=== PATIENT | female | born 1995 | race Caucasian/White ===

== ENCOUNTER 2023-09-20 11:15 | Outpatient (OUT) | payer BC, SELFPAY ==
[2023-09-20 11:49] LABS: Basophils Absolute Auto 0.1 10^3/uL (0.0-0.1); Basophils Percent Auto 0.8 % (0.2-2.0); Eosinophils Absolute Auto 0.1 10^3/uL (0.0-0.7); Eosinophils Percent Auto 0.5 % (0.9-7.0); Hematocrit 44.2 % (36.0-48.0); Hemoglobin 14.9 g/dL (12.0-16.0); Immature Granulocytes Abs Auto 0.05 10^3/uL (0.00-0.03); Immature Granulocytes Pct Auto 0.4 % (0.0-0.5); Lymphocytes Absolute Auto 2.1 10^3/uL (1.2-3.8); Lymphocytes Percent Auto 18.9 % (20.5-60.0); Mean Corpuscular HGB Conc 33.7 g/dL (29.9-35.2); Mean Corpuscular Hemoglobin 30.4 pg (26.7-34.0); Mean Corpuscular Volume 90.2 fL (81.0-99.0); Mean Platelet Volume 9.7 fL (9.5-13.5); Monocytes Absolute Auto 0.9 10^3/uL (0.3-0.8); Neutrophils Percent Auto 71.4 % (43.0-75.0); Platelet Count 348 10^3/uL (150-450); Red Cell Distribution Width 13.4 % (11.0-15.0); White Blood Count 11.2 10^3/uL (4.0-11.0)
[2023-09-20 12:02] LABS: Estimated Average Glucose 97 mg/dL
[2023-09-20 13:20] LABS: Alanine Aminotransferase 24 U/L (14-59); Albumin Level 3.9 g/dL (3.4-5.0); Alkaline Phosphatase 70 U/L (46-116); Anion Gap 13.1; Aspartate Amino Transferase 14 U/L (15-37); BUN Creatinine Ratio 9.2; Bilirubin Total 0.7 mg/dL (0.2-1.0); Calcium 9.7 mg/dL (8.5-10.1); Carbon Dioxide 26.4 mmol/L (21.0-32.0); Chloride 101 mmol/L (98-107); Chol HDL Ratio 2.6; Cholesterol 188 mg/dL (<=200); Estimated GFR (African America >60 (>=60); Estimated GFR (Non-African Ame >60 (>=60); Free T3 2.66 pg/mL (2.18-3.98); Glucose 89 mg/dL (74-106); HDL Cholesterol 72 mg/dL (40-60); Potassium 3.5 mmol/L (3.5-5.1); Sodium 137 mmol/L (136-145); Thyroid Stimulating Hormone 1.477 uIU/mL (0.358-3.740); Total Protein 7.9 g/dL (6.4-8.2); Triglycerides 85 mg/dL (<=150)
[2023-09-21 10:09] LABS: Insulin 11.4 uIU/mL (2.6-24.9)
== END 2023-09-20 11:16 | disposition home or self-care (01) ==
PROVIDERS: PCP Family Medicine; Visit Provider Family Medicine
DX: Z00.00 Encounter for general adult medical examination without abnormal findings (principal); E78.5 Hyperlipidemia, unspecified; R73.09 Other abnormal glucose; E55.9 Vitamin D deficiency, unspecified
CPT/HCPCS: 36415; 80053; 80061; 83036; 83525; 83540; 84436; 84443; 84481; 85025

== ENCOUNTER 2024-02-05 21:07 | Outpatient (REF) | payer SELFPAY ==
--- OUTSIDE RECORDS SUMMARY | 2024-02-05 21:12 | XMS_ITS | CCD ---
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 Consul nasima Unavailable PROVIDER, UNKNOWN Admitting Unavailable PROVIDER, UNKNOWN Attending Unavailable BOBBY DAWSON Primary Care Unavailable PROVIDER, UNKNOWN Admitting Unavailable PROVIDER, UNKNOWN Attending Unavailable BOBBY DAWSON Primary Care Unavailable DR BOBBY DAWSON Admitting Unavailable SAMIR, DR ROSALES Primary Care Unavailable SAMIR, DR ROSALES Consulting Unavailable SAMIR, DR ROSALES Attending Unavailable KAREKTAK, DR MARSHALL Attending Unavailable SAMIR, DR ROSALES Primary Care Unavailable KARMELISSA, DR MARSHALL Admitting Unavailable ROSY, DR MARSHALL Consulting Unavailable BOBBY DAWSON Primary Care Unavailable KENYATTA REIS Admitting Unavailable KENYATTA REIS Attending Unavailable Problems Active Problems Problem Classification Problem Date Documented Date Episodic/Chronic Immunizations and screening for infectious disease (5 sources) Encounter for screening for infections with a predominantly sexual mode of transmission; Translations: [Encounter for screening for human papillomavirus (HPV)] Onset: 12-21-2021 Episodic Other screening for suspected conditions (not mental disorders or infectious disease) (1 source) Encounter for screening for malignant neoplasm of cervix; Translations: [ENC SCREENING MALIG NEOPLASM CERV] Onset: 12-24-2021 Episodic Unclassified (2 sources) CONTACT W/AND (SUSP) EXPOS COVID-19; Translations: [CONTACT W/AND (SUSP) EXPOS COVID-19] Onset: 03-01-2021 Viral infection (1 source) COVID-19; Translations: [COVID-19] Onset: 03-01-2021 Past or Other Problems Problem Classification Problem Date Documented Da te Episodic/Chronic Acute bronchitis (1 source) Acute bronchitis, unspecified; Translations: [ACUTE BRONCHITIS UNSPECIFIED] Onset: 03-01-2021 Episodic Unclassified (1 source) CONTACT W/AND (SUSP) EXPOS COVID-19; Translations: [CONTACT W/AND (SUSP) EXPOS COVID-19] Onset: 02-25-2021 Results Test Name Value Interpretation Reference Range Facility CBC with Diffon 01-25-2022 Abs. Basophil 0.11 k/uL Normal 0.00-0.20 [facility] Comment on above: Performed By: #### C DP, CMPX #### [facility] [address] [place] [address] [place] [address] Hr Payroll Coordinator: Earl Izquierdo MD Abs.Imm.Granulocyte 0.10 k/uL Normal 0.00-0.30 [facility] Comment on above: Performed By: #### C DP, CMPX #### [address] [place] [address] Hr Payroll Coordinator: Earl Izquierdo MD Abs.Neutrophil (Seg) 7.04 k/uL Normal 1.50-8.10 [facility] Comment on above: Performed By: #### C DP, CMPX #### [address] [place] [id number] Hr Payroll Coordinator: Earl Izquierdo MD Basophils/100 WBC (Bld) 1 % Normal 0-2 [facility] Comment on above: Performed By: #### C DP, CMPX #### [facility] [address] [place] [address] [place] [address] Hr Payroll Coordinator: Earl Izquierdo MD Eosinophils (Bld) [#/Vol] 0.48 10*3/uL High 0.00-0.44 [facility] Comment on above: Performed By: #### C DP, CMPX #### [address] [place] [id number] Hr Payroll Coordinator: Earl Izquierdo MD Eosinophils/100 WBC (Bld) 4 % Normal 1-4 [facility] Comment on above: Performed By: #### C DP, CMPX #### [facility] [address] [place], [place] [id number] Hr Payroll Coordinator: Earl Izquierdo MD Erythrocyte distribution width (RBC) [Ratio] 16.3 % High 11.8-14.4 [facility] Comment on above: Performed By: #### C DP, CMPX #### [facility] [address] [place], [place] 6442783 Hr Payroll Coordinator: Earl Izquierdo MD Hematocrit (Bld) [Volume fraction] 41.0 % Normal 36.3-47.1 [facility] Comment on above: Performed By: #### C DP, CMPX #### [address] [place], [place] 8687583 Hr Payroll Coordinator: Earl Izquierdo MD Hemoglobin (Bld) [Mass/Vol] 12.6 g/dL Normal 11.9-15.1 [facility] Comment on above: Performed By: #### C DP, CMPX #### [address] [place], [place] [id number] Hr Payroll Coordinator: Earl Izquierdo MD Immature granulocytes/100 WBC (Bld) 1 % High 0 [facility] Comment on above: Performed By: #### C DP, CMPX #### [facility] [address] [place] [address] Dr. [place], [place] 7848883 Hr Payroll Coordinator: Earl Izquierdo MD Lymphocytes (Bld) [#/Vol] 4.07 10*3/uL High 1.10-3.70 [facility] Comment on above: Performed By: #### C DP, CMPX #### [facility] [address] [place], [place] [id number] Hr Payroll Coordinator: Earl Izquierdo MD Lymphocytes/100 WBC (Bld) 31 % Normal 24-43 [facility] Comment on above: Performed By: #### C DP, CMPX #### [facility] [address] [place], [place] 3351383 Hr Payroll Coordinator: Earl Izquierdo MD MCH (RBC) [Entitic mass] 27.9 pg Normal 25.2-33.5 [facility] Comment on above: Performed By: #### C DP, CMPX #### [facility] [address] [place], [facility]83 Hr Payroll Coordinator: Earl Izquierdo MD MCHC (RBC) [Mass/Vol] 30.7 g/dL Normal 28.4-34.8 [facility] Comment on above: Performed By: #### C DP, CMPX #### [facility] [address] [place], [facility]83 Hr Payroll Coordinator: Earl Izquierdo MD MCV (RBC) [Entitic vol] 90.9 fL Normal 82.6-102.9 [facility] Comment on above: Performed By: #### C DP, CMPX #### [facility] [address] [place], [facility]83 Hr Payroll Coordinator: Earl Izquierdo MD Monocytes (Bld) [#/Vol] 1.19 10*3/uL Normal 0.10-1.20 [facility] Comment on above: Performed By: #### C DP, CMPX #### [facility] [address] [place], [facility]83 Hr Payroll Coordinator: Earl Izquierdo MD Monocytes/100 WBC (Bld) 9 % Normal 3-12 [facility] Comment on above: Performed By: #### C DP, CMPX #### [facility] [address] [place] [address] Hr Payroll Coordinator: Earl Izquierdo MD Neutrophil (Seg) 54 % Normal 36-65 [facility] Comment on above: Performed By: #### C DP, CMPX #### [facility] [address] [place], [place] 0426583 Hr Payroll Coordinator: Earl Izquierdo MD NRBC Automated 0.0 per 100 WBC Normal 0.0 [facility] Comment on above: Performed By: #### C DP, CMPX #### [facility] [address] [place], [place] 9352283 Hr Payroll Coordinator: Earl Izquierdo MD Platelet mean volume (Bld) [Entitic vol] 10.0 fL Normal 8.1-13.5 [facility] Comment on above: Performed By: #### C DP, CMPX #### [address] [place], [place] 0140783 Hr Payroll Coordinator: Earl Izquierdo MD Platelets (Bld) [#/Vol] 383 10*3/uL Normal 138-453 [facility] Comment on above: Performed By: #### C DP, CMPX #### [address] [place], [place] 2145883 Hr Payroll Coordinator: Earl Izquierdo MD RBC (Bld) [#/Vol] 4.51 10*6/uL Normal 3.95-5.11 [facility] Comment on above: Performed By: #### C DP, CMPX #### [address] [place], [place] [id number] Hr Payroll Coordinator: aErl Izquierdo MD WBC (Bld) [#/Vol] 13.0 10*3/uL High 3.5-11.3 [facility] Comment on above: Performed By: #### C DP, CMPX #### [address] [place] [address] Hr Payroll Coordinator: Earl Izquierdo MD Comp Metabolic Pr/rfx MGon 0 01-25-2022 (cont.) Normal [facility] Comment on above: Result Comment: Aver age GFR for 20-29 years old: 116 mL/min/1.73sq m Chronic Kidney Disease: <60 mL/min/1.73sq m Kidney failure: <15 mL/min/1.73sq m eGFR calculated using average adult body mass. Additional eGFR calculator available at: http://www.[facility]/multiple_crcl_2012.htm Performed By: #### C DP, CMPX #### [facility] [address] [place] [address] [place] [address] Hr Payroll Coordinator: Earl Izquierdo MD Albumin [Mass/Vol] 3.7 g/dL Normal 3.5-5.2 [facility] Comment on above: Performed By: #### C DP, CMPX #### [facility] [address] [place] [address] [place] [address] Hr Payroll Coordinator: Earl Izquierdo MD Albumin/Glob Ratio 1.6 Normal 1.0-2.5 [facility] Comment on above: Performed By: #### C DP, CMPX #### [facility] [address] [place] [address] Dr[address] [place], [place] 6805583 Hr Payroll Coordinator: Earl Izquierdo MD Alkaline Phos 55 U/L Normal 35-104 [facility] Comment on above: Performed By: #### C DP, CMPX #### [address] [place] [address] Hr Payroll Coordinator: Earl Izquierdo MD ALT [Catalytic activity/Vol] 11 U/L Normal 5-33 [facility] Comment on above: Performed By: #### C DP, CMPX #### [facility] [address] [place], [place] [id number] Hr Payroll Coordinator: Earl Izquierdo MD Anion gap [Moles/Vol] 8 mmol/L Low 9-17 [facility] Comment on above: Performed By: #### C DP, CMPX #### [facility] [address] [place] [address] [place] [address] Hr Payroll Coordinator: Earl Izquierdo MD AST [Catalytic activity/Vol] 11 U/L Normal <32 [facility] Comment on above: Performed By: #### C DP, CMPX #### [facility] [address] [place], [place] 4829683 Hr Payroll Coordinator: Earl Izquierdo MD Bilirubin [Mass/Vol] 0.2 mg/dL Low 0.3-1.2 [facility] Comment on above: Performed By: #### C DP, CMPX #### [facility] [address] [place], [place] 7411483 Hr Payroll Coordinator: Earl Izquierdo MD BUN/CRE Ratio 12 Normal 9-20 [facility] Comment on above: Performed By: #### C DP, CMPX #### [facility] [address] [place] [address] Hr Payroll Coordinator: Earl Izquierdo MD Calcium [Mass/Vol] 8.6 mg/dL Normal 8.6-10.4 [facility] Comment on above: Performed By: #### C DP, CMPX #### [address] [place], [place] 4149783 Hr Payroll Coordinator: Earl Izquierdo MD Chloride [Moles/Vol] 107 mmol/L Normal 98-107 [facility] Comment on above: Performed By: #### C DP, CMPX #### [facility] [address] [place], [place] [id number] Hr Payroll Coordinator: Earl Izquierdo MD CO2 [Moles/Vol] 26 mmol/L Normal 20-31 [facility] Comment on above: Performed By: #### C DP, CMPX #### [facility] [address] [place], [place] 7111083 Hr Payroll Coordinator: Earl Izquierdo MD Creatinine [Mass/Vol] 0.68 mg/dL Normal 0.50-0.90 [facility] Comment on above: Performed By: #### C DP, CMPX #### [facility] [address] [place], [place] 9412583 Hr Payroll Coordinator: Earl Izquierdo MD GFR, Amer >60 Normal >60 [facility] Comment on above: Performed By: #### C DP, CMPX #### [facility] [address] [place], [place] 0872083 Hr Payroll Coordinator: Earl Izquierdo MD GFR,non Amer >60 Normal >60 [facility] Comment on above: Performed By: #### C DP, CMPX #### [facility] [address] [place], [place] 7649883 Hr Payroll Coordinator: Earl Izquierdo MD Glucose [Mass/Vol] 95 mg/dL Normal 70-99 [facility] Comment on above: Performed By: #### C DP, CMPX #### [facility] [address] [place], [place] 8068183 Hr Payroll Coordinator: Earl Izquierdo MD Potassium [Moles/Vol] 4.0 mmol/L Normal 3.7-5.3 [facility] Comment on above: Performed By: #### C DP, CMPX #### [facility] [address] [place] [address] Dr[address] [place], [place] 3691283 Hr Payroll Coordinator: Earl Izquierdo MD Protein [Mass/Vol] 6.0 g/dL Low 6.4-8.3 [facility] Comment on above: Performed By: #### C DP, CMPX #### [facility] [address] [place], [place] [id number] Hr Payroll Coordinator: Earl Izquierdo MD Sodium [Moles/Vol] 141 mmol/L Normal 135-144 [facility] Comment on above: Performed By: #### C DP, CMPX #### [facility] [address] [place] [address] Hr Payroll Coordinator: Earl Izquierdo MD Staging: Normal [facility] Comment on above: Result Comment: Stag e 1: Some kidney damage normal GFR Stage 2: Mild kidney damage GFR 60-89 Stage 3: Moderate kidney damage GFR 30-59 Stage 4: Severe kidney damage GFR 15-29 Stage 5: Severe kidney damage GFR <15 ESRD - chronic treatment by dialysis or transplant Performed By: #### C DP, CMPX #### [facility] [address] [place] [address] [place] [address] Hr Payroll Coordinator: Earl Izquierdo MD Urea nitrogen [Mass/Vol] 8 mg/dL Normal 6-20 [facility] Comment on above: Performed By: #### C DP, CMPX #### [address] [place], [place] 8714983 Hr Payroll Coordinator: Earl Izquierdo MD Acetaminophenon 01-24-2022 Acetaminophen [Mass/Vol] ug/mL Low 10-30 [facility] Comment on above: Performed By: #### C DP, CMPX #### [facility] [address] [place] [address] Dr. [place], [facility]83 Hr Payroll Coordinator: Earl Izquierdo MD CBC with Diffon 01-24-2022 Abs. Basophil 0.12 k/uL Normal 0.00-0.20 [facility] Comment on above: Performed By: #### C DP, CP #### [address] [place], [place] 3052083 Hr Payroll Coordinator: Earl Izquierdo MD Abs.Imm.Granulocyte 0.05 k/uL Normal 0.00-0.30 [facility] Comment on above: Performed By: #### C DP, CP #### [facility] [address] [place] [address] Dr. [place], [place] [id number] Hr Payroll Coordinator: Earl Izquierdo MD Abs.Neutrophil (Seg) 7.91 k/uL Normal 1.50-8.10 [facility] Comment on above: Performed By: #### C DP, CP #### [address] [place], [place] 8111183 Hr Payroll Coordinator: Earl Izquierdo MD Basophils/100 WBC (Bld) 1 % Normal 0-2 [facility] Comment on above: Performed By: #### C DP, CP #### [facility] [address] [place], [place] 6194783 Hr Payroll Coordinator: Earl Izquierdo MD Eosinophils (Bld) [#/Vol] 0.46 10*3/uL High 0.00-0.44 [facility] Comment on above: Performed By: #### C DP, CP #### [address] [place], [place] 0769883 Hr Payroll Coordinator: Earl Izquierdo MD Eosinophils/100 WBC (Bld) 4 % Normal 1-4 [facility] Comment on above: Performed By: #### C DP, CP #### [address] [place], [facility]83 Hr Payroll Coordinator: Earl Izquierdo MD Erythrocyte distribution width (RBC) [Ratio] 15.9 % High 11.8-14.4 [facility] Comment on above: Performed By: #### C DP, CP #### [address] [place], [facility]83 Hr Payroll Coordinator: Earl Izquierdo MD Hematocrit (Bld) [Volume fraction] 45.7 % Normal 36.3-47.1 [facility] Comment on above: Performed By: #### C DP, CP #### [address] [place], [facility]83 Hr Payroll Coordinator: Earl Izquierdo MD Hemoglobin (Bld) [Mass/Vol] 14.5 g/dL Normal 11.9-15.1 [facility] Comment on above: Performed By: #### C DP, CP #### [address] [place] [address] Hr Payroll Coordinator: Earl Izquierdo MD Immature granulocytes/100 WBC (Bld) 0 % Normal 0 [facility] Comment on above: Performed By: #### C DP, CP #### [facility] [address] [place], [facility]83 Hr Payroll Coordinator: Earl Izquierdo MD Lymphocytes (Bld) [#/Vol] 3.57 10*3/uL Normal 1.10-3.70 [facility] Comment on above: Performed By: #### C DP, CP #### [address] [place], [facility]83 Hr Payroll Coordinator: Earl Izquierdo MD Lymphocytes/100 WBC (Bld) 27 % Normal 24-43 [facility] Comment on above: Performed By: #### C DP, CP #### [address] [place], [facility]83 Hr Payroll Coordinator: Earl Izquierdo MD MCH (RBC) [Entitic mass] 28.0 pg Normal 25.2-33.5 [facility] Comment on above: Performed By: #### C DP, CP #### [address] [place], [facility]83 Hr Payroll Coordinator: Earl Izquierdo MD MCHC (RBC) [Mass/Vol] 31.7 g/dL Normal 28.4-34.8 [facility] Comment on above: Performed By: #### C DP, CP #### [address] [place], [place] [address] Hr Payroll Coordinator: Earl Izquierdo MD MCV (RBC) [Entitic vol] 88.2 fL Normal 82.6-102.9 [facility] Comment on above: Performed By: #### C DP, CP #### [address] [place], [facility]83 Hr Payroll Coordinator: Earl Izquierdo MD Monocytes (Bld) [#/Vol] 0.94 10*3/uL Normal 0.10-1.20 [facility] Comment on above: Performed By: #### C DP, CP #### [facility] [address] [place], [place] 7663283 Hr Payroll Coordinator: Earl Izquierdo MD Monocytes/100 WBC (Bld) 7 % Normal 3-12 [facility] Comment on above: Performed By: #### C DP, CP #### [facility] [address] [place], [place] 0091683 Hr Payroll Coordinator: Earl Izquierdo MD Neutrophil (Seg) 61 % Normal 36-65 [facility] Comment on above: Performed By: #### C DP, CP #### [facility] [address] [place], [place] 5946283 Hr Payroll Coordinator: Earl Izquierdo MD NRBC Automated 0.0 per 100 WBC Normal 0.0 [facility] Comment on above: Performed By: #### C DP, CP #### [address] [place], [place] 7966483 Hr Payroll Coordinator: Earl Izquierdo MD Platelet mean volume (Bld) [Entitic vol] 9.6 fL Normal 8.1-13.5 [facility] Comment on above: Performed By: #### C DP, CP #### [address] [place], [place] 9288383 Hr Payroll Coordinator: Earl Izquierdo MD Platelets (Bld) [#/Vol] 445 10*3/uL Normal 138-453 [facility] Comment on above: Performed By: #### C DP, CP #### [facility] [address] [place] [address] Dr. [place], [place] 7368483 Hr Payroll Coordinator: Earl Izquierdo MD RBC (Bld) [#/Vol] 5.18 10*6/uL High 3.95-5.11 [facility] Comment on above: Performed By: #### C DP, CP #### [address] [place] [address] Hr Payroll Coordinator: Earl Izquierdo MD WBC (Bld) [#/Vol] 13.1 10*3/uL High 3.5-11.3 [facility] Comment on above: Performed By: #### C DP, CP #### [facility] [address] [place] [address] Hr Payroll Coordinator: Earl Izquierdo MD Comp Metabolic Profon 2021 (cont.) Normal [facility] Comment on above: Result Comment: Aver age GFR for 20-29 years old: 116 mL/min/1.73sq m Chronic Kidney Disease: <60 mL/min/1.73sq m Kidney failure: <15 mL/min/1.73sq m eGFR calculated using average adult body mass. Additional eGFR calculator available at: http://www.[facility]/multiple_crcl_2011.htm Performed By: #### C ALLAN, CP #### [facility] [address] [place], [place] 9704983 Hr Payroll Coordinator: Earl Izquierdo MD Albumin [Mass/Vol] 4.9 g/dL Normal 3.5-5.2 [facility] Comment on above: Performed By: #### C DP, CP #### [address] [place], [place] 2448683 Hr Payroll Coordinator: Earl Izquierdo MD Albumin/Glob Ratio 1.8 Normal 1.0-2.5 [facility] Comment on above: Performed By: #### C DP, CP #### [facility] [address] [place], [place] 9852283 Hr Payroll Coordinator: Earl Izquierdo MD Alkaline Phos 67 U/L Normal 35-104 [facility] Comment on above: Performed By: #### C DP, CP #### [facility] [address] [place] [address] Hr Payroll Coordinator: Earl Izquierdo MD ALT [Catalytic activity/Vol] 14 U/L Normal 5-33 [facility] Comment on above: Performed By: #### C DP, CP #### [facility] [address] [place], [place] 6923583 Hr Payroll Coordinator: Earl Izquierdo MD Anion gap [Moles/Vol] 11 mmol/L Normal 9-17 [facility] Comment on above: Performed By: #### C DP, CP #### [facility] [address] [place], [place] 7964683 Hr Payroll Coordinator: Earl Izquierdo MD AST [Catalytic activity/Vol] 18 U/L Normal <32 [facility] Comment on above: Performed By: #### C DP, CP #### [facility] [address] [place], [place] 1445083 Hr Payroll Coordinator: Earl Izquierdo MD Bilirubin [Mass/Vol] 0.2 mg/dL Low 0.3-1.2 [facility] Comment on above: Performed By: #### C DP, CP #### [facility] [address] [place], [place] 2115783 Hr Payroll Coordinator: aErl Izquierdo MD BUN/CRE Ratio 7 Low 9-20 [facility] Comment on above: Performed By: #### C DP, CP #### [address] [place], [place] 6108883 Hr Payroll Coordinator: Earl Izquierdo MD Calcium [Mass/Vol] 9.5 mg/dL Normal 8.6-10.4 [facility] Comment on above: Performed By: #### C DP, CP #### [facility] [address] [place], [place] 3884883 Hr Payroll Coordinator: Earl Izquierdo MD Chloride [Moles/Vol] 106 mmol/L Normal 98-107 [facility] Comment on above: Performed By: #### C DP, CP #### [facility] [address] [place], [place] 8315383 Hr Payroll Coordinator: Earl Izquierdo MD CO2 [Moles/Vol] 25 mmol/L Normal 20-31 [facility] Comment on above: Performed By: #### C DP, CP #### [facility] [address] [place], [place] 5423883 Hr Payroll Coordinator: Earl Izquierdo MD Creatinine [Mass/Vol] 0.74 mg/dL Normal 0.50-0.90 [facility] Comment on above: Performed By: #### C DP, CP #### [facility] [address] [place], [place] 3772483 Hr Payroll Coordinator: Earl Izquierdo MD GFR, Amer >60 Normal >60 [facility] Comment on above: Performed By: #### C DP, CP #### [facility] [address] [place], [place] 9859783 Hr Payroll Coordinator: Earl Izquierdo MD GFR,non Amer >60 Normal >60 [facility] Comment on above: Performed By: #### C DP, CP #### [facility] [address] [place], [place] 0600283 Hr Payroll Coordinator: Earl Izquierdo MD Glucose [Mass/Vol] 95 mg/dL Normal 70-99 [facility] Comment on above: Performed By: #### C DP, CP #### [facility] [address] [place], [place] 2862483 Hr Payroll Coordinator: Earl Izquierdo MD Potassium [Moles/Vol] 3.6 mmol/L Low 3.7-5.3 [facility] Comment on above: Performed By: #### C DP, CP #### [facility] [address] [place], [place] 3754683 Hr Payroll Coordinator: Earl Izquierdo MD Protein [Mass/Vol] 7.7 g/dL Normal 6.4-8.3 [facility] Comment on above: Performed By: #### C DP, CP #### [facility] [address] [place], [place] 5318783 Hr Payroll Coordinator: Earl Izquierdo MD Sodium [Moles/Vol] 142 mmol/L Normal 135-144 [facility] Comment on above: Performed By: #### C DP, CP #### [facility] [address] [place] [address] [address] [place], [place] 1155183 Hr Payroll Coordinator: Earl Izquierdo MD Staging: Normal [facility] Comment on above: Result Comment: Stag e 1: Some kidney damage normal GFR Stage 2: Mild kidney damage GFR 60-89 Stage 3: Moderate kidney damage GFR 30-59 Stage 4: Severe kidney damage GFR 15-29 Stage 5: Severe kidney damage GFR <15 ESRD - chronic treatment by dialysis or transplant Performed By: #### C DP, CP #### [facility] [address] [place] [address] [place] [address] Hr Payroll Coordinator: Earl Izquierdo MD Urea nitrogen [Mass/Vol] 5 mg/dL Low 6-20 [facility] Comment on above: Performed By: #### C DP, CP #### [facility] [address] [place] [address] [address], [place] 3782083 Hr Payroll Coordinator: Earl Izquierdo MD Drug Scr, Abuse, Uron 2021 Amphetamine(s),Ur Negative Normal NEG [facility] Comment on above: Performed By: #### U HCG, UA, ARCENIO #### [address] [place], [place] [id number] Hr Payroll Coordinator: Earl Izquierdo MD Barbiturate(s),Ur Negative Normal NEG [facility] Comment on above: Performed By: #### U HCG, UA, ARCENIO #### [facility] [address] [place] [address] [address] [place], [place] [id number] Hr Payroll Coordinator: Earl Izquierdo MD Benzodiazepine(s) Negative Normal NEG [facility] Comment on above: Performed By: #### U HCG, UA, ARCENIO #### [facility] [address] [place] [address] [address] [place] [id number] Hr Payroll Coordinator: Earl Izquierdo MD Buprenorphrine, Ur Negative Normal [facility] Comment on above: Performed By: #### U HCG, UA, ARCENIO #### [facility] [address] [place] [address] Hr Payroll Coordinator: Earl Izquierdo MD Cannabinoid(s),Ur Positive Abnormal NEG [facility] Comment on above: Performed By: #### U HCG, UA, ARCENIO #### [facility] [address] [place] [address] Hr Payroll Coordinator: Earl Izquierdo MD Cocaine Metabolite Negative Normal [facility] Comment on above: Performed By: #### U HCG, UA, ARCENIO #### [facility] [address] [place] [address] Hr Payroll Coordinator: Earl Izquierdo MD Methadone Ql (U) Negative Normal [facility] Comment on above: Performed By: #### U HCG, UA, ARCENIO #### [facility] [address] [place] [address] Dr[address] [place], [place] [id number] Hr Payroll Coordinator: Earl Izquierdo MD Methamphetamine, Ur Negative Normal [facility] Comment on above: Performed By: #### U HCG, UA, ARCENIO #### [facility] [address] [place] [address] Hr Payroll Coordinator: Earl Izquierdo MD Opiate(s), Ur Negative Normal [facility] Comment on above: Performed By: #### U HCG, UA, ARCENIO #### [facility] [address] [place] [address] Hr Payroll Coordinator: Earl Izquierdo MD Oxycodone, Urine Negative Normal [facility] Comment on above: Performed By: #### U HCG, UA, ARCENIO #### [facility] [address] [place] [address] Hr Payroll Coordinator: Earl Izquierdo MD Phencyclidine, Ur Negative Normal NEG [facility] Comment on above: Performed By: #### U HCG, UA, ARCENIO #### [facility] [address] [place] [address] Hr Payroll Coordinator: Earl Izquierdo MD Propoxyphene,Urine Negative Normal NEG [facility] Comment on above: Performed By: #### U HCG, UA, ARCENIO #### [facility] [address] [place] [address] Hr Payroll Coordinator: Earl Izquierdo MD Tricyclic antidepressants Screen Ql (U) Negative Normal NEG [facility] Comment on above: Result Comment: Drug screen results are to be used for medical purposes only. All positive results are unconfirmed. Testing for employment or legal uses should be sent to a reference laboratory for confirmation. Performed By: #### U HCG, UA, ARCENIO #### [facility] [address] [place] [address] [place] [address] Hr Payroll Coordinator: Earl Izquierdo MD Ethanol Alcoholon 01-24-2022 Ethanol [Mass/Vol] 158 mg/dL High <10 [facility] Comment on above: Performed By: #### A LCB #### [facility] [address] [place] [address] [place] [address] Hr Payroll Coordinator: Earl Izquierdo MD Ethanol percent 0.158 % High <0.010 [facility] Comment on above: Performed By: #### A LCB #### [facility] [address] [place] [address] [place] [address] Hr Payroll Coordinator: Earl Izquierdo MD HCG, ,Urineon 01-24 Beta HCG ( test) Ql (U) Negative Normal NEG [facility] Comment on above: Result Comment: Spec imens with hCG levels near the threshold of the test (25 mIU/mL) may give a negative or indeterminate result. In such cases, another test should be performed with a new specimen in 48-72 hours. If early is suspected clinically in this setting, correlation with quantitative serum b-hCG level is suggested. [facility] has confirmed the use of plasma for this test. This has not been cleared or approved by the U.S. Food and Drug Administration. The FDA has determined that such clearance is not necessary. Performed By: #### U HCG, UA, ARCENIO #### [facility] [address] [place] [address] Hr Payroll Coordinator: Earl Izquierdo MD [id number] 01-24-2022 SARS-CoV-2 (COVID-19) RNA ALEA+probe Ql (Unsp spec) Not detected Normal NOTDET [facility] Comment on above: Result Comment: Rapid NAAT: The specimen is NEGATIVE for SARS-CoV-2, the novel coronavirus associated with COVID-19. The ID NOW COVID-19 assay is designed to detect the virus that causes COVID-19 in patients with signs and symptoms of infection who are suspected of COVID-19. An individual without symptoms of COVID-19 and who is not shedding SARS-CoV-2 virus would expect to have a negative (not detected) result in this assay. Negative results should be treated as presumptive and, if inconsistent with clinical signs and symptoms or necessary for patient management, should be tested with an alternative molecular assay. Negative results do not preclude SARS-CoV-2 infection and should not be used as the sole basis for patient management decisions. Fact sheet for Healthcare Providers: https://www.fda.gov/media/935520/download Fact sheet for Patients: https://www.fda.gov/media/198594/download Methodology: Isothermal Nucleic Acid Amplification Performed By: #### C OVRB #### [facility] [address] [place] [address] Hr Payroll Coordinator: Earl Izquierdo MD Salicylateon 01-24-2022 Salicylate <1 Low 3-10 [facility] Comment on above: Performed By: #### S ALI #### [facility] [address] [place] [address] Hr Payroll Coordinator: Earl Izquierdo MD Urinalysis, Routineon 2021 Bilirubin, SemiQt,Ur Negative Normal NEG [facility] Comment on above: Performed By: #### U HCG, UA, ARCENIO #### [facility] [address] [place], [place] [id number] Hr Payroll Coordinator: Earl Izquierdo MD Blood, Urine Negative Normal NEG [facility] Comment on above: Performed By: #### U HCG, UA, ARCENIO #### [facility] [address] [place], [place] [id number] Hr Payroll Coordinator: Earl Izquierdo MD Clarity (U) Clear Normal CLEAR [facility] Comment on above: Performed By: #### U HCG, UA, ARCENIO #### [address] [place], [place] [address]83 Hr Payroll Coordinator: Earl Izquierdo MD Color (U) Yellow Normal YEL [facility] Comment on above: Performed By: #### U HCG, UA, ARCENIO #### [address] [place], [place] [id number] Hr Payroll Coordinator: Earl Izquierdo MD Glucose Ql (U) Negative Normal NEG [facility] Comment on above: Performed By: #### U HCG, UA, ARCENIO #### [address] [place], [place] 348[address]83 Hr Payroll Coordinator: Earl Izquierdo MD Ketones Ql (U) Negative Normal NEG [facility] Comment on above: Performed By: #### U HCG, UA, ARCENIO #### [facility] [address] [place] [address] Dr. [place], [place] [id number] Hr Payroll Coordinator: Earl Izquierdo MD Leukocyte esterase Test strip Ql (U) Negative Normal NEG [facility] Comment on above: Performed By: #### U HCG, UA, ARCENIO #### [facility] [address] [place] [address] Dr. [place], [place] [id number] Hr Payroll Coordinator: Earl Izquierdo MD Nitrite,Ur Negative Normal NEG [facility] Comment on above: Performed By: #### U HCG, UA, ARCENIO #### [facility] [address] [place], [place] [address] Hr Payroll Coordinator: Earl Izquierdo MD PH,Ur 6.5 Normal 5.0-9.0 [facility] Comment on above: Performed By: #### U HCG, UA, ARCENIO #### [facility] [address] [place], [place] [address] Hr Payroll Coordinator: Earl Izquierdo MD Protein Ql (U) Negative Normal NEG [facility] Comment on above: Performed By: #### U HCG, UA, ARCENIO #### [address] [place], [facility] Hr Payroll Coordinator: Earl Izquierdo MD Spec. [place],Ur 1.015 Normal 1.010-1.020 [facility] Comment on above: Performed By: #### U HCG, UA, ARCENIO #### [address] [place], [facility] Hr Payroll Coordinator: Earl Izquierdo MD Urobilinogen,Ur Normal Normal NORM [facility] Comment on above: Performed By: #### U HCG, UA, ARCENIO #### [address] [place], [facility] Hr Payroll Coordinator: Earl Izquierdo MD CHLAMYDIA/GONOCOCCUS ALEA (SW AB/URINE/PAPon 12-24-2021 Chlamydia trachomatis, ALEA Negative Normal Negative [facility] Comment on above: Performed By: #### C T/NGNA #### [facility] [address] [place] [address] Dr. Britany Martin Neisseria gonorrhoeae, ALEA Negative Normal Negative [facility] Comment on above: Performed By: #### C T/NGNA #### [facility] [address] [place] [address] Dr. Britany Martin PAP ACOG PANEL 2: 21 to 29on 12-24-2021 . . Normal [facility] Comment on above: Performed By: #### [id number] #### [facility] [address] [place] [address] Dr. Britany Martin Age Gdln ACOG Testing 23- [facility] Comment on above: Performed By: #### [id number] #### [facility] [address] [place] [address] Dr. Britany Martin DIAGNOSIS: Comment [facility] Comment on above: Result Comment: NEGA TIVE FOR INTRAEPITHELIAL LESION OR MALIGNANCY. Performed By: #### [id number] #### [facility] [address] [place] [address] Dr. Britany Martin Methodology: Comment [facility] Comment on above: Result Comment: This liquid based ThinPrep(R) pap test was screened with the use of an image guided system. Performed By: #### [id number] #### [facility] [address] [place] [address] Dr. Britany Martin Note: Comment [facility] Comment on above: Result Comment: The Pap smear is a screening test designed to aid in the detection of premalignant and malignant conditions of the uterine cervix. It is not a diagnostic procedure and should not be used as the sole means of detecting cervical cancer. Both false-positive and false-negative reports do occur. . Performed By: #### 4 [id number] #### [facility] [address] [place] [address] Dr. Britany Martin Performed by: Comment Normal [facility] Comment on above: Result Comment: Afsaneh Wilhelm, Reports Analysis Manager (ASCP) Performed By: #### [id number] #### [facility] [address] [place] [address] Dr. Britany Martin Reflex Criteria: Comment [facility] Comment on above: Result Comment: The HPV DNA reflex criteria were not met with this specimen result therefore, no HPV testing was performed. . Performed By: #### 4 [id number] #### [facility] [address] [place] [address] Dr. Britany Martin Specimen adequacy: Comment Normal [facility] Comment on above: Result Comment: Sati sfactory for evaluation. Endocervical and/or squamous metaplastic cells (endocervical component) are present. Performed By: #### 4 [id number] #### [facility] [address] [place] [address] Dr. Britany Martin VAGINITIS/VAGINOSIS DNA PROB Clement 12-23-2021 Corina species Negative Normal Negative [facility] Comment on above: Performed By: #### V AGINT #### [facility] [address] [place] [address] Dr. Britany Martin Gardnerella vaginalis Negative Normal Negative [facility] Comment on above: Performed By: #### V AGINT #### [facility] [address] [place] [address] Dr. Britany Martin Trichomonas vaginalis Negative Normal Negative [facility] Comment on above: Performed By: #### V AGINT #### [facility] [address] [place] [address] Dr. Britany Martin Covid-19 PCR (CVDTBH)on SARS-CoV-2 (COVID-19) RNA ALEA+probe Ql (Unsp spec) Detected Critically abnormal NOT DETECTED [facility] Comment on above: Result Comment: This test is not yet approved or cleared by the [place] FDA. When there are no FDA-approved or cleared tests available, and other criteria are met, FDA can make tests available under an emergency access mechanism called an Emergency Use Authorization (EUA). The EUA for this test is supported by the [place] of Health and Human Service's (HHS's) declaration that circumstances exist to justify the emergency use of in vitro diagnostics for the detection and/or diagnosis of the virus that causes COVID-19. This EUA will remain in effect (meaning this test can be used) for the duration of the COVID-19 declaration justifying emergency of IVDs, unless it is terminated or revoked by FDA (after which the test may no longer be used). Performed By: #### C VDTBH #### [facility] [address] [place] [address] Dr. Britany Martin Complete Blood Count Auto Di ffon 10-04-2021 Basophils (Bld) [#/Vol] 0.1 10*3/uL Normal 0.0-0.2 [facility] Comment on above: Result Comment: PERF ORMED BY: [place] [address] PATHOLOGIST WEFT STRAIGHTENER MOHINI GMOEZ M.D. Performed By: #### C BC, CMP, ETOH #### [address] Basophils/100 WBC (Bld) 0.9 % Normal . [facility] Comment on above: Performed By: #### C BC, CMP, ETOH #### [place] [address] [place] Eosinophils (Bld) [#/Vol] 0.2 10*3/uL Normal 0.0-0.45 [facility] Comment on above: Performed By: #### C BC, CMP, ETOH #### [address] Eosinophils/100 WBC (Bld) 2.0 % Normal . [facility] Comment on above: Performed By: #### C BC, CMP, ETOH #### [address] Erythrocyte distribution width (RBC) [Ratio] 21.1 % High 11.9-15.3 [facility] Comment on above: Performed By: #### C BC, CMP, ETOH #### [place] [address] [place] Hematocrit (Bld) [Volume fraction] 32.6 % Low 34.0-46.4 [facility] Comment on above: Performed By: #### C BC, CMP, ETOH #### [place] [address] [place] Hemoglobin (Bld) [Mass/Vol] 10.3 g/dL Low 11.8-15.4 [facility] Comment on above: Performed By: #### C BC, CMP, ETOH #### [place] [address] [place] Lymphocytes (Bld) [#/Vol] 2.9 10*3/uL Normal 1.00-4.8 [facility] Comment on above: Performed By: #### C BC, CMP, ETOH #### [facility] [address] Lymphocytes/100 WBC (Bld) 25.2 % Normal . [facility] Comment on above: Performed By: #### C BC, CMP, ETOH #### [facility] [address] MCH (RBC) [Entitic mass] 22.8 pg Low 24.7-34.3 [facility] Comment on above: Performed By: #### C BC, CMP, ETOH #### [address] MCV (RBC) [Entitic vol] 71.9 fL Low 80-100 [facility] Comment on above: Performed By: #### C BC, CMP, ETOH #### [address] Mean Corpuscular HGB Conc 31.8 g/dL Low 32.0-35.0 [facility] Comment on above: Performed By: #### C BC, CMP, ETOH #### [address] Monocytes (Bld) [#/Vol] 0.9 10*3/uL High 0.0-0.8 [facility] Comment on above: Performed By: #### C BC, CMP, ETOH #### [place] [address] [place] Monocytes/100 WBC (Bld) 7.8 % Normal . [facility] Comment on above: Performed By: #### C BC, CMP, ETOH #### [address] Neutrophils (Bld) [#/Vol] 7.3 10*3/uL Normal 1.8-7.7 [facility] Comment on above: Performed By: #### C BC, CMP, ETOH #### [address] [place] [address] [place] Neutrophils/100 WBC (Bld) 64.1 % Normal . [facility] Comment on above: Performed By: #### C BC, CMP, ETOH #### [facility] [address] Nucleated RBC/100 WBC (Bld) [Ratio] 0.0 % Normal 0-0.5 [facility] Comment on above: Performed By: #### C BC, CMP, ETOH #### [facility] [address] Platelet mean volume (Bld) [Entitic vol] 7.4 fL Normal 6.3-10.7 [facility] Comment on above: Performed By: #### C BC, CMP, ETOH #### [address] Platelets (Bld) [#/Vol] 494 10*3/uL High 150-450 [facility] Comment on above: Performed By: #### C BC, CMP, ETOH #### [address] RBC (Bld) [#/Vol] 4.53 10*6/uL Normal 3.60-5.00 [facility] Comment on above: Performed By: #### C BC, CMP, ETOH #### [place] [address] [place] WBC (Bld) [#/Vol] 11.4 10*3/uL High 4.5-11.0 [facility] Comment on above: Performed By: #### C BC, CMP, ETOH #### [address] Comprehensive Metabolic Pane venus 02-22-2021 Albumin [Mass/Vol] 4.0 g/dL Normal 3.2-5.5 [facility] Comment on above: Performed By: #### C BC, CMP, ETOH #### [address] Albumin/Globulin [Mass ratio] 1.4 {ratio} Normal [facility] Comment on above: Performed By: #### C BC, CMP, ETOH #### [facility] [address] [place] [address] [place] ALP [Catalytic activity/Vol] 61 U/L Normal 32-92 [facility] Comment on above: Performed By: #### C BC, CMP, ETOH #### [facility] [address] [place] [id number] [place] ALT [Catalytic activity/Vol] 20 U/L Normal 10-60 [facility] Comment on above: Performed By: #### C BC, CMP, ETOH #### [facility] [address] [place] [address] [place] AST [Catalytic activity/Vol] 21 U/L Normal 10-42 [facility] Comment on above: Performed By: #### C BC, CMP, ETOH #### [facility] [address] Bilirubin [Mass/Vol] 0.4 mg/dL Normal 0.3-1.2 [facility] Comment on above: Performed By: #### C BC, CMP, ETOH #### [facility] [address] [place] [address] [place] Calcium [Mass/Vol] 9.4 mg/dL Normal 8.2-10.2 [facility] Comment on above: Performed By: #### C BC, CMP, ETOH #### [facility] [address] [place] [id number] [place] Chloride [Moles/Vol] 102 mmol/L Normal 95-114 [facility] Comment on above: Performed By: #### C BC, CMP, ETOH #### [facility] [address] [place] [address] [place] CO2 [Moles/Vol] 24.8 mmol/L Normal 22.0-30.0 [facility] Comment on above: Performed By: #### C BC, CMP, ETOH #### [facility] [address] [place] [address] [place] Creatinine [Mass/Vol] 0.65 mg/dL Normal 0.44-1.03 [facility] Comment on above: Performed By: #### C BC, CMP, ETOH #### [address] Creatinine Clr Calc Pharmacy 177.86 [facility] Comment on above: Result Comment: PERF ORMED BY: [place] [address] PATHOLOGIST WEFT STRAIGHTENER MOHINI GOMEZ M.D. Performed By: #### C BC, CMP, ETOH #### [address] Estimated GFR ( Verna > 60 [facility] Comment on above: Result Comment: GFR estimated reference range: According to KDOQI guidelines, <60 ml/min/1.73m2 is sufficient to diagnose a patient with chronic kidney disease. Performed By: #### C BC, CMP, ETOH #### [address] Estimated GFR (Non- Am > 60 [facility] Comment on above: Performed By: #### C BC, CMP, ETOH #### [address] Globulin (S) [Mass/Vol] 2.8 g/dL Normal [facility] Comment on above: Performed By: #### C BC, CMP, ETOH #### [address] Glucose [Mass/Vol] 89 mg/dL Normal 70-100 [facility] Comment on above: Result Comment: [place] Glucose Reference Range is dependent on time and content of last meal. Glucose of more than 200 mg/dL in a nonstressed, ambulatory subject supports the diagnosis of Diabetes Mellitus. ADA recommended reference range Performed By: #### C BC, CMP, ETOH #### [address] Potassium [Moles/Vol] 4.1 mmol/L Normal 3.5-5.1 [facility] Comment on above: Performed By: #### C BC, CMP, ETOH #### [address] Protein [Mass/Vol] 6.8 g/dL Normal 6.1-7.9 [facility] Comment on above: Performed By: #### C BC, CMP, ETOH #### [facility] [address] [place] [address] [place] Sodium [Moles/Vol] 137 mmol/L Normal 136-146 [facility] Comment on above: Performed By: #### C BC, CMP, ETOH #### [facility] [address] [place] [address] [place] Urea nitrogen [Mass/Vol] 8 mg/dL Low 9- [facility] Comment on above: Performed By: #### C BC, CMP, ETOH #### [facility] [address] [place] [address] [place] Dipstick and Microscopicon 1 Appearance (U) Clear Normal Clear [facility] Comment on above: Order Comment: Name Collection Type:: Clean-Voided Midstream Performed By: #### U HCG, URDS, ADDONUAPLUS #### [place] [address] [place] Bacteria,Urine None Seen Normal None Seen [facility] Comment on above: Order Comment: Name Collection Type:: Clean-Voided Midstream Performed By: #### U HCG, URDS, ADDONUAPLUS #### [place] [address] [place] Bilirubin,Urine Negative Normal Negative [facility] Comment on above: Order Comment: Name Collection Type:: Clean-Voided Midstream Performed By: #### U HCG, URDS, ADDONUAPLUS #### [place] [address] [place] Color (U) Yellow Normal Yellow [facility] Comment on above: Order Comment: Name Collection Type:: Clean-Voided Midstream Performed By: #### U HCG, URDS, ADDONUAPLUS #### [facility] [address] [place] [address] [place] Glucose Ql (U) Normal Normal Normal [facility] Comment on above: Order Comment: Name Collection Type:: Clean-Voided Midstream Performed By: #### U HCG, URDS, ADDONUAPLUS #### [facility] [address] [place] [address] Hyaline Casts,Urine 0-8 Normal 0-8 [facility] Comment on above: Order Comment: Name Collection Type:: Clean-Voided Midstream Performed By: #### U HCG, URDS, ADDONUAPLUS #### [facility] [address] [place] [address] Ketones Ql (U) Negative Normal Negative [facility] Comment on above: Order Comment: Name Collection Type:: Clean-Voided Midstream Performed By: #### U HCG, URDS, ADDONUAPLUS #### [address] Leukocyte esterase Test strip Ql (U) Negative Normal Negative [facility] Comment on above: Order Comment: Name Collection Type:: Clean-Voided Midstream Performed By: #### U HCG, URDS, ADDONUAPLUS #### [address] Nitrite,Urine Negative Normal Negative [facility] Comment on above: Order Comment: Name Collection Type:: Clean-Voided Midstream Performed By: #### U HCG, URDS, ADDONUAPLUS #### [facility] [address] [place] [address] Occult Blood,Urine 1+ High Negative [facility] Comment on above: Order Comment: Name Collection Type:: Clean-Voided Midstream Performed By: #### U HCG, URDS, ADDONUAPLUS #### [address] pH (U) 7.0 [pH] Normal 5.0-9.0 [facility] Comment on above: Order Comment: Name Collection Type:: Clean-Voided Midstream Performed By: #### U HCG, URDS, ADDONUAPLUS #### [address] Protein,Urine Negative Normal Negative [facility] Comment on above: Order Comment: Name Collection Type:: Clean-Voided Midstream Performed By: #### U HCG, URDS, ADDONUAPLUS #### [facility] [address] [place] [address] RBC LM.HPF (Urine sed) [#/Area] 0 /[HPF] Normal 0-4 [facility] Comment on above: Order Comment: Name Collection Type:: Clean-Voided Midstream Performed By: #### U HCG, URDS, ADDONUAPLUS #### [address] [address] Specificy [place],Urine 1.009 Normal 1.001-1.030 [facility] Comment on above: Order Comment: Name Collection Type:: Clean-Voided Midstream Performed By: #### U HCG, URDS, ADDONUAPLUS #### [address] Squamous Epithelial Cell,Urine 1-2 Normal 0-2 [facility] Comment on above: Order Comment: Name Collection Type:: Clean-Voided Midstream Performed By: #### U HCG, URDS, ADDONUAPLUS #### [address] Urobilinogen,Urine Normal Normal Normal [facility] Comment on above: Order Comment: Name Collection Type:: Clean-Voided Midstream Performed By: #### U HCG, URDS, ADDONUAPLUS #### [address] WBC,Urine 5-9 High 0-4 [facility] Comment on above: Order Comment: Name Collection Type:: Clean-Voided Midstream Performed By: #### U HCG, URDS, ADDONUAPLUS #### [facility] [address] [place] [address] Drug Screen,Urineon 02-23-20 21 Amphetamine Screen,Urine Negative Normal Negative [facility] Comment on above: Performed By: #### U HCG, URDS, ADDONUAPLUS #### [facility] [address] [place] [address] Barbiturate Screen,Urine Negative Normal Negative [facility] Comment on above: Performed By: #### U HCG, URDS, ADDONUAPLUS #### [facility] [address] [place] [address] [place] Benzodiazepines Screen,Urine Negative Normal Negative [facility] Comment on above: Performed By: #### U HCG, URDS, ADDONUAPLUS #### [facility] [address] [place] [address] Cannabinoid Screen,Urine Positive High Negative [facility] Comment on above: Result Comment: Thes e are unconfirmed results and should not be used for legal purposes. Drug Cut-Off Concentration: AMPH 1000 ng/mL FALLON 200 ng/mL LEONARD 200 ng/mL COCM 300 ng/mL OP 300 ng/mL PCP 25 ng/mL THC 20 ng/mL PERFORMED BY: [place] [address] PATHOLOGIST WEFT STRAIGHTENER MOHINI GOMEZ M.D. Performed By: #### U HCG, URDS, ADDONUAPLUS #### [facility] [address] [place] [address] [place] Cocaine Screen,Urine Negative Normal Negative [facility] Comment on above: Performed By: #### U HCG, URDS, ADDONUAPLUS #### [facility] [address] [place] [address] [place] Opiate Screen,Urine Negative Normal Negative [facility] Comment on above: Performed By: #### U HCG, URDS, ADDONUAPLUS #### [facility] [address] [place] [address] [place] Phencyclidine Screen,Urine Negative Normal Negative [facility] Comment on above: Performed By: #### U HCG, URDS, ADDONUAPLUS #### [facility] [address] [place] [address] Ethyl Alcohol Profileon Ethanol [Mass/Vol] mg/dL Normal [facility] Comment on above: Performed By: #### C BC, CMP, ETOH #### [facility] [address] [place] [address] Percent Ethanol Not performed [facility] Comment on above: Result Comment: PERF ORMED BY: [address] [place] [address] PATHOLOGIST WEFT STRAIGHTENER MOHINI GOMEZ M.D. Performed By: #### C BC, CMP, ETOH #### [facility] [address] [place] [address] HCG,Urineon 02-22-2021 Beta HCG ( test) Ql (U) Negative Normal [facility] Comment on above: Order Comment: Name Collection Type:: Clean-Voided Midstream Result Comment: PERF ORMED BY: [place] [address] PATHOLOGIST WEFT STRAIGHTENER MOHINI GOMEZ M.D. Performed By: #### U HCG, URDS, ADDONUAPLUS #### [address] Discharge Planning Noteon Staff Anesthesiologist Authentication Interface Message Text Social Work Discharge Plan Patient's Contact Information: Address: [address] [place] [address] DISCHARGE PLAN: Home - Other's Disposition Location: as above Transportation to and/or from Appointments: Drives Self Support Person Support Person Aware of Discharge: Yes Support Person's Name: matthieu Number: [phone] Relationship to Patient: mom Prior to discharge, our [facility] pharmacy will deliver your medications to your bedside.: Yes Long Acting Injectables Long Acting Injectables (RUBY): No Discharge Home Health Care: No Psych Medicaid Follow-Up: No Community Follow-up : Yes Community Agency: [facility] Follow-up Date: 12/14/20 Community Provider Follow-up Time: 0430 [facility] Follow-up: No Substance Abuse Follow-up Plan: Refused IM Letters Probate/Mental Health Board Notified: No No follow-ups on file. Pt aware of appointment. Pt called and scheduled in person intake. [place] SONAL Davidson,EXPERIENCE DESIGN DIRECTOR [phone] Normal [facility] Progress Noteson 11-10-2020 Staff Anesthesiologist Authentication Interface Message Text Attestation signed by Ngozi Gallardo MD at 11/10/2020 8:33 PM .Teaching Physician Note: I saw and evaluated the patient. I personally obtained the nunn and critical portions of the history and physical exam. I reviewed the resident's documentation and discussed the patient with the resident. I agree with the resident's medical decision making as documented in the resident's note. Ngozi Gallardo MD 6B INPATIENT - PROGRESS NOTE Amina Johnson 25 year old female Room: B617/02 Admit Date: 11/06/2020 Today's Date: 11/10/2020 Length of stay: 4 day(s) Reason for Admission/ED Presentation: Chief Complaint Patient presents with * Suicidal Ideations Pt tried to kill herself and slit wrists with juke box mechanic. Pt is pink slipped. SUBJECTIVE Pt seen this morning in her room. Pt smiling bright and full affect. Pt states that they slept well and had no difficulty falling asleep or staying asleep. Pt's appetite is unchanged. Pt has been compliant with all medications and reports no adverse effects. Pt denies any depressive symptoms, suicidal thoughts with intent or plan, homicidal thoughts with intent or plan, auditory hallucinations, or visual hallucinations. Pt is hopeful about the future, has plans after discharge, and good social support from friends and family. Collateral Call: Spoke with pt's mother and father yesterday. Both believe pt is at her baseline, state there was a misinterpretation of previous statements she made. Pt's parents believe that she regrets what she did and will not do it again. Pt's mother states pt will be living with her and she will be supporting the pt and watching her closely. Safety plan in place. OBJECTIVE PRN's in last 24 hrs: none Per nursing Following a rather labile/tearful morning, Patient was observed to be full, bright, pleasant, and cooperative this evening, seen laughing and joking with peers as they circled the Unit together. Patient did permit another dressing change, after the Wound Care Consult had assessed her. Patient was reminded to permit the Bacitracin applications as ordered, to keep the wound moist and able to heal more quickly. Patient was also reminded to keep her arms elevated as much as possible, and to apply provided ice bags to the affected areas. Patient's Parents called and had apparently straightened out a misunderstanding which had precipitated Patient's earlier tearful spell. Patient now indicates that she will be discharged tomorrow. VITAL SIGNS Patient Vitals for the past 24 hrs: BP Temp Temp src Pulse Resp 11/10/20 0600 94/46 98.3 ???F (36.8 ???C) Temporal 60 18 Vital sign ranges over the past 24 hours (retrieved 11/10/2020 at 10:25 AM): Tmax (24 hours): 98.3 ???F (36.8 ???C) Pulse Av Min: 60 Max: 60 Systolic (24hrs), Av , Min:94 , Max:94 Diastolic (24hrs), Av, Min:46, Max:46 MAP (mmHg) Av mmHg Min: 57 mmHg Max: 57 mmHg Resp Av Min: 18 Max: 18 No data recorded EKG (Date: 11/06/20) QTc: 455ms LABS Basic Metabolic Panel None WBC/Diff None Hepatic/Biliary/Panc reas None MEDICATIONS SCHEDULED * honey Daily * fluoxetine 40 mg Daily * bacitracin 3x Daily * OLANZapine 5 mg At Bedtime PRN * docusate sodium 100 mg 2x Daily PRN * OLANZapine 10 mg Q6H PRN Or * OLANZapine 10 mg Q6H PRN * trazodone 50 mg At Bedtime PRN * hydrOXYzine 25 mg 3x Daily PRN * acetaminophen 325 mg Q4H PRN * acetaminophen 650 mg Q4H PRN * acetaminophen 1,000 mg Q6H PRN * magnesium hydroxide 30 mL Daily PRN The risks and benefits of the currently prescribed psychotropic medications were reviewed with the patient. MENTAL STATUS EXAM Appearance: 25 year old female painted nails bilateral lacerations on forearms covered by dressing Behavior: calm and cooperative good eye contact smiling pleasent Muscle Tone: no rigidity or tremor noted Level of consciousness: alert Orientation: oriented to time, place and person. Mood: euthymic Affect: congruent, full Speech: clear and normal rate and flow Language: Appropriate Thought Form/Process: logical, organized Thought Content: denies suicidal thoughts or intention, denies homicidal thoughts or intention Perceptual Disturbances: denies auditory hallucinations, denies visual hallucinations Memory: good recent and remote recall Attention/Concentrat ion: sustained Judgement: fair Insight: fair Suicidal Ideations, Intent or Plan: denies Homicidal Ideations, Intent or Plan: denies ASSESSMENT Amina Johnson, 24 year old White female with past history significant for MDD presenting to ED after a suicide attempt cutting her wrists On assessment pt denies any depressive symptoms, suicidal ideation intent or plan. Pt's affect is brigh (more content not included)... Normal [facility] UM Noteon 11-10-2020 Staff Anesthesiologist Authentication Interface Message Text 11/09/2020 Chief Complaint Patient presents with * Suicidal Ideations ? Pt tried to kill herself and slit wrists with juke box mechanic. Pt is pink slipped. ??? SUBJECTIVE Pt seen this morning in her room. Pt states that they slept well and had no difficulty falling asleep or staying asleep. Pt's appetite is unchanged. Pt has been compliant with all medications and reports no adverse effects. Pt becomes tearful when told about her father's safety concerns. Pt denies that she ever told her family she is still contemplating suicide, pt believes that it was all a miscommunication. Pt reports improvement of depressive symptoms, denies any suicidal ideation intent or plan since she has been admitted. Pt states she looks forward to returning to work, will be living with her mother, and plans to visit [place] to ride horses with her friend. Pt states she will take some time off work to rest and recover. ? OBJECTIVE ??? PRN's in last 24 hrs: none ??? Per nursing Patients father Abimael called with concerns relating to the patient. Patients father reported that when she hugged her brother zion trimble she said I'm going to miss you. The father also stated that the patient told her mother the next time it wont be such a mess in regards to her suicide attempt in her vehicle. Father is concerned patient is being superficial in regards to her recent suicide attempt and is concerned she might make an attempt again.? Patient begins this morning by crying loudly after being confronted by Team with a claim from her family (Mother, Father, Uncle) that she had called her Mother last night to say something to the effect that she would again attempt suicide and that this time, It would not be as bloody. ???Patient insists that this is NOT what was said and that like the telephone game played by children, the message became scrambled when communicated from her Mother to her Uncle, to her Father, who then called to tell Staff of same. ???Patient says that she had a great day yesterday, with the birthday visit from her Brother and his girlfriend. ???Patient verbalizes future-oriented goals of camping with her Father, vacationing with family in [place], to ride horses, and eventually returning to work. ???Patient states that she may require FMLA paperwork to take off from work, until her sutures are removed. ???Patient endorses eating and sleeping well, and denies suicidal ideation, homicidal ideation, auditory hallucinations, and visual hallucinations. ??? VITAL SIGNS ??? Patient Vitals for the past 24 hrs: ??? BP Temp Temp src Pulse Resp SpO2 11/09/20 0643 112/43 97.4 ???F (36.3 ???C) Temporal 93 19 97 % ? Vital sign ranges over the past 24 hours (retrieved 11/09/2020 at 1:10 PM): Tmax (24 hours): 97.4 ???F (36.3 ???C) ??? Pulse Av Min: 93 Max: 93 Systolic (24hrs), Av , Min:112 , Max:112 ??? Diastolic (24hrs), Av, Min:43, Max:43 ??? MAP (mmHg) Av mmHg Min: 57 mmHg Max: 57 mmHg Resp Av Min: 19 Max: 19 SpO2 Av % Min: 97 % Max: 97 % ??? EKG (Date: 11/06/20) QTc: 455ms MEDICATIONS ??? SCHEDULED * [START ON 11/10/2020] fluoxetine 40 mg Daily * bacitracin 3x Daily * OLANZapine 5 mg At Bedtime ? PRN * docusate sodium 100 mg 2x Daily PRN * OLANZapine 10 mg Q6H PRN ??? Or * OLANZapine 10 mg Q6H PRN * trazodone 50 mg At Bedtime PRN * hydrOXYzine 25 mg 3x Daily PRN * acetaminophen 325 mg Q4H PRN * acetaminophen 650 mg Q4H PRN * acetaminophen 1,000 mg Q6H PRN * magnesium hydroxide 30 mL Daily PRN ? The risks and benefits of the currently prescribed psychotropic medications were reviewed with the patient. ??? MENTAL STATUS EXAM Appearance: 25 year old female painted nails bilateral lacerations on forearms covered by dressing Behavior: calm and cooperative good eye contact, tearful crying Muscle Tone: no rigidity or tremor noted Level of consciousness: alert Orientation: oriented to time, place and person. Mood: depressed, anxious Affect: congruent Speech: clear and normal rate and flow Language: Appropriate Thought Form/Process: logical, organized Thought Content: denies suicidal thoughts or intention, denies homicidal thoughts or intention Perceptual Disturbances: denies auditory hallucinations, denies visual hallucinations Memory: good recent and remote recall Attention/Concentrat ion: sustained Judgement: fair Insight: fair Suicidal Ideations, Intent or Plan: denies Homicidal Ideations, Intent or Plan: denies ? ASSESSMENT ??? Amina Johnson, 24 year old???White???female ???with past history significant for MDD???presenting to ED after a suicide attempt cutting her wrists ??? On assessment pt reports improvement of depressive symptoms and denies any suicidal ideation intent or plan. Pt is still very tearful and (more content not included)... Normal [facility] Care Plan Noteon 11-09-2020 Staff Anesthesiologist Authentication Interface Message Text Problem: Risk For Suicide: Goal: Ability to disclose and discuss suicidal ideas will improve and be maintained 11/09/2020 1750 by Anthony Mendes RN Outcome: Progressing Note: Patient denies suicidal ideation, passive wish, and desire to self harm. No self-injurious behaviors verbalized or gestured on 6B. Q15 minute safety checks remain ongoing. 11/09/20201056 by Anthony Mendes RN Outcome: Progressing Note: Patient denies suicidal ideation, passive wish, and desire to self harm, stating, I swear to God, I don't want to hurt myself! Problem: Routine Care: Goal: Patient care will be managed and maintained throughout hospital stay per unit specific routine care procedure 11/09/20201749 by Anthony Mendes RN Outcome: Progressing Note: Patient is able to make their needs known to Staff. Patient's needs are addressed as they are presented to Staff, per Unit Standard Operating Procedures. 11/09/20201056 by Anthony Mendes RN Outcome: Progressing Note: Patient is able to make their needs known to Staff. Patient's needs are addressed as they are presented to Staff, per Unit Standard Operating Procedures. Problem: Patient Identified Problem: Goal: Patient identifies problem 11/09/20201749 by Anthony Mendes RN Outcome: Progressing Note: Following a rather labile/tearful morning, Patient was observed to be full, bright, pleasant, and cooperative this evening, seen laughing and joking with peers as they circled the Unit together. Patient did permit another dressing change, after the Wound Care Consult had assessed her. Patient was reminded to permit the Bacitracin applications as ordered, to keep the wound moist and able to heal more quickly. Patient was also reminded to keep her arms elevated as much as possible, and to apply provided ice bags to the affected areas. Patient's Parents called and had apparently straightened out a misunderstanding which had precipitated Patient's earlier tearful spell. Patient now indicates that she will be discharged tomorrow. 11/09/20201056 by Anthony Mendes RN Outcome: Progressing Note: Patient begins this morning by crying loudly after being confronted by Team with a claim from her family (Mother, Father, Uncle) that she had called her Mother last night to say something to the effect that she would again attempt suicide and that this time, It would not be as bloody. Patient insists that this is NOT what was said and that like the telephone game played by children, the message became scrambled when communicated from her Mother to her Uncle, to her Father, who then called to tell Staff of same. Patient says that she had a great day yesterday, with the birthday visit from her Brother and his girlfriend. Patient verbalizes future-oriented goals of camping with her Father, vacationing with family in [place], to ride horses, and eventually returning to work. Patient states that she may require FMLA paperwork to take off from work, until her sutures are removed. Patient endorses eating and sleeping well, and denies suicidal ideation, homicidal ideation, auditory hallucinations, and visual hallucinations. Problem: Coping: Goal: Ability to identify and develop effective coping behavior will improve and/or be maintained 11/09/20201749 by Anthony Mendes RN Outcome: Progressing Note: Education regarding the development of an effective coping plan remains ongoing. 11/09/20201056 by Anthony Mendes RN Outcome: Progressing Note: Education regarding the development of an effective coping plan remains ongoing. Problem: Safety: Goal: Free from injury during hospitalization 11/09/20201749 by Anthony Mnedes RN Outcome: Progressing Note: Patient remains safe and free from falls and injury on 6B, under Assault Precautions. No self-injurious behaviors verbalized or gestured on 6B. Q15 minute safety checks remain ongoing. 11/09/20201056 by Anthony Mendes RN Outcome: Progressing Note: Thus far this shift, Patient remains safe and free from falls and injury on 6B, under Assault Precautions. No self-injurious behaviors verbalized or gestured on 6B, under Assault Precautions. No self-injurious behaviors verbalized or gestured on 6B. Q15 minute safety checks remain ongoing. Problem: Adult Discharge Planning: Goal: Discharge needs of the adult patient will be met 11/09/20201749 by Anthony Mendes RN Outcome: Progressing Note: Discharge planning remains ongoing. 11/09/20201056 by Anthony Mendes RN Outcome: Progressing Note: Patient remains discharge focused and becomes tearful, when she hears that she would not be discharged today. Discharge planning remains ongoing. Problem: Impaired Skin Integrity: Goal: Acheive wound healing without signs and symptoms of infection 11/09/20201749 by Witalis, Anthony, RN Outcome: Progressing Note: Self-inflicted lacerations to Patient's bilateral forearms were as (more content not included)... Normal [facility] Staff Anesthesiologist Authentication Interface Message Text Problem: Risk For Suicide: Goal: Ability to disclose and discuss suicidal ideas will improve and be maintained Outcome: Progressing Note: Patient denies suicidal ideation, passive wish, and desire to self harm, stating, I swear to God, I don't want to hurt myself! Problem: Routine Care: Goal: Patient care will be managed and maintained throughout hospital stay per unit specific routine care procedure Outcome: Progressing Note: Patient is able to make their needs known to Staff. Patient's needs are addressed as they are presented to Staff, per Unit Standard Operating Procedures. Problem: Patient Identified Problem: Goal: Patient identifies problem Outcome: Progressing Note: Patient begins this morning by crying loudly after being confronted by Team with a claim from her family (Mother, Father, Uncle) that she had called her Mother last night to say something to the effect that she would again attempt suicide and that this time, It would not be as bloody. Patient insists that this is NOT what was said and that like the telephone game played by children, the message became scrambled when communicated from her Mother to her Uncle, to her Father, who then called to tell Staff of same. Patient says that she had a great day yesterday, with the birthday visit from her Brother and his girlfriend. Patient verbalizes future-oriented goals of camping with her Father, vacationing with family in [place], to ride horses, and eventually returning to work. Patient states that she may require FMLA paperwork to take off from work, until her sutures are removed. Patient endorses eating and sleeping well, and denies suicidal ideation, homicidal ideation, auditory hallucinations, and visual hallucinations. Problem: Coping: Goal: Ability to identify and develop effective coping behavior will improve and/or be maintained Outcome: Progressing Note: Education regarding the development of an effective coping plan remains ongoing. Problem: Safety: Goal: Free from injury during hospitalization Outcome: Progressing Note: Thus far this shift, Patient remains safe and free from falls and injury on 6B, under Assault Precautions. No self-injurious behaviors verbalized or gestured on 6B, under Assault Precautions. No self-injurious behaviors verbalized or gestured on 6B. Q15 minute safety checks remain ongoing. Problem: Adult Discharge Planning: Goal: Discharge needs of the adult patient will be met Outcome: Progressing Note: Patient remains discharge focused and becomes tearful, when she hears that she would not be discharged today. Discharge planning remains ongoing. Problem: Impaired Skin Integrity: Goal: Acheive wound healing without signs and symptoms of infection Outcome: Progressing Note: Patient declines her dressing change this morning, but adds that she will permit same, later. Normal [facility] Staff Anesthesiologist Authentication Interface Message Text Problem: Routine Care: Goal: Patient care will be managed and maintained throughout hospital stay per unit specific routine care procedure Outcome: Progressing Note: Patient in bed sleeping and in no apparent distress with respirations even and unlabored. Slept restful throughout night. Q 15 min safety checks maintained. Normal [facility] Consultson 11-09-2020 Staff Anesthesiologist Authentication Interface Message Text Wound Ostomy Continence (WOC) Nursing Consult Reason for Exam: consult order placed with a reason of WOC Reason for Consult: surgical wound- Patient has two forearm lacs related to a suicide attempt. RN Assigned to Patient During Consult: Anthony Mendes RN. This RN was at the bedside during the assessment. Assessment/Findings: Patient agreeable to wound care assessment and care. Due to edema, patient's bilateral forearm sutures are no longer approximated. LUE forearm is 50% approximated and RUE is 75% approximated. LUE forearm is with pink, moist, tissue exposed and a small amount of slough present in the base of the distal end of the wound. RUE is with pink, moist tissue. Patient provided instructions on elevating her arms as able to reduce swelling allowing for less tension on the suture sites. Wound care education and instructions provided to patient and Primary RN. Patient verbalized an understanding. Wound Anterior;Right Forearm Laceration (Active) Orientation: Anterior;Right Wound Location: Forearm Wound Types: Laceration Wound Description: ~18cm, self-inflicted laceration (juke box mechanic), closed with 20 sutures Present on Admission?: Present on Transfer to Unit / Floor Ongoing - Patient Being Discharged: Previously Removed / Not Present: Wound Bed Edema;[place];Moist 11/09/20 1500 Surrounding Tissue/Wound Edge Edema 11/09/20 1500 Drainage Scant;Serous 11/09/20 1500 Dressing Other (comment);Telfa (Bacitracin) 11/09/20 1500 Closure Sutures 11/09/20 1500 Wound Anterior;Left Forearm Laceration (Active) Orientation: Anterior;Left Wound Location: Forearm Wound Types: Laceration Wound Description: ~18cm self-inflicted laceration (juke box mechanic), closed with 14 sutures Present on Admission?: Present on Transfer to Unit / Floor Ongoing - Patient Being Discharged: Previously Removed / Not Present: Wound Bed Moist;[place];Slough 11/09/20 1500 Surrounding Tissue/Wound Edge Ecchymosis;Edema 11/09/20 1500 Drainage Scant;Serosanguineou s 11/09/20 1500 Dressing Telfa;Other (comment) (Bacitracin) 11/09/20 1500 Care Provided to Patient Included: Wounds cleansed with soap and water, bacitracin and Telfa applied. [facility] Nurse Recommendation: BUE Forearms-Wash the sites with soap and water, pat dry. Clean wound/area with soap and water and dry. Apply Medihoney to wound base and secure with a dry sterile dressing. Change daily. (Medihoney will maintain moist environment, aid in cleansing wound of debris due to osmotic effects of the sugars in product, and reduce wound pH.) Violeta Watts MSN, RN, CWOCN Swati Lynn BSN, RN [facility] Nurse Normal [facility] Progress Noteson 11-09-2020 Staff Anesthesiologist Authentication Interface Message Text [facility] Daily Notes Subjective: Pt participated in morning group session, topic: Self-care, and afternoon open activities including coloring and talking as a group Objective/Assessment : Pt had full and active participation throughout group session Pt interacted appropriately with peers and staff Pt had no negative behaviors to note at this time Plan: Pt encouraged to continue participating in group activities for the remainder of his/her stay on 6B. Phu Kebede Tracie Normal [facility] [employer] Staff Anesthesiologist Authentication Interface Message Text [facility] [phone]. They are able to accept pt's insurance and will have availability for new patient intake. The Center would like pt to contact tomorrow with her information to arrange initial intake. SW will follow up with pt in the morning. LOIDA Davidson,EXPERIENCE DESIGN DIRECTOR [phone] Normal [facility] [employer] Interface Message Text Wound Care Consult assessed lacerations to Patient's bilateral forearms. Tension along suture line, due to edema at the sight is causing wound edges to become less proximal between sutures. Awaiting new orders. Meanwhile, Patient encouraged to elevate arms whenever possible and Patient will be provided ice packs. Normal [facility] Interface Message Text Attestation signed by Ngozi Gallardo MD at 11/09/2020 1:45 PM .Teaching Physician Note: I saw and evaluated the patient. I personally obtained the nunn and critical portions of the history and physical exam. I reviewed the resident's documentation and discussed the patient with the resident. I agree with the resident's medical decision making as documented in the resident's note. Ngozi Gallardo MD 6B INPATIENT - PROGRESS NOTE Amina Johnson 25 year old female Room: B617/02 Admit Date: 11/06/2020 Today's Date: 11/09/2020 Length of stay: 3 day(s) Reason for Admission/ED Presentation: Chief Complaint Patient presents with * Suicidal Ideations Pt tried to kill herself and slit wrists with juke box mechanic. Pt is pink slipped. SUBJECTIVE Pt seen this morning in her room. Pt states that they slept well and had no difficulty falling asleep or staying asleep. Pt's appetite is unchanged. Pt has been compliant with all medications and reports no adverse effects. Pt becomes tearful when told about her father's safety concerns. Pt denies that she ever told her family she is still contemplating suicide, pt believes that it was all a miscommunication. Pt reports improvement of depressive symptoms, denies any suicidal ideation intent or plan since she has been admitted. Pt states she looks forward to returning to work, will be living with her mother, and plans to visit [place] to ride horses with her friend. Pt states she will take some time off work to rest and recover. OBJECTIVE PRN's in last 24 hrs: none Per nursing Patients father Abimael called with concerns relating to the patient. Patients father reported that when she hugged her brother zion trimble she said I'm going to miss you. The father also stated that the patient told her mother the next time it wont be such a mess in regards to her suicide attempt in her vehicle. Father is concerned patient is being superficial in regards to her recent suicide attempt and is concerned she might make an attempt again. Patient begins this morning by crying loudly after being confronted by Team with a claim from her family (Mother, Father, Uncle) that she had called her Mother last night to say something to the effect that she would again attempt suicide and that this time, It would not be as bloody. Patient insists that this is NOT what was said and that like the telephone game played by children, the message became scrambled when communicated from her Mother to her Uncle, to her Father, who then called to tell Staff of same. Patient says that she had a great day yesterday, with the birthday visit from her Brother and his girlfriend. Patient verbalizes future-oriented goals of camping with her Father, vacationing with family in [place], to ride horses, and eventually returning to work. Patient states that she may require FMLA paperwork to take off from work, until her sutures are removed. Patient endorses eating and sleeping well, and denies suicidal ideation, homicidal ideation, auditory hallucinations, and visual hallucinations. VITAL SIGNS Patient Vitals for the past 24 hrs: BP Temp Temp src Pulse Resp SpO2 11/09/20 0643 112/43 97.4 ???F (36.3 ???C) Temporal 93 19 97 % Vital sign ranges over the past 24 hours (retrieved 11/09/2020 at 1:10 PM): Tmax (24 hours): 97.4 ???F (36.3 ???C) Pulse Av Min: 93 Max: 93 Systolic (24hrs), Av , Min:112 , Max:112 Diastolic (24hrs), Av, Min:43, Max:43 MAP (mmHg) Av mmHg Min: 57 mmHg Max: 57 mmHg Resp Av Min: 19 Max: 19 SpO2 Av % Min: 97 % Max: 97 % EKG (Date: 11/06/20) QTc: 455ms LABS Basic Metabolic Panel None WBC/Diff None Hepatic/Biliary/Panc reas None MEDICATIONS SCHEDULED * [START ON 11/10/2020] fluoxetine 40 mg Daily * bacitracin 3x Daily * OLANZapine 5 mg At Bedtime PRN * docusate sodium 100 mg 2x Daily PRN * OLANZapine 10 mg Q6H PRN Or * OLANZapine 10 mg Q6H PRN * trazodone 50 mg At Bedtime PRN * hydrOXYzine 25 mg 3x Daily PRN * acetaminophen 325 mg Q4H PRN * acetaminophen 650 mg Q4H PRN * acetaminophen 1,000 mg Q6H PRN * magnesium hydroxide 30 mL Daily PRN The risks and benefits of the currently prescribed psychotropic medications were reviewed with the patient. MENTAL STATUS EXAM Appearance: 25 year old female painted nails bilateral lacerations on forearms covered by dressing Behavior: calm and cooperative good eye contact, tearful crying Muscle Tone: no rigidity or tremor noted Level of consciousness: alert Orientation: oriented to time, place and person. Mood: depressed, anxious Affect: congruent Speech: clear and normal rate and flow Language: Appropriate Thought Form/Process: logical, organized T (more content not included)... Normal [facility] Staff Anesthesiologist Authentication Interface Message Text Patient declined her ordered Bacitracin/dressing change, preferring to allow her wounds to breathe a little. However, creamy yellow sough can be seen about the wound bed of the distal portion of the laceration to her (L) forearm. Patient did permit the application of a loosely dressed, dry, sterile dressing to keep the are clean. Normal [facility] [employer] Authentication Interface Message Text .Teaching Physician Note: I saw and evaluated the patient. I personally obtained the nunn and critical portions of the history and physical exam. I reviewed the resident's documentation and discussed the patient with the resident. I agree with the resident's medical decision making as documented in the resident's note. Ngozi Gallardo MD 25 yo female with a 6 month hx of prozac. 20 mg. Seriouis suicide attempt vertical bilateral wrist slashing Was depressed over the fact tthat boyfriend left her and made very derogatory statements.. On exam very tearful, irritable Does not necessarily understand the repercussions of her act. A/p MDD BRITTANY Increase prozac to 40 mg.Ngozi Gallardo MD Normal [facility] UM Noteon 11-09-2020 Staff Anesthesiologist Authentication Interface Message Text To ED 11/06/2020 @ 0246 Admit to inpatient 11/06/2020 @ 1304 To ED: Chief Complaint Patient presents with * Suicidal Ideations ? Pt tried to kill herself and slit wrists with juke box mechanic. Pt is pink slipped. The history is provided by the Patient. Amina Johnson is a 24 year old female presenting to the ED for CAT2 trauma s/p suicide attempt. Earlier this evening, patient cut both of her forearms with a juke box mechanic in an attempt to kill herself. She was taken to another hospital where they were concerned about repairing the wounds and the amount of lidocaine it would take. They transferred her here to see Trauma surgery. Patient endorses pain in her bilateral forearms. It is constant described as severe. Denies pain or injury elsewhere. Reports she takes Prozac. She reports she has a previous suicide attempt when she was 21 for which she was hospitalized. Unknown last Tdap. Review of Systems Constitutional: Negative for fever. HENT: Negative for nosebleeds. Eyes: Negative for pain. Respiratory: Negative for shortness of breath. Cardiovascular: Negative for chest pain and leg swelling. Gastrointestinal: Negative for abdominal pain and vomiting. Genitourinary: Negative for flank pain. Musculoskeletal: Negative for arthralgias and myalgias. Skin: Positive for wound. Neurological: Negative for syncope. Psychiatric/Behavior al: Positive for self-injury and suicidal ideas. Negative for confusion. BP 115/70 Pulse (!) 106 Temp 98.3 ???F (36.8 ???C) (Oral) Resp 17 SpO2 98% TRAUMA EXAM: Primary Survey Airway Intact and Talking Breathing Spontaneous, Bilateral breath sounds and Not labored Circulation Palpable bilateral radial, Palpable bilateral DP and Palpable bilateral PT Disability / Spine precautions GCS Score: Eye Openin Verbal Response: 5 Motor Response: 6 ? Secondary Survey Constitutional Nursing triage notes reviewed, Vital signs reviewed, Alert, Awake and No acute distress Head Atraumatic, Midface stable, No Cephalohematoma and No Lacerations noted Eye Pupils equal round and reactive to light ENT Oropharynx clear, no lacerations, No nasal septal hematoma, No hemotympanum or otorrhea and Midface stable Cervical spine / Neck No cervical spine bony tenderness, crepitus, or stepoff and Normal range of motion Lungs Clear to auscultation and Breath sounds equal and symmetric Cardiac Regular rate and rhythm and No murmurs Abdomen Soft, Nondistended, Nontender and No rebound Neuro Alert normally oriented Moves all 4 extremities symmetrically and equally to command Sensation intact Extremities LUE: large wound on volar aspect of forearm, about 7x5cm, gaping, actively bleeding from small arterial manager architecture RUE: large wound on volar aspect of forearm, about 10x5cm, gaping, active venous bleeding Skin wounds as detailed above Psych Depressed and Suicidal Interpretation of Results: CBC is not concerning for clinically significant anemia, or thrombocytopenia. +leukocytosis c/w trauma EtOH elevated Type and screen A+ BMP is not concerning for clinically significant electrolyte abnormality or MALIK. Lacate: slightly elevatedat 2.8 c/w trauma ??? XR forearm left: 1. ???No left forearm acute fracture. 2. ???Soft tissue irregularity along the volar forearm, consistent with provided history of laceration. No evidence of radiopaque foreign body within the soft tissues.. ??? XR forearm right: 1. ???No right forearm acute fracture. 2. ???Soft tissue swelling/injury in the volar forearm. No retained radiopaque foreign body ??? Medical Decision Makin24 year old female presenting to the ED for CAT2 trauma s/p suicide attempt. On arrival, patient hemodynamically stable, afebrile and in no acute distress. She had gaping lacerations on her bilateral forearms with active bleeding. She had no other external evidence of trauma. Since she was actively bleeding, sutures were placed in the Trauma [place] to tamponade the bleeding. X-rays without evidence of foreign body, fracture/dislocation over area of lacerations. Lacerations were repaired per trauma team. Labs revealed slightly elevated lactate and leukocytosis consistent with trauma. Labs are otherwise unremarkable as detailed above. Patient is medically clear. Psychiatry was consulted and came to evaluate the patient. They felt that she would likely need inpatient admission but requested COVID and urine before disposition. Psych consult: IX. FAMILY AND SOCIAL HISTORY: Born in: [place]. Raised by biological parents. Highest EDUCATION: High school graduate. History of ABUSE or exposure to TRAUMATIC event / service: No.. Current RESIDENCY: lives alone. Current social SUPPORT: no one. LEGAL history: denied. FAMILY psychiatric AND suicide history: No. ? X. MENTAL STATUS EXAMINATION: Appearance AND attitude: psychomotor retardation. Mood: depressed. Affect: congruent (more content not included)... Normal [facility] Care Plan Noteon 2020 Staff Anesthesiologist Authentication Interface Message Text Problem: Routine Care: Goal: Patient care will be managed and maintained throughout hospital stay per unit specific routine care procedure Note: Pt care managed and maintained per unit 6b protocol. Problem: Patient Identified Problem: Goal: Patient identifies problem Note: Pt calm and cooperative throughout interactions. Described mood as feeling better. Denies SI/HI/AVH. Hoping for d/c tomorrow. Reports good sleep and appetite. Requested and received stool softener. Pt has been visible out in the lounge area watching TV and socializing with peers. Compliant with scheduled medications. No behavioral issues noted. Problem: Safety: Goal: Free from injury during hospitalization Note: Pt remains safe and free from harm. Purposeful hourly rounding remains ongoing. Problem: Adult Discharge Planning: Goal: Discharge needs of the adult patient will be met Note: Discharge planning and medication education remains ongoing. Continue to encourage compliance with medications and treatment plan. Normal [facility] Staff Anesthesiologist Authentication Interface Message Text Problem: Risk For Suicide: Goal: Ability to disclose and discuss suicidal ideas will improve and be maintained Outcome: Progressing Note: Patient denies suicidal ideation, passive wish, and desire to self-harm. Q6 minute safety checks remain ongoing. Problem: Routine Care: Goal: Patient care will be managed and maintained throughout hospital stay per unit specific routine care procedure Outcome: Progressing Note: Patient is able to make their needs known to Staff. Patient's needs are addressed as they are presented to Staff, per Unit Standard Operating Procedures. Problem: Patient Identified Problem: Goal: Patient identifies problem Outcome: Progressing Note: Patient appears more full and bright this morning, laughing and joking with this typewriter ribbon winder despite being on 6B for her birthday. Patient endorses eating and sleeping well, and denies suicidal ideation, homicidal ideation, auditory hallucinations, and visual hallucinations. Patient showered, then per orders, self-inflicted wounds to Patient's bilateral forearms were dressed with non-stick gauze, after application of Bacitracin. Wound edges of the laceration to Patient's (R) forearm now appear not to be between sutures. The wound edges of the laceration to Patient's (L) forearm remain between sutures. The wound bed of this laceration, remains pink and moist, but now shows some evidence of slough in the open areas between sutures. Surrounding tissue of each laceration appears somewhat edematous, with some evidence of ecchymosis about the wound to the (L) forearm. No erythema, heat, or point tenderness noted, but scant serosanguinous drainage visible upon dressings. Dr. Moreno assessed the wounds, while uncovered. Awaiting further orders. Will continue to monitor. Problem: Coping: Goal: Ability to identify and develop effective coping behavior will improve and/or be maintained Outcome: Progressing Note: Education regarding the development of an effective coping plan remains ongoing. Problem: Safety: Goal: Free from injury during hospitalization Outcome: Progressing Note: Patient remains safe and free from falls and injury on 6B, under Escape, Assault, and Moderate Suicide Precautions. No self-injurious behaviors verbalized or gestured on 6B. Q6 minute safety checks remain ongoing. Problem: Adult Discharge Planning: Goal: Discharge needs of the adult patient will be met Outcome: Progressing Note: Discharge planning remains ongoing. Problem: Impaired Skin Integrity: Goal: Acheive wound healing without signs and symptoms of infection Outcome: Progressing Note: Patient showered, then per orders, self-inflicted wounds to Patient's bilateral forearms were dressed with non-stick gauze, after application of Bacitracin. Wound edges of the laceration to Patient's (R) forearm now appear not to be between sutures. The wound edges of the laceration to Patient's (L) forearm remain between sutures. The wound bed of this laceration, remains pink and moist, but now shows some evidence of slough in the open areas between sutures. Surrounding tissue of each laceration appears somewhat edematous, with some evidence of ecchymosis about the wound to the (L) forearm. No erythema, heat, or point tenderness noted. Dr. Moreno assessed the wounds, while uncovered. Awaiting further orders. Will continue to monitor. Normal [facility] Staff Anesthesiologist Authentication Interface Message Text The patient was resting in bed during the night. Respirations were even and nonlabored. And the patient appeared to have slept the shift without disturbance. Patient remains on suicide precautions and 6 minute checks. Normal [facility] Progress Noteson 2020 Staff Anesthesiologist Authentication Interface Message Text Patients father Abimael called with concerns relating to the patient. Patients father reported that when she hugged her brother zion trimble she said I'm going to miss you. The father also stated that the patient told her mother the next time it wont be such a mess in regards to her suicide attempt in her vehicle. Father is concerned patient is being superficial in regards to her recent suicide attempt and is concerned she might make an attempt again. Normal [facility] Interface Message Text Attestation signed by Jonathan Licona MD at 2020 9:42 PM Teaching Physician Note: I saw and evaluated the patient. I personally obtained the nunn and critical portions of the history and physical exam. I reviewed the resident's documentation and discussed the patient with the resident. I agree with the resident's medical decision making as documented in the resident's note. Jonathan Licona MD 6B INPATIENT - PROGRESS NOTE Amina Johnson 25 year old female Room: B617/02 Admit Date: 11/06/2020 Today's Date: 2020 Length of stay: 2 day(s) Reason for Admission/ED Presentation: Chief Complaint Patient presents with * Suicidal Ideations Pt tried to kill herself and slit wrists with juke box mechanic. Pt is pink slipped. SUBJECTIVE Pt seen this morning in her room. Pt is happy that it is her birthday today but wishes she was at home celebrating with her family. Pt states her brother will be visiting today and she is looking forward to that. Pt states her family is a strong social support and that she will be living with them after discharge. Pt is hopeful about the future. Pt states she has a plan to get back to work. Pt states her depression has improved and she feels less anxious. Pt denies any suicidal thoughts with intent or plan, homicidal thoughts with intent or plan, auditory hallucinations, or visual hallucinations. OBJECTIVE PRN's in last 24 hrs: none Per nursing Patient appears more full and bright this morning, laughing and joking with this typewriter ribbon winder despite being on 6B for her birthday. Patient endorses eating and sleeping well, and denies suicidal ideation, homicidal ideation, auditory hallucinations, and visual hallucinations. Patient showered, then per orders, self-inflicted wounds to Patient's bilateral forearms were dressed with non-stick gauze, after application of Bacitracin. Wound edges of the laceration to Patient's (R) forearm now appear not to be between sutures. The wound edges of the laceration to Patient's (L) forearm remain between sutures. The wound bed of this laceration, remains pink and moist, but now shows some evidence of slough in the open areas between sutures. Surrounding tissue of each laceration appears somewhat edematous, with some evidence of ecchymosis about the wound to the (L) forearm. No erythema, heat, or point tenderness noted, but scant serosanguinous drainage visible upon dressings. Dr. Moreno assessed the wounds, while uncovered. Awaiting further orders. Will continue to monitor. VITAL SIGNS Patient Vitals for the past 24 hrs: BP Temp Temp src Pulse Resp SpO2 O2 Device 11/08/20 0612 98/40 97 ???F (36.1 ???C) Temporal 74 19 96 % Room air Vital sign ranges over the past 24 hours (retrieved 2020 at 9:03 AM): Tmax (24 hours): 97 ???F (36.1 ???C) Pulse Av Min: 74 Max: 74 Systolic (24hrs), Av , Min:98 , Max:98 Diastolic (24hrs), Av, Min:40, Max:40 MAP (mmHg) Av mmHg Min: 53 mmHg Max: 53 mmHg Resp Av Min: 19 Max: 19 SpO2 Av % Min: 96 % Max: 96 % EKG (Date: 11/06/20) QTc: 455ms LABS Basic Metabolic Panel Na K Cl CO2 Gap Glu BUN Cr Ca Mg PO4 11/06/20 0257 143 3.9 110 21 16 111 7 0.67 8.6 CBC/PT/INR WBC RBC Hgb Hct MCV RDW Plt PT aPTT INR 11/06/20 0257 27 11/06/20 0257 1.10 11/06/20 0257 16.6 4.16 11.9 36.3 87 14.3 440 WBC/Diff None Hepatic/Biliary/Panc reas T Prot Albumin D Bili T Bili Alk Phos ALT AST Amylase Lipase 11/06/20 0257 6.6 3.9 0.10 0.3 62 17 23 MEDICATIONS SCHEDULED * bacitracin 3x Daily * OLANZapine 5 mg At Bedtime * fluoxetine 20 mg Daily PRN * OLANZapine 10 mg Q6H PRN Or * OLANZapine 10 mg Q6H PRN * trazodone 50 mg At Bedtime PRN * hydrOXYzine 25 mg 3x Daily PRN * acetaminophen 325 mg Q4H PRN * acetaminophen 650 mg Q4H PRN * acetaminophen 1,000 mg Q6H PRN * magnesium hydroxide 30 mL Daily PRN The risks and benefits of the currently prescribed psychotropic medications were reviewed with the patient. MENTAL STATUS EXAM Appearance: 25 year old female in hospital gown bilateral lacerations covered with dressings on forearms Behavior: calm and cooperative good eye contact Muscle Tone: no rigidity or tremor noted Level of consciousness: alert Orientation: oriented to time, place and person. Mood: feels better Affect: congruent, full, bright Speech: clear and normal rate and flow Language: Appropriate Thought Form/Process: logical, organized Thought Content: denies suicidal thoughts or intention, denies homicidal thoughts or intention Perceptual Disturbances: denies auditory hallucinations, denies visual hallucinations Memory: good recent and remote recall Attention/Concentrat ion: sustained Judgement: fair Insight: fair (more content not included)... Normal [facility] Care Plan Noteon 11-07-2020 Staff Anesthesiologist Authentication Interface Message Text Problem: Risk For Suicide: Goal: Ability to disclose and discuss suicidal ideas will improve and be maintained Note: Patient does not endorse thoughts of wanting to harm themselves at this time. Patient is maintained on moderate risk suicide precautions and Q6 minute checks for safety. Problem: Patient Identified Problem: Goal: Patient identifies problem Note: Patient is observed out on the division however was seclusive to self. When encouraged to go to group, patient stated They're boring. Patient denies suicidal and homicidal Ideation. Patient does not endorse auditory or visual hallucinations. Behavior is calm, cooperative and in control. Problem: Safety: Goal: Free from injury during hospitalization Note: Patient is free from injury during this admision at this time. Patient is maintained on escape, assault and moderate risk suicide precautions with Q6 minute checks for safety. Normal [facility] Staff Anesthesiologist Authentication Interface Message Text Problem: Risk For Suicide: Goal: Ability to disclose and discuss suicidal ideas will improve and be maintained Outcome: Progressing Note: Patient denies suicidal ideation, Passive wish, and desire to self harm. No self-injurious behaviors verbalized or gestured on 6B. Q6 minute safety checks remain ongoing. Problem: Routine Care: Goal: Patient care will be managed and maintained throughout hospital stay per unit specific routine care procedure Outcome: Progressing Note: Patient is able to make their needs known to Staff. Patient's needs are addressed as they are presented to Staff, per Unit Standard Operating Procedures. Problem: Patient Identified Problem: Goal: Patient identifies problem Outcome: Progressing Note: Patient appears flat initially, but brightens upon approach. Patient endorses eating and sleeping well, and denies suicidal ideation, homicidal ideation, auditory hallucinations, and visual hallucinations. At Noon, Patient permitted a dressing change, application of Bacitracin, and assessment of the self inflicted wounds to her bilateral forearms. Right, mid forearm laceration, running midline, wrist to AC, is closed by 20 sutures. The wound edges appear well approximated and the wound appears to be healing well, with no clinical signs/symptoms of infection. The wound to Patient's Left, mid forearm, running midline, wrist to AC, is closed by 14 sutures. The edges of this wound are not well approximated and appear to be dehisced, but Patient states that the wound has appeared similar, since the initial suturing. Wound bed appears pink and moist, with scant amount of serosanguinous drainage. Ecchymosis is apparent in surrounding tissues. Dr. Moreno informed. Patient was medicated with Tylenol for pain (see MAR). Otherwise, no clinical signs/symptoms of infection are obvious. Patient does not express regret at the attempt and admits that the intent was to end her life. However, Patient does state that she will never do this again, and will likewise, never become involved in such a relationship again. Problem: Coping: Goal: Ability to identify and develop effective coping behavior will improve and/or be maintained Outcome: Not Progressing Note: Patient was unable to verbalize any effective coping skills at present. Education regarding the development of an effective coping plan remains ongoing. Problem: Safety: Goal: Free from injury during hospitalization Outcome: Progressing Note: Thus far this shift, Patient remains safe and free from falls and injury on 6B, under Escape, Assault, and Moderate Suicide Precautions. No self-injurious behaviors verbalized or gestured on 6B. Q6 minute safety checks remain ongoing. Problem: Adult Discharge Planning: Goal: Discharge needs of the adult patient will be met Outcome: Progressing Note: Patient hopes for a speedy discharge. Problem: Impaired Skin Integrity: Goal: Acheive wound healing without signs and symptoms of infection Outcome: Progressing Note: Lacerations to Patient's bilateral forearms appear to be healing, with the left one appearing to be dehisced. Dr. Moreno informed. Normal [facility] Staff Anesthesiologist Authentication Interface Message Text Problem: Routine Care: Goal: Patient care will be managed and maintained throughout hospital stay per unit specific routine care procedure Outcome: Progressing Note: Patient in room resting in bed and in no apparent distress with respirations even and unlabored. Slept fairly restful throughout night. No voiced suicidal ideation this shift. Q 6 minute safety checks maintained for suicide precautions. Normal [facility] Progress Noteson 11-07-2020 Staff Anesthesiologist Authentication Interface Message Text Attestation signed by Jonahtan Licona MD at 11/07/2020 4:54 PM Teaching Physician Note: I saw and evaluated the patient. I personally obtained the nunn and critical portions of the history and physical exam. I reviewed the resident's documentation and discussed the patient with the resident. I agree with the resident's medical decision making as documented in the resident's note. Jonathan Licona MD 6B INPATIENT - PROGRESS NOTE Amina Johnson 24 year old female Room: B617/02 Admit Date: 11/06/2020 Today's Date: 11/07/2020 Length of stay: 1 day(s) Reason for Admission/ED Presentation: Chief Complaint Patient presents with * Suicidal Ideations Pt tried to kill herself and slit wrists with juke box mechanic. Pt is pink slipped. SUBJECTIVE Pt was seen this morning. Pt states that they slept well and had no difficulty falling asleep or staying asleep. Pt's appetite is unchanged. Pt has been compliant with all medications and reports no adverse effects. Pt states Zyprexa has helped her fall asleep. Pt reports her depressive mood has improved pt denies any current suicidal ideation, intent or plan. Pt states she regrets her suicide attempt but that a part of her also wishes that she succeeded. OBJECTIVE PRN's in last 24 hrs: none Per nursing : Patient appears flat initially, but brightens upon approach. Patient endorses eating and sleeping well, and denies suicidal ideation, homicidal ideation, auditory hallucinations, and visual hallucinations. At Noon, Patient permitted a dressing change, application of Bacitracin, and assessment of the self inflicted wounds to her bilateral forearms. Right, mid forearm laceration, running midline, wrist to AC, is closed by 20 sutures. The wound edges appear well approximated and the wound appears to be healing well, with no clinical signs/symptoms of infection. The wound to Patient's Left, mid forearm, running midline, wrist to AC, is closed by 14 sutures. The edges of this wound are not well approximated and appear to be dehisced, but Patient states that the wound has appeared similar, since the initial suturing. Wound bed appears pink and moist, with scant amount of serosanguinous drainage. Ecchymosis is apparent in surrounding tissues. Dr. Moreno informed. Patient was medicated with Tylenol for pain (see MAR). Otherwise, no clinical signs/symptoms of infection are obvious. Patient does not express regret at the attempt and admits that the intent was to end her life. However, Patient does state that she will never do this again, and will likewise, never become involved in such a relationship again. VITAL SIGNS Patient Vitals for the past 24 hrs: BP Temp Temp src Pulse Resp SpO2 O2 Device 11/07/20 0659 82/40 97.6 ???F (36.4 ???C) Temporal 63 18 100 % -- 11/06/20 1438 103/54 97.6 ???F (36.4 ???C) Temporal 87 18 99 % Room air Vital sign ranges over the past 24 hours (retrieved 11/07/2020 at 12:36 PM): Tmax (24 hours): 97.6 ???F (36.4 ???C) Pulse Av Min: 63 Max: 87 Systolic (24hrs), Av , Min:82 , Max:103 Diastolic (24hrs), Av, Min:40, Max:54 MAP (mmHg) Av mmHg Min: 51 mmHg Max: 51 mmHg Resp Av Min: 18 Max: 18 SpO2 Av.5 % Min: 99 % Max: 100 % EKG (Date: 11/06/20) QTc: 455ms LABS Basic Metabolic Panel Na K Cl CO2 Gap Glu BUN Cr Ca Mg PO4 11/06/20256 143 3.9 110 21 16 111 7 0.67 8.6 CBC/PT/INR WBC RBC Hgb Hct MCV RDW Plt PT aPTT INR 11/06/20 0257 27 11/06/20 0257 1.10 11/06/20256 16.6 4.16 11.9 36.3 87 14.3 440 WBC/Diff None Hepatic/Biliary/Panc reas T Prot Albumin D Bili T Bili Alk Phos ALT AST Amylase Lipase 11/06/20256 6.6 3.9 0.10 0.3 62 17 23 MEDICATIONS SCHEDULED * bacitracin 3x Daily * OLANZapine 5 mg At Bedtime * fluoxetine 20 mg Daily PRN * ketorolac 15 mg Q8H PRN * OLANZapine 10 mg Q6H PRN Or * OLANZapine 10 mg Q6H PRN * trazodone 50 mg At Bedtime PRN * hydrOXYzine 25 mg 3x Daily PRN * acetaminophen 325 mg Q4H PRN * acetaminophen 650 mg Q4H PRN * acetaminophen 1,000 mg Q6H PRN * magnesium hydroxide 30 mL Daily PRN The risks and benefits of the currently prescribed psychotropic medications were reviewed with the patient. MENTAL STATUS EXAM Appearance: 24 year old female with laceration on bilateral forearms nails painted Behavior: calm and cooperative good eye contact Muscle Tone: no rigidity or tremor noted Level of consciousness: alert Orientation: oriented to time, place and person. Mood: depressed Affect: congruent, constricted Speech: clear and normal rate and flow Language: Appropriate Thought Form/Process: logical, organized Thought Content: denies current suicidal thoughts or intention, denies homicidal thoughts or intention Perceptual Disturbances: denies au (more content not included)... Normal [facility] BASIC METABOLIC PANELon 10-20 Anion gap [Moles/Vol] 16 mmol/L High - [facility] Comment on above: Performed By: #### C RP, HEPATIC, TSH HS, HCV, syphilis with confirmation, VITD25, VITB12, CH8, HDL, ANTI-HBS, CORE, ETOH #### [facility] [address] [place] [address], [id number] Calcium [Mass/Vol] 8.6 mg/dL Normal 8.4-10.4 [facility] Comment on above: Performed By: #### C RP, HEPATIC, TSH HS, HCV, syphilis with confirmation, VITD25, VITB12, CH8, HDL, ANTI-HBS, CORE, ETOH #### [facility] [address] [place] [address], Chloride [Moles/Vol] 110 mmol/L Normal 97-111 [facility] Comment on above: Performed By: #### C RP, HEPATIC, TSH HS, HCV, syphilis with confirmation, VITD25, VITB12, CH8, HDL, ANTI-HBS, CORE, ETOH #### [facility] [address] [place] [address], CO2 [Moles/Vol] 21 mmol/L Normal 21-30 [facility] Comment on above: Performed By: #### C RP, HEPATIC, TSH HS, HCV, syphilis with confirmation, VITD25, VITB12, CH8, HDL, ANTI-HBS, CORE, ETOH #### [facility] [address] [place] [address], Creatinine [Mass/Vol] 0.67 mg/dL Normal 0.50-1.10 [facility] Comment on above: Performed By: #### C RP, HEPATIC, TSH HS, HCV, syphilis with confirmation, VITD25, VITB12, CH8, HDL, ANTI-HBS, CORE, ETOH #### [facility] [address] [place] [address], ESTIMATED GFR (CKD-EPI) 125 mL/min/1.73sqm Normal >=60 [facility] Comment on above: Performed By: #### C RP, HEPATIC, TSH HS, HCV, syphilis with confirmation, VITD25, VITB12, CH8, HDL, ANTI-HBS, CORE, ETOH #### [facility] [address] [place] [address], Glucose [Mass/Vol] 111 mg/dL High 68-110 [facility] Comment on above: Performed By: #### C RP, HEPATIC, TSH HS, HCV, syphilis with confirmation, VITD25, VITB12, CH8, HDL, ANTI-HBS, CORE, ETOH #### [facility] [address] [place], [place], Potassium [Moles/Vol] 3.9 mmol/L Normal 3.3-5.3 [facility] Comment on above: Performed By: #### C RP, HEPATIC, TSH HS, HCV, syphilis with confirmation, VITD25, VITB12, CH8, HDL, ANTI-HBS, CORE, ETOH #### [facility] [address] [place] [address], Sodium [Moles/Vol] 143 mmol/L Normal 135-148 [facility] Comment on above: Performed By: #### C RP, HEPATIC, TSH HS, HCV, syphilis with confirmation, VITD25, VITB12, CH8, HDL, ANTI-HBS, CORE, ETOH #### [facility] [address] [place], [place], Urea nitrogen [Mass/Vol] 7 mg/dL Low 8-22 [facility] Comment on above: Performed By: #### C RP, HEPATIC, TSH HS, HCV, syphilis with confirmation, VITD25, VITB12, CH8, HDL, ANTI-HBS, CORE, ETOH #### [facility] [address] [place] [address], C-REACTIVE PROTEINon 021 CRP [Mass/Vol] mg/L Normal <0.8 [facility] Comment on above: Performed By: #### C RP, HEPATIC, TSH HS, HCV, syphilis with confirmation, VITD25, VITB12, CH8, HDL, ANTI-HBS, CORE, ETOH ####[facility] [id number] [place], [place], CBC WITH DIFFERENTIALon 10-20 Basophils (Bld) [#/Vol] 0.11 10*3/uL Normal 0.00-0.20 [facility] Comment on above: Performed By: #### L ACT #### [facility] [address] [place], [place], Basophils/100 WBC (Bld) 0.7 % Normal <=1.9 [facility] Comment on above: Performed By: #### L ACT #### [facility] [address] [place], [place], Eosinophils (Bld) [#/Vol] 0.03 10*3/uL Normal 0.00-0.70 [facility] Comment on above: Performed By: #### L ACT #### [facility] [address] [place], [place], Eosinophils/100 WBC (Bld) 0.2 % Normal 0.1-4.0 [facility] Comment on above: Performed By: #### L ACT #### [facility] [address] [place], [place], Erythrocyte distribution width (RBC) [Ratio] 14.3 % Normal 11.5-14.5 [facility] Comment on above: Performed By: #### L ACT #### [facility] [address] [place], [place], Hematocrit (Bld) [Volume fraction] 36.3 % Normal 36.0-46.0 [facility] Comment on above: Performed By: #### L ACT #### [facility] [address] [place], [place], Hemoglobin (Bld) [Mass/Vol] 11.9 g/dL Low 12.0-15.0 [facility] Comment on above: Performed By: #### L ACT #### [facility] [address] [place], [place], Lymphocytes (Bld) [#/Vol] 3.52 10*3/uL Normal 1.00-4.80 [facility] Comment on above: Performed By: #### L ACT #### [facility] [address] [place], [place], Lymphocytes/100 WBC (Bld) 21.2 % Low 24.0-44.0 [facility] Comment on above: Performed By: #### L ACT #### [facility] [address] [place], [place], MCH (RBC) [Entitic mass] 28.5 pg Normal 26.0-34.0 [facility] Comment on above: Performed By: #### L ACT #### [facility] [address] [place] [address], MCHC (RBC) [Mass/Vol] 32.7 g/dL Normal 32.0-35.9 [facility] Comment on above: Performed By: #### L ACT #### [facility] [address] [place] [address], MCV (RBC) [Entitic vol] 87 fL Normal 80-100 [facility] Comment on above: Performed By: #### L ACT #### [facility] [address] [place] [address], MONOCYTE DISTRIBUTION WIDTH 17 Normal <=20 [facility] Comment on above: Performed By: #### L ACT #### [facility] [address] [place] [address], Monocytes (Bld) [#/Vol] 0.88 10*3/uL Normal 0.20-1.00 [facility] Comment on above: Performed By: #### L ACT #### [facility] [address] [place] [address], Monocytes/100 WBC (Bld) 5.3 % Normal 2.0-11.0 [facility] Comment on above: Performed By: #### L ACT #### [facility] [address] [place] [address], Neutrophils (Bld) [#/Vol] 12.06 10*3/uL High 1.50-8.00 [facility] Comment on above: Performed By: #### L ACT #### [facility] [address] [place] [address], Neutrophils/100 WBC (Bld) 72.7 % Normal 31.0-76.0 [facility] Comment on above: Performed By: #### L ACT #### [facility] [address] [place] [address], Platelet mean volume (Bld) [Entitic vol] 7.8 fL Normal 7.5-11.2 [facility] Comment on above: Performed By: #### L ACT #### [facility] [address] [place], [place], Platelets (Bld) [#/Vol] 440 10*3/uL High 150-400 [facility] Comment on above: Performed By: #### L ACT #### [facility] [address] [place], [place], RBC (Bld) [#/Vol] 4.16 10*6/uL Normal 4.00-5.20 [facility] Comment on above: Performed By: #### L ACT #### [facility] [address] [place], [place], WBC (Bld) [#/Vol] 16.6 10*3/uL High 4.5-11.5 [facility] Comment on above: Performed By: #### L ACT #### [facility] [address] [place], [place], Care Plan Noteon 11-06-2020 Staff Anesthesiologist Authentication Interface Message Text Problem: Routine Care: Goal: Patient care will be managed and maintained throughout hospital stay per unit specific routine care procedure Outcome: Not Progressing Note: Pt care managed via unit protocol and 6 min safety checks Problem: Patient Identified Problem: Goal: Patient identifies problem Outcome: Not Progressing Note: Pt presents as depressed Says she doesn't want to be here Lacks insight into needing hospitalization Good eye contact and polite with staff No behavior issues as of this note Denies SI HI and AVH Problem: Impaired Skin Integrity: Goal: Acheive wound healing without signs and symptoms of infection Outcome: Not Progressing Note: Pt with scant bleeding, showered, no signs of infection but swelling at sites of bilateral forearms present as expected, will monitor per protocol Problem: Risk For Suicide: Goal: Ability to disclose and discuss suicidal ideas will improve and be maintained Outcome: Progressing Note: Denies SI [address] Normal [facility] Consultson 11-06-2020 Staff Anesthesiologist Authentication Interface Message Text PSYCHIATRY MENTAL HEALTH ASSESSMENT - ADULT PSYCHIATRY Appointment start time: 5:41 AM Duration of visit: 30 minutes. I. IDENTIFICATION: Amina Johnson is a 24 year old White female. She is single. Occupation: employed. Patient seen alone. II. HISTORY OF PRESENT ILLNESS: Patient with a history of HISTORY OF: depressive disorder. Brought / Referred by self for depressive symptoms, suicidal thoughts and suicidal attempt. Stressors / Circumstances: relationship problems. Per ED's note Chief Complaint Patient presents with * Suicidal Ideations ? Pt tried to kill herself and slit wrists with juke box mechanic. Pt is pink slipped. ??? Wood Buffer: not needed - patient preferred language is Kyrgyz. ??? The history is provided by the Patient. Amina Johnson is a 24 year old female presenting to the ED for CAT2 trauma s/p suicide attempt. Earlier this evening, patient cut both of her forearms with a juke box mechanic in an attempt to kill herself. She was taken to another hospital where they were concerned about repairing the wounds and the amount of lidocaine with take. They transferred here to see Trauma surgery. Patient endorses pain in her bilateral forearms it is constant described as severe. Denies pain or injury elsewhere. Reports he takes Prozac. She reports she has a previous suicide attempt when she was 21 for which she was hospitalized. Unknown last Tdap. Psychiatric/Behavior al: Positive for self-injury and suicidal ideas. Negative for confusion. ??? Per ED Psychiatry's note Per ED resident, patient is medically cleared. Patient was seen with bilateral cuts on both forearms with a cast. Patient stated this was a suicide attempt because she broke up with her boyfriend. She stated that she used a juke box mechanic and sliced her forearm because she was feeling depressed and suicidal. Patient stated she is having worsening mood, energy, and concentration for the past one week. She stated that when the relationship ended she decided to take the juke box mechanic to end her life. She also reported she drank a good amount of whiskey last night. Patient currently has suicidal ideations with depressed mood. She currently denies auditory hallucinations, visual hallucinations, and paranoid ideations. III. REVIEW OF PAST AND PRESENT SYMPTOMS: As per HPI IV. PSYCHIATRIC HISTORY: Past psychiatric diagnoses: PAST PSY Dx: depressive disorder. Seen by a psychiatrist before? When AND Why: No. Past suicidal attempts: no. Past psych admissions: No. CURRENT psych meds: Patient stated she is only on Przac V. MEDICAL HISTORY: No past medical history on file. Allergies: Patient has no allergy information on record. . REVIEW OF SYMPTOMS: Skin: negative Eyes: negative review of symptoms Ears/Nose/Throat: negative Respiratory: negative symptoms (no cough, hemoptysis, SOB, STAPLES, PND, wheezing) Cardiovascular: negative symptoms (No CP/Pressure/Tightnes s, palpitations, orthopnea, PND, SOB, STAPLES, edema, FLORES or vision change) Gastrointestinal: negative symptoms (no abdominal pain, anorexia, n/v, indigestion, constipation, or diarrhea) Genitourinary: no urinary symptoms Neurologic: negative symptoms (no syncope, seizures, weakness, gait problems, numbness, burning pain, tremors, or memory loss) Psychiatric: negative (no sleep disturbance, anxiety, memory loss, disorientation, inattention, feelings of depression), sleep disturbance and depression Hematologic/Lymphati c/Immunologic: negative (no anemia, bleeding, bruising) Endocrine: negative review of symptoms VII. PHYSICAL EXAM: BP 115/70 Pulse (!) 106 Temp 98.3 ???F (36.8 ???C) (Oral) Resp 17 SpO2 98% Physical Exam: No Labs: Results for orders placed or performed during the hospital encounter of 11/06/20 ETHANOL, SERUM Result Value Ref Range Ethanol 138 (H) None Detected mg/dL PARTIAL THROMBOPLASTIN TIME Result Value Ref Range aPTT 27 25 - 37 sec BASIC METABOLIC PANEL Result Value Ref Range Glucose 111 (H) 68 - 110 mg/dL Sodium 143 135 - 148 mmol/L Potassium 3.9 3.3 - 5.3 mmol/L Carbon Dioxide 21 21 - 30 mmol/L Chloride 110 97 - 111 mmol/L Blood Urea Nitrogen 7 (L) 8 - 22 mg/dL Creatinine 0.67 0.50 - 1.10 mg/dL Calcium 8.6 8.4 - 10.4 mg/dL Anion Gap 16 (H) 5 - 13 Estimated GFR (CKD-EPI) 125 >=60 mL/min/1.73sqm PROTHROMBIN TIME AND INR Result Value Ref Range Protime 12.4 9.7 - 12.9 sec INR 1.10 0.90 - 1.10 TYPE AND SCREEN Result Value Ref Range ABO Rh Type A Positive Ab Screen Interp Negative ABO Rh/Dunia/TXRX History No Previous Results LACTIC ACID Result Value Ref Range Lactate 2.8 (H) 0.5 - 2.0 mmol/L HIV1 HIV2 AGAB SCRN Result Value Ref Range HIV Ag-Ab Screen Non-Reactive Non-Reactive CBC WITH DIFFERENTIAL Result Value Ref Range WBC 16.6 (H) 4.5 - 11.5 K/uL RBC 4.16 4.00 - 5.20 M/uL Hemoglobin 11.9 (L) 12.0 - 15.0 g/dL Hematocrit 36.3 36.0 - 46.0 % MCV 87 80 - 100 fL MCH 28.5 (more content not included)... Normal [facility] ED Noteson 11-06-2020 Staff Anesthesiologist Authentication Interface Message Text Sonal Chatman, pt's mother: [phone] Normal [facility] Staff Anesthesiologist Authentication Interface Message Text Dr wadsworth at bedside stitching up right arm lac Normal [facility] ED Provider Noteson 11-07-19 Staff Anesthesiologist Authentication Interface Message Text IVON: 24F pmh depression p/w SA by deep forearm lacs. Scant venous bleeding and feeder arterial on exam. Cleaned and sewed. Medically clear. Covid negative. UTox pending. Admit to 6B. Normal [facility] Staff Anesthesiologist Authentication Interface Message Text EMERGENCY DEPARTMENT - VISIT NOTE HISTORY OF PRESENT ILLNESS ------ Chief Complaint Patient presents with * Suicidal Ideations Pt tried to kill herself and slit wrists with juke box mechanic. Pt is pink slipped. Wood Buffer: not needed - patient preferred language is Kyrgyz. The history is provided by the Patient. Amina Johnson is a 24 year old female presenting to the ED for CAT2 trauma s/p suicide attempt. Earlier this evening, patient cut both of her forearms with a juke box mechanic in an attempt to kill herself. She was taken to another hospital where they were concerned about repairing the wounds and the amount of lidocaine it would take. They transferred her here to see Trauma surgery. Patient endorses pain in her bilateral forearms. It is constant described as severe. Denies pain or injury elsewhere. Reports she takes Prozac. She reports she has a previous suicide attempt when she was 21 for which she was hospitalized. Unknown last Tdap. REVIEW OF SYSTEMS Review of Systems Constitutional: Negative for fever. HENT: Negative for nosebleeds. Eyes: Negative for pain. Respiratory: Negative for shortness of breath. Cardiovascular: Negative for chest pain and leg swelling. Gastrointestinal: Negative for abdominal pain and vomiting. Genitourinary: Negative for flank pain. Musculoskeletal: Negative for arthralgias and myalgias. Skin: Positive for wound. Neurological: Negative for syncope. Psychiatric/Behavior al: Positive for self-injury and suicidal ideas. Negative for confusion. PAST HISTORY -- Pertinent Past History: Depression Pertinent Family History: No family history on file. Pertinent Social History: +tobacco and EtOH use Denies drug use PHYSICAL EXAM --- BP 115/70 Pulse (!) 106 Temp 98.3 ???F (36.8 ???C) (Oral) Resp 17 SpO2 98% TRAUMA EXAM: Primary Survey Airway Intact and Talking Breathing Spontaneous, Bilateral breath sounds and Not labored Circulation Palpable bilateral radial, Palpable bilateral DP and Palpable bilateral PT Disability / Spine precautions GCS Score: Eye Openin Verbal Response: 5 Motor Response: 6 Secondary Survey Constitutional Nursing triage notes reviewed, Vital signs reviewed, Alert, Awake and No acute distress Head Atraumatic, Midface stable, No Cephalohematoma and No Lacerations noted Eye Pupils equal round and reactive to light ENT Oropharynx clear, no lacerations, No nasal septal hematoma, No hemotympanum or otorrhea and Midface stable Cervical spine / Neck No cervical spine bony tenderness, crepitus, or stepoff and Normal range of motion Lungs Clear to auscultation and Breath sounds equal and symmetric Cardiac Regular rate and rhythm and No murmurs Abdomen Soft, Nondistended, Nontender and No rebound Neuro Alert normally oriented Moves all 4 extremities symmetrically and equally to command Sensation intact Extremities LUE: large wound on volar aspect of forearm, about 7x5cm, gaping, actively bleeding from small arterial manager architecture RUE: large wound on volar aspect of forearm, about 10x5cm, gaping, active venous bleeding Skin wounds as detailed above Psych Depressed and Suicidal MEDICAL DECISION MAKING and ED COURSE - Nursing triage and assessment notes reviewed and incorporated Chart Reviewed: Summary of pertinent elements includes no previous visits here Labs reviewed Radiology: personally reviewed and preliminary read reviewed . Evaluated by EM attending Antonella Sapp Interpretation of Results: CBC is not concerning for clinically significant anemia, or thrombocytopenia. +leukocytosis c/w trauma EtOH elevated Type and screen A+ BMP is not concerning for clinically significant electrolyte abnormality or MALIK. PTT: WNL INR: WNL Lacate: slightly elevatedat 2.8 c/w trauma XR forearm left: 1. No left forearm acute fracture. 2. Soft tissue irregularity along the volar forearm, consistent with provided history of laceration. No evidence of radiopaque foreign body within the soft tissues.. XR forearm right: 1. No right forearm acute fracture. 2. Soft tissue swelling/injury in the volar forearm. No retained radiopaque foreign body. Course: ED Course as of Nov 06 06MonNov 06, 2020 0531 Psych paged [JS] ED Course User Index [JS] Riccardo Rodríguez MD Medical Decision Makin24 year old female presenting to the ED for CAT2 trauma s/p suicide attempt. On arrival, patient hemodynamically stable, afebrile and in no acute distress. She had gaping lacerations on her bilateral forearms with active bleeding. She had no other external evidence of trauma. Since she was (more content not included)... Normal [facility] ETHANOL, SERUMon 11-06-2020 Ethanol [Mass/Vol] 138 mg/dL High None Detected [facility] Comment on above: Performed By: #### C RP, HEPATIC, TSH HS, HCV, syphilis with confirmation, VITD25, VITB12, CH8, HDL, ANTI-HBS, CORE, ETOH #### [facility] [address] [place], [place], FULL LIPID PROFILEon 021 Cholesterol [Mass/Vol] 192 mg/dL High <181 [facility] Comment on above: Performed By: #### C RP, HEPATIC, TSH HS, HCV, syphilis with confirmation, VITD25, VITB12, CH8, HDL, ANTI-HBS, CORE, ETOH ####[facility] [id number] [place], [place], Cholesterol in LDL [Mass/Vol] 107 mg/dL Normal <111 [facility] Comment on above: Performed By: #### C RP, HEPATIC, TSH HS, HCV, syphilis with confirmation, VITD25, VITB12, CH8, HDL, ANTI-HBS, CORE, ETOH ####[facility] [id number] [place], [place], Cholesterol.total/Ch olesterol in HDL [Mass ratio] 2.67 {ratio} Normal [facility] Comment on above: Performed By: #### C RP, HEPATIC, TSH HS, HCV, syphilis with confirmation, VITD25, VITB12, CH8, HDL, ANTI-HBS, CORE, ETOH ####[facility] [id number] [place], [place], HDL CHOL 72 mg/dL Normal >54 [facility] Comment on above: Performed By: #### C RP, HEPATIC, TSH HS, HCV, syphilis with confirmation, VITD25, VITB12, CH8, HDL, ANTI-HBS, CORE, ETOH ####[facility] [id number] [place], [place], LDL/HDL 1.49 Normal <3.57 [facility] Comment on above: Performed By: #### C RP, HEPATIC, TSH HS, HCV, syphilis with confirmation, VITD25, VITB12, CH8, HDL, ANTI-HBS, CORE, ETOH ####[facility] [id number] [place], [place], NON-HDL CHOLESTEROL 120 mg/dL Normal <130 [facility] Comment on above: Performed By: #### C RP, HEPATIC, TSH HS, HCV, syphilis with confirmation, VITD25, VITB12, CH8, HDL, ANTI-HBS, CORE, ETOH ####[facility] [id number] [place], [place], Triglyceride [Mass/Vol] 100 mg/dL Normal <151 [facility] Comment on above: Performed By: #### C RP, HEPATIC, TSH HS, HCV, syphilis with confirmation, VITD25, VITB12, CH8, HDL, ANTI-HBS, CORE, ETOH ####[facility] [id number] [place], [place], H AND Franc 11-06-2020 Staff Anesthesiologist Authentication Interface Message Text (Incorporates notes from Fly Myers MD on 11/06/20) PATIENT ADMISSION MENTAL HEALTH ASSESSMENT - ADULT PSYCHIATRY IDENTIFICATION: Amina Johnson is a 24 year old year old White female she is single. she lives with her mother and works at [employer]. Patient seen alone. Wood Buffer needed? No HISTORY OF PRESENT ILLNESS: Patient with a history of HISTORY OF: depressive disorder. Brought by law enforcement. Admitted to inpatient psychiatry (6B) for suicide attempt after cutting her wrists Stressors / Circumstances: relationship problems. Per ED's note Chief Complaint Patient presents with * Suicidal Ideations ? Pt tried to kill herself and slit wrists with juke box mechanic. Pt is pink slipped. ??? Wood Buffer:???not needed - patient preferred language is Kyrgyz. ??? The history is provided by the???Patient.??? Amina Johnson???is a 24 year old???female???prese nting to the ED for CAT2 trauma s/p suicide attempt.?Samuel bernard this evening, patient cut both of her forearms with a juke box mechanic???in???an attempt to kill herself. ???She was taken to another hospital where they were concerned about repairing the wounds and the amount of lidocaine with take. ???They transferred here to see Trauma surgery. ???Patient endorses pain in her bilateral forearms it is constant described as severe. Denies pain or injury elsewhere. ???Reports he takes Prozac. ???She reports she has a previous suicide attempt when she was 21 for which she was hospitalized. Unknown last Tdap. ? Psychiatric/Behavior al: Positive for???self-injury??? and suicidal ideas. Negative for???confusion.? Per ED Psychiatry's note Per ED resident, patient is medically cleared. Patient was seen with bilateral cuts on both forearms with a cast. Patient stated this was a suicide attempt because she broke up with her boyfriend. She stated that she used a juke box mechanic and sliced her forearm because she was feeling depressed and suicidal. Patient stated she is having worsening mood, energy, and concentration for the past one week. She stated that when the relationship ended she decided to take the juke box mechanic to end her life. She also reported she drank a good amount of whiskey last night. Patient currently has suicidal ideations with depressed mood. She currently denies auditory hallucinations, visual hallucinations, and paranoid ideations. Per chart review: None On 6B: Ms. oJhnson states she was diagnosed with depression in May 2020 was diagnosed by gynaecologist has never seen a psychiatrist. Pt states she has been taking Prozac since May, has been taking it every day since then. Pt reports having depressive symptoms since age 17, comes and goes, sometimes it gets worse, pt endorses feelings of depressed mood, loss of interest in activities, loss of energy AND motivation, crying spells, poor sleep, feeling of helplessness, thoughts of . Pt states she feels very emotional, sad, crying a lot. Pt states recently broke up with boyfriend for 2 years, on Monday, had to move stuff to storage unit, wanted to make things work with BF he stated he did not love her anymore, so she went to the store and bought a juke box mechanic, bought liquor, drank it then went home and cut herself. Never cut herself in the past. Day before 21th birthday tried to stab herself with a knife, breakup lost her job and dad kicked her out at that time. Pt denies any current suicidal thoughtswith intent or plan, homicidal thoughts with intent or plan, auditory hallucinations, or visual hallucinations. PSYCHIATRIC REVIEW OF PAST AND PRESENT SYMPTOMS: As per HPI PSYCHIATRIC HISTORY: Past psychiatric diagnoses: PAST PSY Dx: depressive disorder. Seen by a psychiatrist before? When AND Why: No. Past suicidal attempts: no. Past psych admissions: No. CURRENT psych meds: Patient stated she is only on Przac ??? MEDICAL HISTORY: No past medical history on file. There is no problem list on file for this patient. Not on File REVIEW OF SYSTEMS: Skin: negative Eyes: negative review of symptoms Ears/Nose/Throat: negative Respiratory: negative symptoms (no cough, hemoptysis, SOB, STAPLES, PND, wheezing) Cardiovascular: negative symptoms (No CP/Pressure/Tightnes s, palpitations, orthopnea, PND, SOB, STAPLES, edema, FLORES or vision change) Gastrointestinal: negative symptoms (no abdominal pain, anorexia, n/v, indigestion, constipation, or diarrhea) Genitourinary: no urinary symptoms Psychiatric: see HPI and Psychiatric Review of Past and Present Symptoms Hematologic/Lymphati c/Immunologic: negative (no anemia, bleeding, bruising) Endocrine: negative review of symptoms SUBSTANCE USE HISTORY: Smoking: Never smoked. Alcohol use: Patient stated that she drinks occasional use of alcohol Illicit drug use: Denies past or current illicit drug use. [facility] AND [facility] HISTORY[facility]ised by biological parents. Highest (more content not included)... Normal [facility] Staff Anesthesiologist Authentication Interface Message Text TRAUMA SURGERY H AND P Amina Johnson [id number] BASIC INJURY INFORMATION: Level of activation: Category 2 Trauma Mode of transport: Advance life support Mechanism of injury: Other: Bilateral intentional lacerations Complicating features: Not applicable Protective measures: Not applicable HISTORY OF PRESENT INJURY: Amina Johnson is a 24 year old female brought in by ACLS transport squad following self inflicted lacerations to the volar aspects of her forearms. Pt transferred to [facility] due to concern for arterial injury. Patient reports feeling suicidal and decided to cut herself. Patient reports using a juke box mechanic. Patient endorses pain to that extremity. Patient is currently pink slipped. Patient has no other acute complaints at this time. Time of Injury approx 2100 Date of Injury 11/05/2020 PRIMARY SURVEY: Airway: Intact Breath sounds: B/l breath sounds, breathing spontaneous and unlabored Circulation: 2+ Radial and DP and femoral pulses, bilateral arm bandages without evidence of active bleeding Disability: motor and sensory grossly intact in the uppers and lowers b/l; GCS of 15 SECONDARY SURVEY: Vitals: BP 115/70 Pulse (!) 106 Temp 98.3 ???F (36.8 ???C) (Oral) Resp 17 SpO2 98% Constitutional: Awake, alert, in no acute distress; vital signs reviewed HENT: No cephalohematoma or laceration, midface is stable, no dental malocclusions, no nasal septal hematoma, no oropharyngeal trauma, TMs intact, no Worthington sign Eyes: PERRLA, EOMI, no conjunctival hemmorhage or obvious orbital trauma Neck: No C-spine tenderness, step-offs, or deformities; trachea midline Chest: No tenderness to palpation of clavicle, sternum, lateral ribcage, no deformities, no crepitus, b/l chest rise Cardiac: Regular rate and rhythm Abdomen: Soft, non-tender, non-distended. No ecchymosis or abrasions. No gross rectal bleeding Pelvis: Pelvis is stable; grossly normal genitalia without blood at the meatus, no gross blood per rectum Extremities: RUE: large volar wound on forearm, approx 10 cm x 5 cm, actively bleeding LUE: large volar wound on forearm approx 7 cm x 5 cm, actively bleeding RLE: Non-TTP, full ROM, no gross deformity LLE: Non-TTP, full ROM, no gross deformity Back: No T/L/S spine tenderness to palpation, step off, or deformity; no abrasions to back Neuro: Alert, oriented, Motor and sensory grossly intact in the uppers and lowers b/l Skin: Warm, dry, see extremeties Psych: Cooperative PAST MEDICAL HISTORY: Depression Suicide attempts PAST SURGICAL HISTORY: No past surgical history on file. PRE-ADMISSION MEDICATIONS: Prozac ALLERGIES: NKDA SOCIAL HISTORY: +ETOH and tobacco, no drug use FAMILY HISTORY: No family history of bleeding or clotting disorders REVIEW OF SYSTEMS: Constitutional: Negative Eyes: Negative Ears/ Nose/ Mouth/ Throat: Negative Respiratory: Negative Cardiovascular: Negative Gastrointestinal: Negative Genitourinary: Negative Musculoskeletal: Negative Neurologic: Negative Psychiatric: Positive Integumentary (skin/breast): Positive Endocrine: Negative Rheumatologic: Negative Allergic/ Immunologic: Negative Significant positives: Suicidal ideation, depression, skin lacerations BASIC LABS Results for orders placed or performed during the hospital encounter of 11/06/20 ETHANOL, SERUM Result Value Ref Range Ethanol 138 (H) None Detected mg/dL PARTIAL THROMBOPLASTIN TIME Result Value Ref Range aPTT 27 25 - 37 sec BASIC METABOLIC PANEL Result Value Ref Range Glucose 111 (H) 68 - 110 mg/dL Sodium 143 135 - 148 mmol/L Potassium 3.9 3.3 - 5.3 mmol/L Carbon Dioxide 21 21 - 30 mmol/L Chloride 110 97 - 111 mmol/L Blood Urea Nitrogen 7 (L) 8 - 22 mg/dL Creatinine 0.67 0.50 - 1.10 mg/dL Calcium 8.6 8.4 - 10.4 mg/dL Anion Gap 16 (H) 5 - 13 Estimated GFR (CKD-EPI) 125 >=60 mL/min/1.73sqm PROTHROMBIN TIME AND INR Result Value Ref Range Protime 12.4 9.7 - 12.9 sec INR 1.10 0.90 - 1.10 TYPE AND SCREEN Result Value Ref Range ABO Rh Type A Positive LACTIC ACID Result Value Ref Range Lactate 2.8 (H) 0.5 - 2.0 mmol/L CBC WITH DIFFERENTIAL Result Value Ref Range WBC 16.6 (H) 4.5 - 11.5 K/uL RBC 4.16 4.00 - 5.20 M/uL Hemoglobin 11.9 (L) 12.0 - 15.0 g/dL Hematocrit 36.3 36.0 - 46.0 % MCV 87 80 - 100 fL MCH 28.5 26.0 - 34.0 pg MCHC 32.7 32.0 - 35.9 g/dL Platelet 440 (H) 150 - 400 K/uL RDW-CV 14.3 11.5 - 14.5 % MPV 7.8 7.5 - 11.2 fL Neutrophils 72.7 31.0 - 76.0 % Neutrophil # 12.06 (H) 1.50 - 8.00 K/uL Lymphocytes 21.2 (L) 24.0 - 44.0 % Lymphocytes # 3.52 1.00 - 4.80 K/uL Monocytes 5.3 2.0 - 11.0 % Monocyte # 0.88 0.20 - 1.00 K/uL Eosinophil 0.2 0.1 - 4.0 % Eosinophil # 0.03 0.00 - 0.70 K/uL Basophils 0.7 <=1.9 % Basophil # 0.11 0.00 - 0.20 K/uL MDW 17 <=20 RADIOLOGY: XR FOREARM RIGHT Result Date: 11/06/2020 EXAMINATION: XR FOREARM RIGHT 2 VIEWSED CLINICAL HISTORY: large inte (more content not included)... Normal [facility] HEPATIC FUNCTION PANELon Albumin [Mass/Vol] 3.9 g/dL Normal 3.4-5.1 [facility] Comment on above: Performed By: #### C RP, HEPATIC, TSH HS, HCV, syphilis with confirmation, VITD25, VITB12, CH8, HDL, ANTI-HBS, CORE, ETOH ####[facility] [id number] [place] [address], ALK 62 IU/L Normal 50-190 [facility] Comment on above: Performed By: #### C RP, HEPATIC, TSH HS, HCV, syphilis with confirmation, VITD25, VITB12, CH8, HDL, ANTI-HBS, CORE, ETOH ####[facility] [id number] [place] [address], ALT [Catalytic activity/Vol] 17 U/L Normal 7-40 [facility] Comment on above: Performed By: #### C RP, HEPATIC, TSH HS, HCV, syphilis with confirmation, VITD25, VITB12, CH8, HDL, ANTI-HBS, CORE, ETOH ####[facility] [id number] [place] [address], AST [Catalytic activity/Vol] 23 U/L Normal 7-40 [facility] Comment on above: Performed By: #### C RP, HEPATIC, TSH HS, HCV, syphilis with confirmation, VITD25, VITB12, CH8, HDL, ANTI-HBS, CORE, ETOH ####[facility] [id number] [place] [address], Bilirubin [Mass/Vol] 0.3 mg/dL Normal 0.1-1.5 [facility] Comment on above: Performed By: #### C RP, HEPATIC, TSH HS, HCV, syphilis with confirmation, VITD25, VITB12, CH8, HDL, ANTI-HBS, CORE, ETOH ####[facility] [id number] [place] [address], Bilirubin.direct [Mass/Vol] 0.10 mg/dL Normal 0.10-0.30 [facility] Comment on above: Performed By: #### C RP, HEPATIC, TSH HS, HCV, syphilis with confirmation, VITD25, VITB12, CH8, HDL, ANTI-HBS, CORE, ETOH ####[facility] [id number] [place] [address], Protein [Mass/Vol] 6.6 g/dL Normal 6.2-8.3 [facility] Comment on above: Performed By: #### C RP, HEPATIC, TSH HS, HCV, syphilis with confirmation, VITD25, VITB12, CH8, HDL, ANTI-HBS, CORE, ETOH ####[facility] [id number] [place] [address], HEPATITIS B CORE ANTIBODYon 11-06-2020 CORE Non-Reactive Normal Nonreactive [facility] Comment on above: Performed By: #### C RP, HEPATIC, TSH HS, HCV, syphilis with confirmation, VITD25, VITB12, CH8, HDL, ANTI-HBS, CORE, ETOH ####[facility] [id number] [place] [address], HEPATITIS B SURFACE ANTIBODY on 11-06-2020 ANTI-HBS < 3.1 Normal [facility] Comment on above: Order Comment: Nonre active: Samples < 7.5 mIU/mLReactive: Samples >/= 10.0 mIU/mLThe accepted criteria for immunity to HBV is anti-HBs activity >/= 10 mIU/mL, as defined by the WHO International Reference Preparation. Performed By: #### C RP, HEPATIC, TSH HS, HCV, syphilis with confirmation, VITD25, VITB12, CH8, HDL, ANTI-HBS, CORE, ETOH ####[facility] [id number] [place] [address], HEPATITIS C ANTIBODYon 11-06 HCV Non-Reactive Normal Nonreactive [facility] Comment on above: Performed By: #### C RP, HEPATIC, TSH HS, HCV, syphilis with confirmation, VITD25, VITB12, CH8, HDL, ANTI-HBS, CORE, ETOH ####[facility] [id number] [place], [place], HIV1 HIV2 AGAB SCRNon 2020 HIV AG-AB SCREEN Non-Reactive Normal Non-Reactive [facility] Comment on above: Order Comment: HIV I nformation: ???[place] Rev. code 3701.243(E):This information has been disclosed to you from confidential records protected from disclosure by state law. ???You shall make no further disclosure of this information without the specific, written, and informed release of the individual to whom it pertains, or as otherwise permitted by state law. ???A general authorization for the release of medical or other information is not sufficient for the purpose of the release of HIV test results or diagnoses. Result Comment: No l aboratory evidence for HIV Infection. Negative result does not rule out acute HIV infection. If acute HIV infection is suspected, recommend ordering an HIV-1 RNA quanitification test. Performed By: #### L ACT #### [facility] [address] [place] [address], LACTIC ACIDon 11-06-2020 CR LACT 2.8 mmol/L High 0.5-2.0 [facility] Comment on above: Performed By: #### L ACT #### [facility] [address] [place] [address], NOVEL CORONAVIRUS (COVID-19) on 11-06-2020 SARS-CoV-2 (COVID-19) RNA ALEA+probe Ql (Unsp spec) Not detected Normal Not Detected [facility] Comment on above: Order Comment: This test is intended for use only under Emergency Use Authorization (EUA). This test was developed, and its performance characteristics determined by [facility] which is certified under CLIA as qualified to perform high complexity clinical laboratory testing. Result Comment: This assay was performed using Rob SELINA RTPCR technology. Performed By: #### C OVID19 #### [facility] [address] [place], [place], PARTIAL THROMBOPLASTIN TIMEo n 11-06-2020 aPTT Coag (Bld) [Time] 27 s Normal 25-37 [facility] Comment on above: Performed By: #### P T, APTT #### [facility] [address], [place], PROTHROMBIN TIME AND INRon 0 11-06-2020 INR Coag (PPP) [Relative time] 1.10 {INR} Normal 0.90-1.10 [facility] Comment on above: Performed By: #### P T, APTT #### [facility] [address] [place], [place], PT Coag (PPP) [Time] 12.4 s Normal 9.7-12.9 [facility] Comment on above: Performed By: #### P T, APTT #### [facility] [address], [place], Progress Noteson 11-06-2020 Staff Anesthesiologist Authentication Interface Message Text Copy of pt father insurance card in chart per instructions Normal [facility] Staff Anesthesiologist Authentication Interface Message Text RECREATION THERAPY ONGOING ASSESSMENT Interview Disposition: Cooperative. Baseline Functioning/ADLs: Manages her own ADLs. I'm moving to my moms house . Language/Speech Barriers: None Physical Limitations: None noted or reported. Mobility Profile: Mobility is good. Any weight gain/loss in last 6 mos. to 1 year? No . Sleeping Patterns in last 6 mos.: Normal . Education History: High School Graduate. 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 Possible Barriers To A Leisure Lifestyle: Cognitive- Undetermined at this time. Continue to assess. Physical- No. Psychological- Yes. Self-Reported MH symptoms: Hurt myself . I just did it out of the blue yesterday . Being treated for Depression since May,. Reports having Depression Since I was [age] . Mental Health Barriers To A Leisure Lifestyle: Yes. How does the patient spend most of their spare time? Watching TV . The last week I've been moving my stuff . Patients Recreation and Leisure Interests: Past- Television. Mow the grass . Spend time outside . Future- Not asked. Current Equipment/Resources Being Used: Housing. Work. Family. Some interests. Continue to Assess. Educate Patient On These Available Resources: [employer], [employer] and [employer] groups. People of Interest/Support: Mother. Father. Brother. Half-Sister. My mom's boy friend . My dad's . She identified no one else for this question. Continue to assess. Specific Areas Of Focus And Education: Expressive/Creative- yes Social Skill Development-yes Recreational/Active- yes Leisure Time Development-yes Relaxation-yes Community Mental Health Activities/Resources -yes Short Term Goals: I get to go home . Head Of Stock Goals: Not asked. [place] Recreation Therapist Normal [facility] Staff Anesthesiologist Authentication Interface Message Text SW - Inpatient Assessment Psych Unit 11/06/2020 White female 24 year old Legal Next of Kin's Name: Matthieu OK to Contact Next of Kin: Yes READMISSION LESS THAN 30 DAYS: No @[id number]@ INTERVIEWED: Patient;Chart Review COGNITIVE STATUS: Oriented to person, place, time and location History of Mental Illness: MDD Psychosocial: Social Stressors : Mental health Past Psych Admissions: No History of Self Harming Behaviors: Yes Number of Times: 1 Method: Patient Active Problem List: Suicide attempt (HCC) [T14.91XA] PCP VERIFIED: No Drug AND ETOH Assessment Substance Use: None, Family History of Use: none Alcohol Audit Highest level of education completed?: High School or GED 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 Income: Wages Payor: SP/UNINSURED / Plan: PENDING FINANCIAL PROGRAM EVALUATION / Product Type: Other History: No History of Abuse: Prefers not to answer Legal History: No PATIENT TREATMENT PREFERENCES: none Adventist: Non Adventism Family History: no Child Safety Concerns: No TENTATIVE DISCHARGE PLAN: Home - Someone else READMISSION RISK SCORE SHOULD BE: Remain Unchanged REASON READMISSION SCORE NEEDS ADJUSTED: none Social Work Treatment Plan LIVING SITUATION: Home - Someone else Verified Able to Return: Yes Baseboard Heating Installer: Contact Name: Matthieu Relationship: mom ) HOME HEALTH CARE PRIOR TO ADMISSION: No Transportation to and/or from Appointments: Drives Self Current Providers: Other (comment) (none) [employer]apons [employer] Already Have a Weapons Officer [employer]: No Support Person Do You Have a Support Person: Yes Support Person Name: SEe above LINC Referral Appropriate for LINC Referral: No Patient Goals PATIENT GOALS RELATED TO DISCHARGE: d/c HOW WILL PATIENT MEET THEIR GOALS: meds Strengths: Income;Housing Limitations: Other (comment) (limited insight) Precast Worker Impression: Pt seen in room. Pt with depressed affect, good eye contact and answered all questions appropriately. SW asked what unit could do to help support stay and recovery. Pt reported that she doesn't understand how anything will help her being Here. SW provided supportive listening and explained role of hospital stay is get pt's mood stabilized by meds and or coping skills from groups. SW explained LOS is short, need to verify pt is safe to d/c. Pt stated she has insurance through her dad's employer. He will be here later and can get copy of card. Pt was unaware of any MH agencies in [place] where she will be living. Pt recently moving out of ' apt to her mom's house. SW contacted [facility]. They reported not taking new clients. SW left message with [facility] [phone] SW spoke with [facility] they are do not have psych services. SW spoke with Jennifer they do not have psych services. MARIELY Spoke with [place] [facility] board [phone]. They provided following resources: [facility] [phone] accepting new pts [facility] [phone] [facility] [phone] [facility] [phone] Walk In Hours MWF -9:30-11 and T, TH 2:30-3:30 Bring ID, proof of residency, insurance card, proof of income Assessment fee of $111 [facility] [place] [id number] [place] [phone] unable to leave no answer. SW will await to hear back from above facilities and schedule f/u. Pt may need to be seen at [facility] with telehealth appt as unable to get pt linked closer to home. ROJAS Salmeron [phone] Normal [facility] Staff Anesthesiologist Authentication Interface Message Text CAT 2: Suicide attempt Pt is a 24 year old female presenting to the ED following a suicide attempt. Pt cut both wrist/forearm with a juke box mechanic. Pt presenting to the ED with lacs to bilateral forearms. Pt's mother is her emergency contact and is aware of pt's transfer to the ED. Mother Matthieu Chatman [phone] Plan: psych Teagan Lindsay CLIENT SERVICES ADMINISTRATOR, EXPERIENCE DESIGN DIRECTOR ED Precast Worker Pager: [phone] Normal [facility] SYPHILIS WITH CONFIRMATIONon 11-06-2020 SYPHILIS TOTAL (IGG/IGM) Non-Reactive Normal Non-Reactive [facility] Comment on above: Order Comment: No Se rologic evidence of syphilis.A nonreactive result does not exclude the possibility of exposure to or infection with T. pallidum. Antibodies may be at low or undetectable levels in incubating or early primary disease and in some clinical conditions. Performed By: #### C RP, HEPATIC, TSH HS, HCV, syphilis with confirmation, VITD25, VITB12, CH8, HDL, ANTI-HBS, CORE, ETOH ####[facility] PATHOLOGY [id number] [place], [place], TPPA Normal [facility] Comment on above: Order Comment: No Se rologic evidence of syphilis.A nonreactive result does not exclude the possibility of exposure to or infection with T. pallidum. Antibodies may be at low or undetectable levels in incubating or early primary disease and in some clinical conditions. Performed By: #### C RP, HEPATIC, TSH HS, HCV, syphilis with confirmation, VITD25, VITB12, CH8, HDL, ANTI-HBS, CORE, ETOH ####[facility] PATHOLOGY [id number] [place], [place], TOXICOLOGY SCREEN, UNCONFIRM EDon 11-06-2020 AMPH Negative Normal Negative [facility] Comment on above: Order Comment: This toxicology screen provides unconfirmed analytical results suitable for clinical management. Results are reported as positive (at or above the cutoff) or negative (below the cutoff). Amphetamines 1000 ng/mL Barbiturates 200 ng/mL Methadone 300 ng/mL Opiates 300 ng/mL Oxycodone 100 ng/mL Fentanyl 1 ng/mL Hydrocodone 100 ng/mL Benzodiazepines 200 ng/mL Cocaine Metabolite 300 ng/mL PCP 25 ng/mL THC 50 ng/mL Norbuprenorphine 10 ng/mL Alcohol 10 mg/dL Positive qualitative result does not indicate or measure intoxication. For toxicology consultation please call the laboratory at [phone]. Performed By: #### T OX TX #### S PATHOLOGY LABORATORY [address] [place] [address], BARBIT Negative Normal Negative The [facility] Comment on above: Order Comment: This toxicology screen provides unconfirmed analytical results suitable for clinical management. Results are reported as positive (at or above the cutoff) or negative (below the cutoff). Amphetamines 1000 ng/mL Barbiturates 200 ng/mL Methadone 300 ng/mL Opiates 300 ng/mL Oxycodone 100 ng/mL Fentanyl 1 ng/mL Hydrocodone 100 ng/mL Benzodiazepines 200 ng/mL Cocaine Metabolite 300 ng/mL PCP 25 ng/mL THC 50 ng/mL Norbuprenorphine 10 ng/mL Alcohol 10 mg/dL Positive qualitative result does not indicate or measure intoxication. For toxicology consultation please call the laboratory at [phone]. Performed By: #### T OX TX #### S [facility] [address] [place] [address], BENZO Negative Normal Negative [facility] Comment on above: Order Comment: This toxicology screen provides unconfirmed analytical results suitable for clinical management. Results are reported as positive (at or above the cutoff) or negative (below the cutoff). Amphetamines 1000 ng/mL Barbiturates 200 ng/mL Methadone 300 ng/mL Opiates 300 ng/mL Oxycodone 100 ng/mL Fentanyl 1 ng/mL Hydrocodone 100 ng/mL Benzodiazepines 200 ng/mL Cocaine Metabolite 300 ng/mL PCP 25 ng/mL THC 50 ng/mL Norbuprenorphine 10 ng/mL Alcohol 10 mg/dL Positive qualitative result does not indicate or measure intoxication. For toxicology consultation please call the laboratory at [phone]. Performed By: #### T OX TX #### S [facility] [address] [place] [address], COCAINE CL Negative Normal Negative [facility] Comment on above: Order Comment: This toxicology screen provides unconfirmed analytical results suitable for clinical management. Results are reported as positive (at or above the cutoff) or negative (below the cutoff). Amphetamines 1000 ng/mL Barbiturates 200 ng/mL Methadone 300 ng/mL Opiates 300 ng/mL Oxycodone 100 ng/mL Fentanyl 1 ng/mL Hydrocodone 100 ng/mL Benzodiazepines 200 ng/mL Cocaine Metabolite 300 ng/mL PCP 25 ng/mL THC 50 ng/mL Norbuprenorphine 10 ng/mL Alcohol 10 mg/dL Positive qualitative result does not indicate or measure intoxication. For toxicology consultation please call the laboratory at [phone]. Performed By: #### T OX SC #### [facility] [address] [place] [address], Ethanol [Mass/Vol] Positive Abnormal Cutoff: 1 0 mg/dL [facility] Comment on above: Order Comment: This toxicology screen provides unconfirmed analytical results suitable for clinical management. Results are reported as positive (at or above the cutoff) or negative (below the cutoff). Amphetamines 1000 ng/mL Barbiturates 200 ng/mL Methadone 300 ng/mL Opiates 300 ng/mL Oxycodone 100 ng/mL Fentanyl 1 ng/mL Hydrocodone 100 ng/mL Benzodiazepines 200 ng/mL Cocaine Metabolite 300 ng/mL PCP 25 ng/mL THC 50 ng/mL Norbuprenorphine 10 ng/mL Alcohol 10 mg/dL Positive qualitative result does not indicate or measure intoxication. For toxicology consultation please call the laboratory at [phone]. Performed By: #### T OX SC #### S [facility] [address] [place] [address], FENTANYL Positive Abnormal Negative [facility] Comment on above: Order Comment: This toxicology screen provides unconfirmed analytical results suitable for clinical management. Results are reported as positive (at or above the cutoff) or negative (below the cutoff). Amphetamines 1000 ng/mL Barbiturates 200 ng/mL Methadone 300 ng/mL Opiates 300 ng/mL Oxycodone 100 ng/mL Fentanyl 1 ng/mL Hydrocodone 100 ng/mL Benzodiazepines 200 ng/mL Cocaine Metabolite 300 ng/mL PCP 25 ng/mL THC 50 ng/mL Norbuprenorphine 10 ng/mL Alcohol 10 mg/dL Positive qualitative result does not indicate or measure intoxication. For toxicology consultation please call the laboratory at [phone]. Performed By: #### T OX SC #### [facility] [address] [place] [address], HYDROCODONE (PM) Negative Normal Negative [facility] Comment on above: Order Comment: This toxicology screen provides unconfirmed analytical results suitable for clinical management. Results are reported as positive (at or above the cutoff) or negative (below the cutoff). Amphetamines 1000 ng/mL Barbiturates 200 ng/mL Methadone 300 ng/mL Opiates 300 ng/mL Oxycodone 100 ng/mL Fentanyl 1 ng/mL Hydrocodone 100 ng/mL Benzodiazepines 200 ng/mL Cocaine Metabolite 300 ng/mL PCP 25 ng/mL THC 50 ng/mL Norbuprenorphine 10 ng/mL Alcohol 10 mg/dL Positive qualitative result does not indicate or measure intoxication. For toxicology consultation please call the laboratory at [phone]. Performed By: #### T OX TX #### S [facility] [address] [place] [address], [id number] Methadone Ql (U) Negative Normal Negative [facility] Comment on above: Order Comment: This toxicology screen provides unconfirmed analytical results suitable for clinical management. Results are reported as positive (at or above the cutoff) or negative (below the cutoff). Amphetamines 1000 ng/mL Barbiturates 200 ng/mL Methadone 300 ng/mL Opiates 300 ng/mL Oxycodone 100 ng/mL Fentanyl 1 ng/mL Hydrocodone 100 ng/mL Benzodiazepines 200 ng/mL Cocaine Metabolite 300 ng/mL PCP 25 ng/mL THC 50 ng/mL Norbuprenorphine 10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 [facility] Start: 12-21-2021 End: 12-21-[address] OMARI BA Facility:[facility] Start: 02-25-2021 End: 02-25-[address] BOBBY DAWSON Facility:[facility] Start: 11-06-2020 End: 11-10-2020 Evaluation and management of inpatient IP PSYCHIATRIC ADULT CONSULT Facility:[facility] Start: 11-06-2020 ambulatory UNKNOWN PROVIDER Facili ty:[facility] Payers Date Payer Category Payer Unknown [id number] 1997 Unknown [id number] [id number] 1997 Unknown [id number] [id number]. [id number] 1997 Unknown [id number] 2.. [id number] 1997 Unknown [id number] 1997 Unknown [id number] 1959 Unknown [id number] 1959 Unknown [id number] Discharge summary note 11-10-2020 Note Date & Type Note Facility 11-10-2020 Note ADMISSION INFORMATIO N - INPATIENT PSYCHIATRY PATIENT NAME: Amina Johnson is a 25 year old White female DATE OF ADMISSION: 11/06/20 DATE OF DISCHARGE: 11/10/20 SERVICE: 6B ATTENDING NAME: Ngozi Laurent MD RESIDENT RESPONSIBLE FOR DISCHARGE SUMMARY: Odin Moreno MD DIAGNOSTIC IMPRESSION: Amina Johnson, 24 year old???White???female???with past history significant for MDD???presenting to ED after a suicide attempt cutting her wrists FINAL DIAGNOSIS: MDD, recurrent, severe Patient Active Problem List: Suicide attempt (HCC) [T14.91XA] MDD (major depressive disorder), recurrent episode, severe (HCC) [F33.2] Psychosocial and Contextual Factors: Relational Problems: recent breakup with BF REASON FOR ADMISSION: suicidal risk., self injurious behavior. HISTORY OF PRESENT ILLNESS: As per Dr. Moreno: Patient with a history of HISTORY OF: depressive disorder. Brought by law enforcement. Admitted to inpatient psychiatry (6B) for suicide attempt after cutting her wrists Stressors / Circumstances: relationship problems. ??? Per ED's note? Chief Complaint Patient presents with * Suicidal Ideations ? Pt tried to kill herself and slit wrists with juke box mechanic. Pt is pink slipped. ??? Wood Buffer:???not needed - patient preferred language is Kyrgyz. ??? The history is provided by the???Patient.??? Amina Johnson???is a 24 year old???female???presenting to the ED for CAT2 trauma s/p suicide attempt.?Earlier this evening, patient cut both of her forearms with a juke box mechanic???in???an attempt to kill herself. ???She was taken to another hospital where they were concerned about repairing the wounds and the amount of lidocaine with take. ???They transferred here to see Trauma surgery. ???Patient endorses pain in her bilateral forearms it is constant described as severe. Denies pain or injury elsewhere. ???Reports he takes Prozac. ???She reports she has a previous suicide attempt when she was 21 for which she was hospitalized. Unknown last Tdap.? Psychiatric/Behavioral: Positive for???self-injury???and suicidal ideas. Negative for???confusion.? Per ED Psychiatry's note Per ED resident, patient is medically cleared. Patient was seen with bilateral cuts on both forearms with a cast. Patient stated this was a suicide attempt because she broke up with her boyfriend. She stated that she used a juke box mechanic and sliced her forearm because she was feeling depressed and suicidal. Patient stated she is having worsening mood, energy, and concentration for the past one week. She stated that when the relationship ended she decided to take the juke box mechanic to end her life. She also reported she drank a good amount of whiskey last night. Patient currently has suicidal ideations with depressed mood. She currently denies auditory hallucinations, visual hallucinations, and paranoid ideations.? Per chart review: None ? On 6B: Ms. Johnson states she was diagnosed with depression in May 2020 was diagnosed by gynaecologist has never seen a psychiatrist. Pt states she has been taking Prozac since May, has been taking it every day since then. Pt reports having depressive symptoms since age 17, comes and goes, sometimes it gets worse, pt endorses feelings of depressed mood, loss of interest in activities, loss of energy AND motivation, crying spells, poor sleep, feeling of helplessness, thoughts of . Pt states she feels very emotional, sad, crying a lot. Pt states recently broke up with boyfriend for 2 years, on Monday, had to move stuff to storage unit, wanted to make things work with BF he stated he did not love her anymore, so she went to the store and bought a juke box mechanic, bought liquor, drank it then went home and cut herself. Never cut herself in the past. Day before 21th birthday tried to stab herself with a knife, breakup lost her job and dad kicked her out at that time. Pt denies any current suicidal thoughtswith intent or plan, homicidal thoughts with intent or plan, auditory hallucinations, or visual hallucinations. REVIEW OF SYMPTOMS ON ADMISSION: As per HPI SUBSTANCE USE HISTORY: Smoking:???Never smoked.??? Alcohol use:???Patient stated that she drinks occasional use of alcohol??? Illicit drug use:???Denies past or current illicit drug use.??? MENTAL STATUS EXAM ON ADMISSION: Appearance: 24 year old female vertical cuts on bilateral forearms stitched together, tattoos, poorly groomed Behavior: tearful, crying, poor eye contact Muscle Tone: no rigidity or tremor noted Level of consciousness: alert Orientation: oriented to time, place and person. Mood: depressed Affect: congruent, dysphoric Speech: clear and normal rate and flow Language: Appropriate Thought Form/Process: logical, organized Thought Content: denies current suicidal thoughts or intention but was admitted (more content not included)... [facility] Clinical Note 11-10-2020 Note Date & Type Note Facility 11-10-2020 Note Problem: Routine Car e: Goal: Patient care will be managed and maintained throughout hospital stay per unit specific routine care procedure Note: Pt appeared to have slept this shift without disturbance. Continue and maintain Q15 min checks for safety. [facility] Clinical Note 11-09-2020 Note Date & Type Note Facility 11-09-2020 Note Pharmacy Psychoeduca tion Group Ms. Johnson attended the pharmacy psychoeducation group today for 45 minutes. The group discussed adherence, barriers to adherence, and methods to overcome the barriers. Ms. Johnson did not participate voluntarily but did answer when called upon. Her answers were mostly 1 or 2 words and she did not make eye contact with me. She did not interact with the other group members. Ms. Johnson did complete the worksheet that was passed out for each group participant. Kimberlyn Armendariz, [facility], located [facility], PharmD, BCPP Ext [phone] [facility] Clinical Note 11-06-2020 Note Date & Type Note Facility 11-06-2020 Note PROCEDURE NOTE: LACE RATION REPAIR Informed consent, after discussion of the risks, benefits, and alternatives to the procedure, was obtained and the consent form was signed by patient . The patient was identified using two patient identifiers: Yes. The H AND P along with required diagnostics are available in Epic: Yes The correct procedure was verified: Yes Procedural site identified: Yes Presence of required equipment verified prior to starting procedure: Yes Patient allergies identified or reviewed: Yes Site marking done: Not indicated A timeout to verify the correct patient, procedure, and site was performed immediately prior to the procedure The laceration was 15 cm long on right upper extremity (forewarm), 6cm and 12cm long on left upper extremity (forearm). Anesthesia was obtained by local infiltration with Lidocaine with epinephrine. The laceration was cleaned with betadine. The area was prepped and draped in the usual sterile fashion. The wound was explored and no foreign body was noted. The site was then repaired with 3 0 vicryl sutures in an interrupted fashion and 3-0 Nylon in an interrupted fashion with good approximation in bilateral forearms. A dressing was placed over the site. The patient tolerated the procedure well. Wei Vasquez DO 11/06/2020 5:22 AM Resident PGY-2 Teaching Physician Note: I agree with the procedure note above. I personally supervised and/or performed the critical portions of procedure and was available for the non-critical portions of the procedure. The sutures will need to be removed in approximately 10 days. She can follow up in trauma clinic for this as needed. Jena Wadsworth MD Division of Trauma, Critical Care, [place], and Emergency General Surgery Department of Surgery [facility] Pager [phone] [facility] Summary Purpose Family History No Family History Records FoundNo Family History Records FoundNo Family History Records FoundNo Family History Records FoundNo Family History Records Found Advance Directives No Advanced Directives Records FoundNo Advanced Directives Records FoundNo Advanced Directives Records FoundNo Advanced Directives Records FoundNo Advanced Directives Records Found Additional Source Comments INFORMATION SOURCE (unrecogn ized section and content) DATE CREATED AUTHOR 08/16/2020 [facility] DATE CREATED AUTHOR AUTHOR'S ORGANIZ ATION 06/15/2021 [facility] DATE CREATED AUTHOR AUTHOR'S ORGANIZ ATION 06/28/2021 [facility] DATE CREATED AUTHOR AUTHOR'S ORGANNEERU ATION 12/24/2021 [facility] DATE CREATED AUTHOR AUTHOR'S ORGANIZ ATION 01/26/2022 Elina Schneider [facility] pital FOR RECORDS PERTAINING TO PATIENTS WHO ARE OR HAVE BEEN ENROLLED IN A CHEMICAL DEPENDENCY/SUBSTANCEABUSE PROGRAM, SOME INFORMATION MAY BE OMITTED. This clinical summary was aggregated from multiple sources. Caution should be exercised in using it in the provision of clinical care. This summary normalizes information from multiple sources, and as a consequence, information in this document may materially change the coding, format and clinical context of patient data. In addition, data may be omitted in some cases. CLINICAL DECISIONS SHOULD BE BASED ON THE PRIMARY CLINICAL RECORDS. [employer] provides no warranty or guarantee of the accuracy or completeness of information in this document.
[2024-02-09 15:10] LABS: Age Gdln ACOG Testing Note (.); IGP, rfx Aptima HPV ASCU Note (.)
== END 2024-02-05 21:08 | disposition home or self-care (01) ==
LOC: LAB 21:07
PROVIDERS: PCP Family Medicine; Visit Provider Obstetrics & Gynecology
DX: Z01.419 Encounter for gynecological examination (general) (routine) without abnormal findings (principal)
CPT/HCPCS: 88175

== ENCOUNTER 2024-06-28 15:25 | Outpatient (OUT) | payer BC, SELFPAY ==
--- OUTSIDE RECORDS SUMMARY | 2024-06-28 15:37 | XMS_ITS | CCD ---
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 Name Role Phone CONSULT, IP PSYCHIATRIC ADULT Consulting Un available BOBBY BRADFORD Primary Care Unavailable ENEDELIA ARAGON Admitting UnavailENEDELIA Edwards Attending UnavailMATT Porter Referring Unavailable REQUEST, IP SITE PROJECT MANAGER SERVICE Consul nasima Unavailable PROVIDER, UNKNOWN Admitting Unavailable PROVIDER, UNKNOWN Attending Unavailable BOBBY BRADFORD Primary Care Unavailable PROVIDER, UNKNOWN Admitting Unavailable PROVIDER, UNKNOWN Attending Unavailable BOBBY BRADFORD Primary Care Unavailable DR BOBBY BRADFORD Admitting Unavailable SAMIR, DR ROSALES Primary Care Unavailable SAMIR, DR ROSALES Consulting Unavailable DR BOBBY BRADFORD Attending Unavailable ROSY, DR MARSHALL Attending Unavailable SAMIR, DR ROSALES Primary Care Unavailable ROSY, DR MARSHALL Admitting Unavailable ROSY, DR MARSHALL Consulting Unavailable BOBBY BRADFORD Primary Care Unavailable KENYATTA REIS Admitting Unavailable KENYATTA REIS Attending Unavailable Bobby Bradford MD Primary Care Provider [phone] LUIZ FLANAGAN Attending Unavailable LUIZ FLAANGAN Attending Unavailable RACHEL ZAIDI Attending Unavailable RACHEL ZAIDI Attending Unavailable Medications Current Medications Medication Drug Class(es) Dates Sig (Normalized) Sig (Original) 24 hr desvenlafaxine succinate 50 mg extended release oral tablet (12 sources) Serotonin and Norepinephrine Reuptake Inhibitor Start: 02-05-2024 End: 02-04-2025 take 1 tablet by mouth once daily desvenlafaxine (Pristiq) 50 MG 24 hr tablet Indications: Anxiety and depression (CMS/HCC) Take 1 tablet (50 mg) by mouth Daily Do not crush, chew, or split. 30 tablet 11 02/05/2024 02/04/2025 Active 24 hr metFORMIN hydrochloride 500 mg extended release oral tablet (12 sources) Biguanide Start: 02-05-2024 End: 03-06-2024 take 1 tablet by mouth every twenty-four hours at mealtime metFORMIN XR (Glucophage-XR) 500 MG 24 hr tablet Indications: Encounter for weight management Take 1 tablet (500 mg) by mouth in the evening. Take with meals Do not crush, chew, or split. 30 tablet 1 02/05/2024 Active phentermine hydrochloride 37.5 mg oral tablet (15 sources) Sympathomimetic Amine Anorectic Start: 03-11-2024 End: 08-04-2024 take 1 tablet by mouth before mealtime phentermine (Adipex-P) 37.5 MG tablet Indications: Encounter for weight management Take 1 tablet (37.5 mg) by mouth in the morning. Take before meals. 90 tablet 05/06/2024 08/04/2024 Active Completed/Discontinued Medications Medication Drug Class(es) Dates Sig (Normalized) Sig (Original) semaglutide (Ozempic, 1 MG/DOSE,) 4 MG/3ML solution pen-injector (2 sources) Start: 11-03-2023 End: 02-05-2024 inject 1 mg by subcutaneous injection every week semaglutide (Ozempic, 1 MG/DOSE,) 4 MG/3ML solution pen-injector Inject 1 mg under the skin 1 (one) time per week 11/03/2023 02/05/2024 Discontinued (Other) Problems Active Problems Problem Classification Problem Date Documented Date Episodic/Chronic Administrative/social admission (8 sources) Patient encounter status; Translations: [Persons encountering health services in other specified circumstances] 03-11-2024 Episodic Anxiety disorders (14 sources) Mixed anxiety and depressive disorder; Translations: [Anxiety disorder, unspecified] Onset: 02-05-2024 02-05-2024 Chronic Immunizations and screening for infectious disease (5 sources) Encounter for screening for infections with a predominantly sexual mode of transmission; Translations: [Encounter for screening for human papillomavirus (HPV)] Onset: 12-21-2021 Episodic Other nutritional; endocrine; and metabolic disorders (4 sources) Weight increased; Translations: [Abnormal weight gain] 04-08-2024 Episodic Other screening for suspected conditions (not [...] Test Name Value Interpretation Reference Range Facility IGP,APTIMA HPV,AGE GDLNon AGE GDLN ACOG TESTING Note . [facility] Comment on above: TESTS RESULT FLAG UN ITS REF RANGE LAB Clinician Provided Cytology Information Source.............Cervix;Endocervix No. of containers..01 ThinPrep Vial Age Algo ACOG Suzy... -21 06 FLAG LEGEND: L-Low Normal,H-High Normal,LL-Alert Low,HH-Alert High <-Panic Low,>-Panic High,A-Abnormal,AA-Critical Abnormal Performed at: 01 =G [facility] [address] [facility] [address] Tana Echevarria MD, IGP, RFX APTIMA HPV ASCU Note . [facility] Comment on above: TESTS RESULT FLAG UN ITS REF RANGE LAB DIAGNOSIS: 02 NEGATIVE FOR INTRAEPITHELIAL LESION OR MALIGNANCY. Specimen adequacy: 02 Satisfactory for evaluation. Endocervical and/or squamous metaplastic cells (endocervical component) are present. Performed by: 02 Brenton Vera Tile Layer Helper ([facility]) . 02 Note: Note 02 The Pap smear is a screening test designed to aid in the detection of premalignant and malignant conditions of the uterine cervix. It is not a diagnostic procedure and should not be used as the sole means of detecting cervical cancer. Both false-positive and false-negative reports do occur. Test Methodology: Note 02 This liquid based ThinPrep(R) pap test was screened with the use of an image guided system. . 02 The HPV DNA reflex criteria were not met with this specimen result therefore, no HPV testing was performed. FLAG LEGEND: L-Low Normal,H-High Normal,LL-Alert Low,HH-Alert High <-Panic Low,>-Panic High,A-Abnormal,AA-Critical Abnormal Performed at: 02 [facility] [address] [facility] [place] [address] Tana Echevarria MD, Performed at: =G - [facility] [address] [place], [place] [id number] Certified Medicine Aide: Tana Echevarria MD, Phone: [phone] Performed at: WB - [facility] [address] [place], [place] [id number] Certified Medicine Aide: Tana Echevarria MD, Phone: [phone] BRUSH[facility]SPATULA CERVIX [facility] Cervical or vaginal smear or scraping studyon 02-05-2024 [facility] CBC with Diffon 01-25-2022 Abs. Basophil 0.11 k/uL Normal 0.00-0.20 [facility] Comment on above: Performed By: #### C DP, CMPX #### [facility] [address] [place] [address] [place] [address] Certified Medicine Aide: Earl Izquierdo MD Abs.Imm.Granulocyte 0.10 k/uL Normal 0.00-0.30 [facility] Comment on above: Performed By: #### C DP, CMPX #### [facility] [address] [place], [place] [id number] Certified Medicine Aide: Earl Izquierdo MD Abs.Neutrophil (Seg) 7.04 k/uL Normal 1.50-8.10 [facility] Comment on above: Performed By: #### C DP, CMPX #### [address] [place] [address] Certified Medicine Aide: Earl Izquierdo MD Basophils/100 WBC (Bld) 1 % Normal 0-2 [facility] Comment on above: Performed By: #### C DP, CMPX #### [facility] [address] [place] [address] Certified Medicine Aide: Earl Izquierdo MD Eosinophils (Bld) [#/Vol] 0.48 10*3/uL High 0.00-0.44 [facility] Comment on above: Performed By: #### C DP, CMPX #### [facility] [address] [place], [place] [address] Certified Medicine Aide: Earl Izquierdo MD Eosinophils/100 WBC (Bld) 4 % Normal 1-4 [facility] Comment on above: Performed By: #### C DP, CMPX #### [address] [place], [place] [id number] Certified Medicine Aide: Earl Izquierdo MD Erythrocyte distribution width (RBC) [Ratio] 16.3 % High 11.8-14.4 [facility] Comment on above: Performed By: #### C DP, CMPX #### [address] [place], [place] [address] Certified Medicine Aide: Earl Izquierdo MD Hematocrit (Bld) [Volume fraction] 41.0 % Normal 36.3-47.1 [facility] Comment on above: Performed By: #### C DP, CMPX #### [address] [place], [facility]83 Certified Medicine Aide: Earl Izquierdo MD Hemoglobin (Bld) [Mass/Vol] 12.6 g/dL Normal 11.9-15.1 [facility] Comment on above: Performed By: #### C DP, CMPX #### [address] [place], [place] 0838183 Certified Medicine Aide: Earl Izquierdo MD Immature granulocytes/100 WBC (Bld) 1 % High 0 [facility] Comment on above: Performed By: #### C DP, CMPX #### [address] [place], [place] [id number] Certified Medicine Aide: Earl Izquierdo MD Lymphocytes (Bld) [#/Vol] 4.07 10*3/uL High 1.10-3.70 [facility] Comment on above: Performed By: #### C DP, CMPX #### [address] [place] [address] Certified Medicine Aide: Earl Izquierdo MD Lymphocytes/100 WBC (Bld) 31 % Normal 24-43 [facility] Comment on above: Performed By: #### C DP, CMPX #### [facility] [address] [place] [address] Certified Medicine Aide: Earl Izquierdo MD MCH (RBC) [Entitic mass] 27.9 pg Normal 25.2-33.5 [facility] Comment on above: Performed By: #### C DP, CMPX #### [facility] [address] [place] [address] Certified Medicine Aide: Earl Izquierdo MD MCHC (RBC) [Mass/Vol] 30.7 g/dL Normal 28.4-34.8 [facility] Comment on above: Performed By: #### C DP, CMPX #### [address] [place] [address] Certified Medicine Aide: Earl Izquierdo MD MCV (RBC) [Entitic vol] 90.9 fL Normal 82.6-102.9 [facility] Comment on above: Performed By: #### C DP, CMPX #### [address] [place] [address] Certified Medicine Aide: Earl Izquierdo MD Monocytes (Bld) [#/Vol] 1.19 10*3/uL Normal 0.10-1.20 [facility] Comment on above: Performed By: #### C DP, CMPX #### [address] [place] [address] Certified Medicine Aide: Ealr Izquierdo MD Monocytes/100 WBC (Bld) 9 % Normal 3-12 [facility] Comment on above: Performed By: #### C DP, CMPX #### [facility] [address] [place] [address] Certified Medicine Aide: Earl Izquierdo MD Neutrophil (Seg) 54 % Normal 36-65 [facility] Comment on above: Performed By: #### C DP, CMPX #### [facility] [address] [place], [place] [phone] Certified Medicine Aide: Earl Izquierdo MD NRBC Automated 0.0 per 100 WBC Normal 0.0 [facility] Comment on above: Performed By: #### C DP, CMPX #### [facility] [address] [place], [id number] Certified Medicine Aide: Earl Izquierdo MD Platelet mean volume (Bld) [Entitic vol] 10.0 fL Normal 8.1-13.5 [facility] Comment on above: Performed By: #### C DP, CMPX #### [facility] [address] [place], [place] [phone] Certified Medicine Aide: Earl Izquierdo MD Platelets (Bld) [#/Vol] 383 10*3/uL Normal 138-453 [facility] Comment on above: Performed By: #### C DP, CMPX #### [address] [place], [place] [address]83 Certified Medicine Aide: Earl Izquierdo MD RBC (Bld) [#/Vol] 4.51 10*6/uL Normal 3.95-5.11 [facility] Comment on above: Performed By: #### C DP, CMPX #### [address] [place], [place] [address] Certified Medicine Aide: Earl Izquierdo MD WBC (Bld) [#/Vol] 13.0 10*3/uL High 3.5-11.3 [facility] Comment on above: Performed By: #### C DP, CMPX #### [facility] [address] [place] [address] Certified Medicine Aide: Earl Izquierdo MD Comp Metabolic Pr/rfx MGon 0 01-25-2022 (cont.) Normal [facility] Comment on above: Result Comment: Aver age GFR for 20-29 years old: 116 mL/min/1.73sq m Chronic Kidney Disease: <60 mL/min/1.73sq m Kidney failure: <15 mL/min/1.73sq m eGFR calculated using average adult body mass. Additional eGFR calculator available at: http://www.GAMINSIDE/multiple_crcl_2012.htm Performed By: #### C DP, CMPX #### [facility] [address] [place], [place] [phone] Certified Medicine Aide: Earl Izquierdo MD Albumin [Mass/Vol] 3.7 g/dL Normal 3.5-5.2 [facility] Comment on above: Performed By: #### C DP, CMPX #### [facility] [address] [place] [address] Dr. [place], [place] 9021883 Certified Medicine Aide: Earl Izquierdo MD Albumin/Glob Ratio 1.6 Normal 1.0-2.5 [facility] Comment on above: Performed By: #### C DP, CMPX #### [facility] [address] [place], [place] 0545583 Certified Medicine Aide: Earl Izquierdo MD Alkaline Phos 55 U/L Normal 35-104 [facility] Comment on above: Performed By: #### C DP, CMPX #### [facility] [address] [place] [address] [place] [address] Certified Medicine Aide: Earl Izquierdo MD ALT [Catalytic activity/Vol] 11 U/L Normal 5-33 [facility] Comment on above: Performed By: #### C DP, CMPX #### [facility] [address] [place], [place] [phone] Certified Medicine Aide: Earl Izquierdo MD Anion gap [Moles/Vol] 8 mmol/L Low 9-17 [facility] Comment on above: Performed By: #### C DP, CMPX #### [facility] [address] [place], [place] [phone] Certified Medicine Aide: Earl Izquierdo MD AST [Catalytic activity/Vol] 11 U/L Normal <32 [facility] Comment on above: Performed By: #### C DP, CMPX #### [facility] [address] [place] [address] Certified Medicine Aide: Earl Izquierdo MD Bilirubin [Mass/Vol] 0.2 mg/dL Low 0.3-1.2 [facility] Comment on above: Performed By: #### C DP, CMPX #### [facility] [address] [place] [address] Certified Medicine Aide: Earl Izquierdo MD BUN/CRE Ratio 12 Normal 9-20 [facility] Comment on above: Performed By: #### C DP, CMPX #### [facility] [address] [place] [address] Certified Medicine Aide: Earl Izquierdo MD Calcium [Mass/Vol] 8.6 mg/dL Normal 8.6-10.4 [facility] Comment on above: Performed By: #### C DP, CMPX #### [facility] [address] [place], [place] [phone] Certified Medicine Aide: Earl Izquierdo MD Chloride [Moles/Vol] 107 mmol/L Normal 98-107 [facility] Comment on above: Performed By: #### C DP, CMPX #### [facility] [address] [place], [place] [phone] Certified Medicine Aide: Earl Izquierdo MD CO2 [Moles/Vol] 26 mmol/L Normal 20-31 [facility] Comment on above: Performed By: #### C DP, CMPX #### [facility] [address] [place] [address] Certified Medicine Aide: Earl Izquierdo MD Creatinine [Mass/Vol] 0.68 mg/dL Normal 0.50-0.90 [facility] Comment on above: Performed By: #### C DP, CMPX #### [facility] [address] [place], [place] 1555683 Certified Medicine Aide: Earl Izquierdo MD GFR, Amer >60 Normal >60 [facility] Comment on above: Performed By: #### C DP, CMPX #### [facility] [address] [place], [place] 7884583 Certified Medicine Aide: Earl Izquierdo MD GFR,non Amer >60 Normal >60 [facility] Comment on above: Performed By: #### C DP, CMPX #### [facility] [address] [place], [place] 9091883 Certified Medicine Aide: Eral Izquierdo MD Glucose [Mass/Vol] 95 mg/dL Normal 70-99 [facility] Comment on above: Performed By: #### C DP, CMPX #### [facility] [address] [place], [place] 7185983 Certified Medicine Aide: Earl Izquierdo MD Potassium [Moles/Vol] 4.0 mmol/L Normal 3.7-5.3 [facility] Comment on above: Performed By: #### C DP, CMPX #### [facility] [address] [place] [address] Dr. [place], [place] 5974983 Certified Medicine Aide: Earl Izquierdo MD Protein [Mass/Vol] 6.0 g/dL Low 6.4-8.3 [facility] Comment on above: Performed By: #### C DP, CMPX #### [facility] [address] [place], [place] 5118383 Certified Medicine Aide: Earl Izquierdo MD Sodium [Moles/Vol] 141 mmol/L Normal 135-144 [facility] Comment on above: Performed By: #### C DP, CMPX #### [facility] [address] [place], [place] 1823483 Certified Medicine Aide: Earl Izquierdo MD Staging: Normal [facility] Comment on above: Result Comment: Stag e 1: Some kidney damage normal GFR Stage 2: Mild kidney damage GFR 60-89 Stage 3: Moderate kidney damage GFR 30-59 Stage 4: Severe kidney damage GFR 15-29 Stage 5: Severe kidney damage GFR <15 ESRD - chronic treatment by dialysis or transplant Performed By: #### C DP, CMPX #### [facility] [address] [place] [address] Dr. [place], [place] [phone] Certified Medicine Aide: Earl Izquierdo MD Urea nitrogen [Mass/Vol] 8 mg/dL Normal 6-20 [facility] Comment on above: Performed By: #### C DP, CMPX #### [address] [place], [id number] Certified Medicine Aide: Earl Izquierdo MD Acetaminophenon 01-24-2022 Acetaminophen [Mass/Vol] ug/mL Low 10-30 [facility] Comment on above: Performed By: #### C DP, CMPX #### [facility] [address] [place] [address] Dr. [place], [id number] Certified Medicine Aide: Earl Izquierdo MD CBC with Diffon 01-24-2022 Abs. Basophil 0.12 k/uL Normal 0.00-0.20 [facility] Comment on above: Performed By: #### C DP, CP #### [address] [place], [place] 7348783 Certified Medicine Aide: Earl Izquierdo MD Abs.Imm.Granulocyte 0.05 k/uL Normal 0.00-0.30 [facility] Comment on above: Performed By: #### C DP, CP #### [facility] [address] [place] [address] Dr. [place], [place] [phone] Certified Medicine Aide: Earl Izquierdo MD Abs.Neutrophil (Seg) 7.91 k/uL Normal 1.50-8.10 [facility] Comment on above: Performed By: #### C DP, CP #### [address] [place], [place] 6260783 Certified Medicine Aide: Earl Izquierdo MD Basophils/100 WBC (Bld) 1 % Normal 0-2 [facility] Comment on above: Performed By: #### C DP, CP #### [facility] [address] [place] [address] [place] [address] Certified Medicine Aide: Earl Izquierdo MD Eosinophils (Bld) [#/Vol] 0.46 10*3/uL High 0.00-0.44 [facility] Comment on above: Performed By: #### C DP, CP #### [address] [place], [place] 5022083 Certified Medicine Aide: Earl Izquierdo MD Eosinophils/100 WBC (Bld) 4 % Normal 1-4 [facility] Comment on above: Performed By: #### C DP, CP #### [address] [place], [place] 8908683 Certified Medicine Aide: Earl Izquierdo MD Erythrocyte distribution width (RBC) [Ratio] 15.9 % High 11.8-14.4 [facility] Comment on above: Performed By: #### C DP, CP #### [address] [place] [address] Certified Medicine Aide: Earl Izquierdo MD Hematocrit (Bld) [Volume fraction] 45.7 % Normal 36.3-47.1 [facility] Comment on above: Performed By: #### C DP, CP #### [address] [place] [address] Certified Medicine Aide: Earl Izquierdo MD Hemoglobin (Bld) [Mass/Vol] 14.5 g/dL Normal 11.9-15.1 [facility] Comment on above: Performed By: #### C DP, CP #### [address] [place] [address] Certified Medicine Aide: Earl Izquierdo MD Immature granulocytes/100 WBC (Bld) 0 % Normal 0 [facility] Comment on above: Performed By: #### C DP, CP #### [facility] [address] [place], [id number] Certified Medicine Aide: Earl Izquierdo MD Lymphocytes (Bld) [#/Vol] 3.57 10*3/uL Normal 1.10-3.70 [facility] Comment on above: Performed By: #### C DP, CP #### [facility] [address] [place], [place] [address] Certified Medicine Aide: Earl Izquierdo MD Lymphocytes/100 WBC (Bld) 27 % Normal 24-43 [facility] Comment on above: Performed By: #### C DP, CP #### [address] [place], [id number] Certified Medicine Aide: Earl Izquierdo MD MCH (RBC) [Entitic mass] 28.0 pg Normal 25.2-33.5 [facility] Comment on above: Performed By: #### C DP, CP #### [address] [place], [id number] Certified Medicine Aide: Earl Izquierdo MD MCHC (RBC) [Mass/Vol] 31.7 g/dL Normal 28.4-34.8 [facility] Comment on above: Performed By: #### C DP, CP #### [address] [place], [id number] Certified Medicine Aide: Earl Izquierdo MD MCV (RBC) [Entitic vol] 88.2 fL Normal 82.6-102.9 [facility] Comment on above: Performed By: #### C DP, CP #### [address] [place] [address] Certified Medicine Aide: Earl Izquierdo MD Monocytes (Bld) [#/Vol] 0.94 10*3/uL Normal 0.10-1.20 [facility] Comment on above: Performed By: #### C DP, CP #### [facility] [address] [place], [place] 4268483 Certified Medicine Aide: Earl Izquierdo MD Monocytes/100 WBC (Bld) 7 % Normal 3-12 [facility] Comment on above: Performed By: #### C DP, CP #### [facility] [address] [place], [place] [address]666683 Certified Medicine Aide: Earl Izquierdo MD Neutrophil (Seg) 61 % Normal 36-65 [facility] Comment on above: Performed By: #### C DP, CP #### [facility] [address] [place], [place] 4698283 Certified Medicine Aide: Earl Izquierdo MD NRBC Automated 0.0 per 100 WBC Normal 0.0 [facility] Comment on above: Performed By: #### C DP, CP #### [address] [place], [id number] Certified Medicine Aide: Earl Izquierdo MD Platelet mean volume (Bld) [Entitic vol] 9.6 fL Normal 8.1-13.5 [facility] Comment on above: Performed By: #### C DP, CP #### [address] [place], [place] 2271683 Certified Medicine Aide: Earl Izquierdo MD Platelets (Bld) [#/Vol] 445 10*3/uL Normal 138-453 [facility] Comment on above: Performed By: #### C DP, CP #### [facility] [address] [place] [address] [place] [address] Certified Medicine Aide: Earl Izquierdo MD RBC (Bld) [#/Vol] 5.18 10*6/uL High 3.95-5.11 [facility] Comment on above: Performed By: #### C DP, CP #### [address] [place], [place] 9881283 Certified Medicine Aide: Earl Izquierdo MD WBC (Bld) [#/Vol] 13.1 10*3/uL High 3.5-11.3 [facility] Comment on above: Performed By: #### C ALLAN, CP #### [facility] [address] [place], [place] 7043083 Certified Medicine Aide: Earl Izquierdo MD Comp Metabolic Profon 2021 (cont.) Normal [facility] Comment on above: Result Comment: Aver age GFR for 20-29 years old: 116 mL/min/1.73sq m Chronic Kidney Disease: <60 mL/min/1.73sq m Kidney failure: <15 mL/min/1.73sq m eGFR calculated using average adult body mass. Additional eGFR calculator available at: http://www.GAM[employer]/multiple_crcl_2011.htm Performed By: #### C ALLAN, CP #### [facility] [address] [place] [address] Dr. [place], [place] [phone] Certified Medicine Aide: Earl Izquierdo MD Albumin [Mass/Vol] 4.9 g/dL Normal 3.5-5.2 [facility] Comment on above: Performed By: #### C ALLAN, CP #### [facility] [address] [place] [address] Dr. [place], [place] [phone] Certified Medicine Aide: Earl Izquierdo MD Albumin/Glob Ratio 1.8 Normal 1.0-2.5 [facility] Comment on above: Performed By: #### C ALLAN, CP #### [facility] [address] [place], [place] [address]3 Certified Medicine Aide: Earl Izquierdo MD Alkaline Phos 67 U/L Normal 35-104 [facility] Comment on above: Performed By: #### C ALLAN, CP #### [facility] [address] [place] [address] Certified Medicine Aide: Earl Izquierdo MD ALT [Catalytic activity/Vol] 14 U/L Normal 5-33 [facility] Comment on above: Performed By: #### C DP, CP #### [facility] [address] [place], [place] [phone] Certified Medicine Aide: Earl Izquierdo MD Anion gap [Moles/Vol] 11 mmol/L Normal 9-17 [facility] Comment on above: Performed By: #### C DP, CP #### [facility] [address] [place], [place] 1074683 Certified Medicine Aide: Earl Izquierdo MD AST [Catalytic activity/Vol] 18 U/L Normal <32 [facility] Comment on above: Performed By: #### C DP, CP #### [facility] [address] [place], [place] [id number] Certified Medicine Aide: Earl Izquierdo MD Bilirubin [Mass/Vol] 0.2 mg/dL Low 0.3-1.2 [facility] Comment on above: Performed By: #### C DP, CP #### [facility] [address] [place], [place] [id number] Certified Medicine Aide: Earl Izquierdo MD BUN/CRE Ratio 7 Low 9-20 [facility] Comment on above: Performed By: #### C DP, CP #### [facility] [address] [place], [place] [phone] Certified Medicine Aide: Earl Izquierdo MD Calcium [Mass/Vol] 9.5 mg/dL Normal 8.6-10.4 [facility] Comment on above: Performed By: #### C DP, CP #### [facility] [address] [place], [place] [id number] Certified Medicine Aide: Earl Izquierdo MD Chloride [Moles/Vol] 106 mmol/L Normal 98-107 [facility] Comment on above: Performed By: #### C DP, CP #### [facility] [address] [place], [place] [id number] Certified Medicine Aide: Earl Izquierdo MD CO2 [Moles/Vol] 25 mmol/L Normal 20-31 [facility] Comment on above: Performed By: #### C DP, CP #### [facility] [address] [place] [address] Certified Medicine Aide: Earl Izquierdo MD Creatinine [Mass/Vol] 0.74 mg/dL Normal 0.50-0.90 [facility] Comment on above: Performed By: #### C DP, CP #### [facility] [address] [place], [place] [phone] Certified Medicine Aide: Earl Izquierdo MD GFR, Amer >60 Normal >60 [facility] Comment on above: Performed By: #### C DP, CP #### [facility] [address] [place], [place] [phone] Certified Medicine Aide: Earl Izquierdo MD GFR,non Amer >60 Normal >60 [facility] Comment on above: Performed By: #### C DP, CP #### [facility] [address] [place], [place] [phone] Certified Medicine Aide: Earl Izquierdo MD Glucose [Mass/Vol] 95 mg/dL Normal 70-99 [facility] Comment on above: Performed By: #### C DP, CP #### [facility] [address] [place], [place] [phone] Certified Medicine Aide: Earl Izquierdo MD Potassium [Moles/Vol] 3.6 mmol/L Low 3.7-5.3 [facility] Comment on above: Performed By: #### C DP, CP #### [facility] [address] [place], [place] [phone] Certified Medicine Aide: Earl Izquierdo MD Protein [Mass/Vol] 7.7 g/dL Normal 6.4-8.3 [facility] Comment on above: Performed By: #### C DP, CP #### [facility] [address] [place] [address] Dr. [place], [place] [phone] Certified Medicine Aide: Earl Izquierdo MD Sodium [Moles/Vol] 142 mmol/L Normal 135-144 [facility] Comment on above: Performed By: #### C DP, CP #### [address] [place], [facility]83 Certified Medicine Aide: Earl Izquierdo MD Staging: Normal [facility] Comment on above: Result Comment: Stag e 1: Some kidney damage normal GFR Stage 2: Mild kidney damage GFR 60-89 Stage 3: Moderate kidney damage GFR 30-59 Stage 4: Severe kidney damage GFR 15-29 Stage 5: Severe kidney damage GFR <15 ESRD - chronic treatment by dialysis or transplant Performed By: #### C DP, CP #### [address] [place], [facility]83 Certified Medicine Aide: Earl Izquierdo MD Urea nitrogen [Mass/Vol] 5 mg/dL Low 6-20 [facility] Comment on above: Performed By: #### C DP, CP #### [address] [place], [facility]83 Certified Medicine Aide: Earl Izquierdo MD Drug Scr, Abuse, Uron 2021 Amphetamine(s),Ur Negative Normal NEG [facility] Comment on above: Performed By: #### U HCG, UA, ARCENIO #### [address] [place], [facility]83 Certified Medicine Aide: Earl Izquierdo MD Barbiturate(s),Ur Negative Normal NEG [facility] Comment on above: Performed By: #### U HCG, UA, ARCENIO #### [address] [place], [facility]83 Certified Medicine Aide: Earl Izquierdo MD Benzodiazepine(s) Negative Normal NEG [facility] Comment on above: Performed By: #### U HCG, UA, ARCENIO #### [facility] [address] [place] [address] Dr. [place], [place] [phone] Certified Medicine Aide: Earl Izquierdo MD Buprenorphrine, Ur Negative Normal [facility] Comment on above: Performed By: #### U HCG, UA, ARCENIO #### [facility] [address] [place], [place] [phone] Certified Medicine Aide: Earl Izquierdo MD Cannabinoid(s),Ur Positive Abnormal NEG [facility] Comment on above: Performed By: #### U HCG, UA, ARCENIO #### [facility] [address] [place] [address] [place] [address] Certified Medicine Aide: Earl Izquierdo MD Cocaine Metabolite Negative Normal [facility] Comment on above: Performed By: #### U HCG, UA, ARCENIO #### [address] [place], [place] [phone] Certified Medicine Aide: Earl Izquierdo MD Methadone Ql (U) Negative Normal [facility] Comment on above: Performed By: #### U HCG, UA, ARCENIO #### [address] [place], [place] [phone] Certified Medicine Aide: Earl Izquierdo MD Methamphetamine, Ur Negative Normal [facility] Comment on above: Performed By: #### U HCG, UA, ARCENIO #### [facility] [address] [place] [address] Dr. [place], [place] [phone] Certified Medicine Aide: Earl Izquierdo MD Opiate(s), Ur Negative Normal [facility] Comment on above: Performed By: #### U HCG, UA, ARCENIO #### [facility] [address] [place] [address] Dr. [place], [place] [phone] Certified Medicine Aide: Earl Izquierdo MD Oxycodone, Urine Negative Normal [facility] Comment on above: Performed By: #### U HCG, UA, ARCENIO #### [facility] [address] [place] [address] Dr. [place], [place] [phone] Certified Medicine Aide: Earl Izquierdo MD Phencyclidine, Ur Negative Normal NEG [facility] Comment on above: Performed By: #### U HCG, UA, ARCENIO #### [facility] [address] [place], [place] [phone] Certified Medicine Aide: Earl Izquierdo MD Propoxyphene,Urine Negative Normal NEG [facility] Comment on above: Performed By: #### U HCG, UA, ARCENIO #### [facility] [address] [place], [place] [phone] Certified Medicine Aide: Earl Izquierdo MD Tricyclic antidepressants Screen Ql (U) Negative Normal NEG [facility] Comment on above: Result Comment: Drug screen results are to be used for medical purposes only. All positive results are unconfirmed. Testing for employment or legal uses should be sent to a reference laboratory for confirmation. Performed By: #### U HCG, UA, ARCENIO #### [facility] [address] [place] [address] [place] [address] Certified Medicine Aide: Earl Izquierdo MD Ethanol Alcoholon 01-24-2022 Ethanol [Mass/Vol] 158 mg/dL High <10 [facility] Comment on above: Performed By: #### A LCB #### [facility] [address] [place] [address] [place] [address] Certified Medicine Aide: Earl Izquierdo MD Ethanol percent 0.158 % High <0.010 [facility] Comment on above: Performed By: #### A LCB #### [facility] [address] [place] [address] [place] [address] Certified Medicine Aide: Earl Izquierdo MD HCG, ,Urineon 01-24 Beta HCG ( test) Ql (U) Negative Normal NEG [facility] Comment on above: Result Comment: Spec imens with hCG levels near the threshold of the test (25 mIU/mL) may give a negative or indeterminate result. In such cases, another test should be performed with a new specimen in 48-72 hours. If early is suspected clinically in this setting, correlation with quantitative serum b-hCG level is suggested. [facility] has confirmed the use of plasma for this test. This has not been cleared or approved by the U.S. Food and Drug Administration. The FDA has determined that such clearance is not necessary. Performed By: #### U HCG, UA, ARCENIO #### [facility] [address] [place] [address] Certified Medicine Aide: Earl Izquierdo MD [id number] 01-24-2022 SARS-CoV-2 (COVID-19) RNA ALEA+probe Ql (Unsp spec) Not detected Normal NOTDET [facility] Comment on above: Result Comment: Rapid NAAT: [...] management decisions. Fact sheet for Healthcare Providers: https://www.fda.gov/media/041444/download Fact sheet for Patients: https://www.fda.gov/media/077722/download Methodology: Isothermal Nucleic Acid Amplification Performed By: #### C OVRB #### [facility] [address] [place] [address] Certified Medicine Aide: Earl Izquierdo MD Salicylateon 01-24-2022 Salicylate <1 Low 3-10 [facility] Comment on above: Performed By: #### S ALI #### [facility] [address] [place] [address] Certified Medicine Aide: Earl Izquierdo MD Urinalysis, Routineon 2021 Bilirubin, SemiQt,Ur Negative Normal NEG [facility] Comment on above: Performed By: #### U HCG, UA, ARCENIO #### [facility] [address] [place], [place] [phone] Certified Medicine Aide: Earl Izquierdo MD Blood, Urine Negative Normal NEG [facility] Comment on above: Performed By: #### U HCG, UA, ARCENIO #### [facility] [address] [place], [place] 6491583 Certified Medicine Aide: Earl Izquierdo MD Clarity (U) Clear Normal CLEAR [facility] Comment on above: Performed By: #### U HCG, UA, ARCENIO #### [facility] [address] [place], [place] [phone] Certified Medicine Aide: Earl Izquierdo MD Color (U) Yellow Normal YEL [facility] Comment on above: Performed By: #### U HCG, UA, ARCENIO #### [facility] [address] [place] [address] Dr. [place], [place] [phone] Certified Medicine Aide: Earl Izquierdo MD Glucose Ql (U) Negative Normal NEG [facility] Comment on above: Performed By: #### U HCG, UA, ARCENIO #### [address] [place], [place] [phone] Certified Medicine Aide: Earl Izquierdo MD Ketones Ql (U) Negative Normal NEG [facility] Comment on above: Performed By: #### U HCG, UA, ARCENIO #### [facility] [address] [place], [place] 8063683 Certified Medicine Aide: Earl Izquierdo MD Leukocyte esterase Test strip Ql (U) Negative Normal NEG [facility] Comment on above: Performed By: #### U HCG, UA, ARCENIO #### [facility] [address] [place], [place] [phone] Certified Medicine Aide: Earl Izquierdo MD Nitrite,Ur Negative Normal NEG [facility] Comment on above: Performed By: #### U HCG, UA, ARCENIO #### [facility] [address] [place] [address] Dr. [place], [place] [phone] Certified Medicine Aide: Earl Izquierdo MD PH,Ur 6.5 Normal 5.0-9.0 [facility] Comment on above: Performed By: #### U HCG, UA, ARCENIO #### [facility] [address] [place] [address] [place] [address] Certified Medicine Aide: Earl Izquierdo MD Protein Ql (U) Negative Normal NEG [facility] Comment on above: Performed By: #### U HCG, UA, ARCENIO #### [address] [place], [place] [phone] Certified Medicine Aide: Earl Izquierdo MD Spec. [place],Ur 1.015 Normal 1.010-1.020 [facility] Comment on above: Performed By: #### U HCG, UA, ARCENIO #### [address] [place], [facility]83 Certified Medicine Aide: Earl Izquierdo MD Urobilinogen,Ur Normal Normal NORM [facility] Comment on above: Performed By: #### U HCG, UA, ARCENIO #### [facility] [address] [place] [address] Dr. [place], [place] [address] Certified Medicine Aide: Earl Izquierdo MD CHLAMYDIA/GONOCOCCUS ALEA ( AB/URINE/PAPon 12-24-2021 Chlamydia trachomatis, ALEA Negative Normal Negative [facility] Comment on above: Performed By: #### C T/NGNA #### [facility] [address] [place] [address] Dr. Britany Martin Neisseria gonorrhoeae, ALEA Negative Normal Negative [facility] Comment on above: Performed By: #### C T/NGNA #### [facility] [address] [place] [address] Dr. Britany Martin PAP ACOG PANEL 2: 21 to 29on 12-24-2021 . . Normal [facility] Comment on above: Performed By: #### [id number] #### [facility] [address] [place] [address] Dr. Britany Martin Age Gdln ACOG Testing 21-29 [facility] Comment on above: Performed By: #### [id number] #### [facility] [address] [place] [address] Dr. Britany Martin DIAGNOSIS: Comment [facility] Comment on above: Result Comment: NEGA TIVE FOR INTRAEPITHELIAL LESION OR MALIGNANCY. Performed By: #### 4 [id number] #### [facility] [address] [place] [address] Dr. Britany Martin Methodology: Comment [facility] Comment on above: Result Comment: This liquid based ThinPrep(R) pap test was screened with the use of an image guided system. Performed By: #### 4 [id number] #### [facility] [address] [place] [address] Dr. Britany Martin Note: Comment [facility] Comment on above: Result Comment: The Pap smear is a screening test designed to aid in the detection of premalignant and malignant conditions of the uterine cervix. It is not a diagnostic procedure and should not be used as the sole means of detecting cervical cancer. Both false-positive and false-negative reports do occur. . Performed By: #### 4 [id number] #### [facility] [address] [place] [address] Dr. Britany Martin Performed by: Comment Normal [facility] Comment on above: Result Comment: Afsaneh Wilhelm, Tile Layer Helper (ASCP) Performed By: #### 4 [id number] #### [facility] [address] [place] [address] Dr. Britany Martin Reflex Criteria: Comment [facility] Comment on above: Result Comment: The HPV DNA reflex criteria were not met with this specimen result therefore, no HPV testing was performed. . Performed By: #### 4 [id number] #### [facility] [address] [place] [address] Dr. Britany Martin Specimen adequacy: Comment Normal [facility] Comment on above: Result Comment: Sati sfactory for evaluation. Endocervical and/or squamous metaplastic cells (endocervical component) are present. Performed By: #### 4 [id number] #### [facility] [address] [place] [address] Dr. Britany Martin VAGINITIS/VAGINOSIS DNA PROB Clement 12-23-2021 Corina species Negative Normal Negative [facility] Comment on above: Performed By: #### V AGINT #### [facility] [address] [address] [address] Britany Martin Gardnerella vaginalis Negative Normal Negative [facility] Comment on above: Performed By: #### V AGINT #### [facility] [address] [place] [address] Dr. Britany Martin Trichomonas vaginalis Negative Normal Negative [facility] Comment on above: Performed By: #### V AGINT #### [facility] [address] [place] [address] Dr. Britany Martin Covid-19 PCR (CVDTBH)on SARS-CoV-2 (COVID-19) RNA ALEA+probe Ql (Unsp spec) Detected Critically abnormal NOT DETECTED [facility] Comment on above: Result Comment: This test is not yet approved or cleared by the [place] FDA. When there are no FDA-approved or cleared tests available, and other criteria are met, FDA can make tests available under an emergency access mechanism called an Emergency Use Authorization (EUA). The EUA for this test is supported by the Auditor/Quality of Health and Human Service's (HHS's) declaration [...] used). Performed By: #### C VDTBH #### [facility] [address] [place] [address] Dr. Britany Martin Complete Blood Count Auto Di ffon 02-22-2021 Basophils (Bld) [#/Vol] 0.1 10*3/uL Normal 0.0-0.2 [facility] Comment on above: Result Comment: PERF ORMED BY: [place] [address] RESEARCH ENGINEER MOHINI GOMEZ M.D. Performed By: #### C BC, CMP, ETOH #### [place] [address] [place] Basophils/100 WBC (Bld) 0.9 % Normal . [facility] Comment on above: Performed By: #### C BC, CMP, ETOH #### [address] Eosinophils (Bld) [#/Vol] 0.2 10*3/uL Normal 0.0-0.45 [facility] Comment on above: Performed By: #### C BC, CMP, ETOH #### [place] [address] [place] Eosinophils/100 WBC (Bld) 2.0 % Normal . [facility] Comment on above: Performed By: #### C BC, CMP, ETOH #### [address] Erythrocyte distribution width (RBC) [Ratio] 21.1 % High 11.9-15.3 [facility] Comment on above: Performed By: #### C BC, CMP, ETOH #### [place] [address] [place] Hematocrit (Bld) [Volume fraction] 32.6 % Low 34.0-46.4 [facility] Comment on above: Performed By: #### C BC, CMP, ETOH #### [place] [address] [place] Hemoglobin (Bld) [Mass/Vol] 10.3 g/dL Low 11.8-15.4 [facility] Comment on above: Performed By: #### C BC, CMP, ETOH #### [address] [place] [address] [place] Lymphocytes (Bld) [#/Vol] 2.9 10*3/uL Normal 1.00-4.8 [facility] Comment on above: Performed By: #### C BC, CMP, ETOH #### [facility] [address] [place] [address] [place] Lymphocytes/100 WBC (Bld) 25.2 % Normal . [facility] Comment on above: Performed By: #### C BC, CMP, ETOH #### [facility] [address] [place] [address] [place] MCH (RBC) [Entitic mass] 22.8 pg Low 24.7-34.3 [facility] Comment on above: Performed By: #### C BC, CMP, ETOH #### [facility] [address] [place] [address] [place] MCV (RBC) [Entitic vol] 71.9 fL Low 80-100 [facility] Comment on above: Performed By: #### C BC, CMP, ETOH #### [address] Mean Corpuscular HGB Conc 31.8 g/dL Low 32.0-35.0 [facility] Comment on above: Performed By: #### C BC, CMP, ETOH #### [facility] [address] [place] [address] [place] Monocytes (Bld) [#/Vol] 0.9 10*3/uL High 0.0-0.8 [facility] Comment on above: Performed By: #### C BC, CMP, ETOH #### [place] [address] [place] Monocytes/100 WBC (Bld) 7.8 % Normal . [facility] Comment on above: Performed By: #### C BC, CMP, ETOH #### [place] [address] [place] Neutrophils (Bld) [#/Vol] 7.3 10*3/uL Normal 1.8-7.7 [facility] Comment on above: Performed By: #### C BC, CMP, ETOH #### [facility] [address] [place] [address] [place] Neutrophils/100 WBC (Bld) 64.1 % Normal . [facility] Comment on above: Performed By: #### C BC, CMP, ETOH #### [facility] [address] Nucleated RBC/100 WBC (Bld) [Ratio] 0.0 % Normal 0-0.5 [facility] Comment on above: Performed By: #### C BC, CMP, ETOH #### [facility] [address] Platelet mean volume (Bld) [Entitic vol] 7.4 fL Normal 6.3-10.7 [facility] Comment on above: Performed By: #### C BC, CMP, ETOH #### [facility] [address] Platelets (Bld) [#/Vol] 494 10*3/uL High 150-450 [facility] Comment on above: Performed By: #### C BC, CMP, ETOH #### [place] [address] [place] RBC (Bld) [#/Vol] 4.53 10*6/uL Normal 3.60-5.00 [facility] Comment on above: Performed By: #### C BC, CMP, ETOH #### [facility] [address] [place] [address] [place] WBC (Bld) [#/Vol] 11.4 10*3/uL High 4.5-11.0 [facility] Comment on above: Performed By: #### C BC, CMP, ETOH #### [address] Comprehensive Metabolic Pane venus 02-22-2021 Albumin [Mass/Vol] 4.0 g/dL Normal 3.2-5.5 [facility] Comment on above: Performed By: #### C BC, CMP, ETOH #### [place] [address] [place] Albumin/Globulin [Mass ratio] 1.4 {ratio} Normal [facility] Comment on above: Performed By: #### C BC, CMP, ETOH #### [facility] [address] [place] [id number] [place] ALP [Catalytic activity/Vol] 61 U/L Normal 32-92 [facility] Comment on above: Performed By: #### C BC, CMP, ETOH #### [facility] [address] [place] [id number] [place] ALT [Catalytic activity/Vol] 20 U/L Normal 10-60 [facility] Comment on above: Performed By: #### C BC, CMP, ETOH #### [facility] [address] AST [Catalytic activity/Vol] 21 U/L Normal 10-42 [facility] Comment on above: Performed By: #### C BC, CMP, ETOH #### [facility] [address] Bilirubin [Mass/Vol] 0.4 mg/dL Normal 0.3-1.2 [facility] Comment on above: Performed By: #### C BC, CMP, ETOH #### [facility] [address] [place] [address] [place] Calcium [Mass/Vol] 9.4 mg/dL Normal 8.2-10.2 [facility] Comment on above: Performed By: #### C BC, CMP, ETOH #### [facility] [address] [place] [address] [place] Chloride [Moles/Vol] 102 mmol/L Normal 95-114 [facility] Comment on above: Performed By: #### C BC, CMP, ETOH #### [facility] [address] [place] [id number] [place] CO2 [Moles/Vol] 24.8 mmol/L Normal 22.0-30.0 [facility] Comment on above: Performed By: #### C BC, CMP, ETOH #### [facility] [address] [place] [id number] [place] Creatinine [Mass/Vol] 0.65 mg/dL Normal 0.44-1.03 [facility] Comment on above: Performed By: #### C BC, CMP, ETOH #### [address] Creatinine Clr Calc Pharmacy 177.86 [facility] Comment on above: Result Comment: PERF ORMED BY: [place] [address]EARCH ENGINEER MOHINI GOMEZ M.D. Performed By: #### C BC, CMP, ETOH #### [address] Estimated GFR ( Verna > 60 [facility] Comment on above: Result Comment: GFR estimated reference range: According to KDOQI guidelines, <60 ml/min/1.73m2 is sufficient to diagnose a patient with chronic kidney disease. Performed By: #### C BC, CMP, ETOH #### [address] Estimated GFR (Non- Am > 60 [facility] Comment on above: Performed By: #### C BC, CMP, ETOH #### [address] Globulin (S) [Mass/Vol] 2.8 g/dL Normal [facility] Comment on above: Performed By: #### C BC, CMP, ETOH #### [address] Glucose [Mass/Vol] 89 mg/dL Normal 70-100 [facility] Comment on above: Result Comment: Ideal Glucose Reference Range is dependent on time and content of last meal. Glucose of more than 200 mg/dL in a nonstressed, ambulatory subject supports the diagnosis of Diabetes Mellitus. ADA recommended reference range Performed By: #### C BC, CMP, ETOH #### [address] Potassium [Moles/Vol] 4.1 mmol/L Normal 3.5-5.1 [facility] Comment on above: Performed By: #### C BC, CMP, ETOH #### [place] [address] [place] Protein [Mass/Vol] 6.8 g/dL Normal 6.1-7.9 [facility] Comment on above: Performed By: #### C BC, CMP, ETOH #### [facility] [address] Sodium [Moles/Vol] 137 mmol/L Normal 136-146 [facility] Comment on above: Performed By: #### C BC, CMP, ETOH #### [facility] [address] Urea nitrogen [Mass/Vol] 8 mg/dL Low - [facility] Comment on above: Performed By: #### C BC, CMP, ETOH #### [facility] [address] [place] [address] [place] Dipstick and Microscopicon 1 Appearance (U) Clear Normal Clear [facility] Comment on above: Order Comment: Name Collection Type:: Clean-Voided Midstream Performed By: #### U HCG, URDS, ADDONUAPLUS #### [facility] [address] [place] [address] Bacteria,Urine None Seen Normal None Seen [facility] Comment on above: Order Comment: Name Collection Type:: Clean-Voided Midstream Performed By: #### U HCG, URDS, ADDONUAPLUS #### [facility] [address] [place] [address] Bilirubin,Urine Negative Normal Negative [facility] Comment on above: Order Comment: Name Collection Type:: Clean-Voided Midstream Performed By: #### U HCG, URDS, ADDONUAPLUS #### [facility] [address] [place] [address] [place] Color (U) Yellow Normal Yellow [facility] Comment on above: Order Comment: Name Collection Type:: Clean-Voided Midstream Performed By: #### U HCG, URDS, ADDONUAPLUS #### [facility] [address] [place] [address] [place] Glucose Ql (U) Normal Normal Normal [facility] Comment on above: Order Comment: Name Collection Type:: Clean-Voided Midstream Performed By: #### U HCG, URDS, ADDONUAPLUS #### [facility] [address] [place] [address] Hyaline Casts,Urine 0-8 Normal 0-8 [facility] Comment on above: Order Comment: Name Collection Type:: Clean-Voided Midstream Performed By: #### U HCG, URDS, ADDONUAPLUS #### [facility] [address] [place] [address] Ketones Ql (U) Negative Normal Negative [facility] Comment on above: Order Comment: Name Collection Type:: Clean-Voided Midstream Performed By: #### U HCG, URDS, ADDONUAPLUS #### [address] Leukocyte esterase Test strip Ql (U) Negative Normal Negative [facility] Comment on above: Order Comment: Name Collection Type:: Clean-Voided Midstream Performed By: #### U HCG, URDS, ADDONUAPLUS #### [address] Nitrite,Urine Negative Normal Negative [facility] Comment on above: Order Comment: Name Collection Type:: Clean-Voided Midstream Performed By: #### U HCG, URDS, ADDONUAPLUS #### [address] Occult Blood,Urine 1+ High Negative [facility] Comment on above: Order Comment: Name Collection Type:: Clean-Voided Midstream Performed By: #### U HCG, URDS, ADDONUAPLUS #### [facility] [address] [place] [address] pH (U) 7.0 [pH] Normal 5.0-9.0 [facility] Comment on above: Order Comment: Name Collection Type:: Clean-Voided Midstream Performed By: #### U HCG, URDS, ADDONUAPLUS #### [facility] [address] [place] [address] Protein,Urine Negative Normal Negative [facility] Comment on above: Order Comment: Name Collection Type:: Clean-Voided Midstream Performed By: #### U HCG, URDS, ADDONUAPLUS #### [facility] [address] [place] [address] RBC LM.HPF (Urine sed) [#/Area] 0 /[HPF] Normal 0-4 [facility] Comment on above: Order Comment: Name Collection Type:: Clean-Voided Midstream Performed By: #### U HCG, URDS, ADDONUAPLUS #### [address] Specificy [place],Urine 1.009 Normal 1.001-1.030 [facility] Comment on above: Order Comment: Name Collection Type:: Clean-Voided Midstream Performed By: #### U HCG, URDS, ADDONUAPLUS #### [address] Squamous Epithelial Cell,Urine 1-2 Normal 0-2 [facility] Comment on above: Order Comment: Name Collection Type:: Clean-Voided Midstream Performed By: #### U HCG, URDS, ADDONUAPLUS #### [address] Urobilinogen,Urine Normal Normal Normal [facility] Comment on above: Order Comment: Name Collection Type:: Clean-Voided Midstream Performed By: #### U HCG, URDS, ADDONUAPLUS #### [address] WBC,Urine 5-9 High 0-4 [facility] Comment on above: Order Comment: Name Collection Type:: Clean-Voided Midstream Performed By: #### U HCG, URDS, ADDONUAPLUS #### [place] [address] [place] Drug Screen,Urineon 02-23-20 Amphetamine Screen,Urine Negative Normal Negative [facility] Comment on above: Performed By: #### U HCG, URDS, ADDONUAPLUS #### [address] Barbiturate Screen,Urine Negative Normal Negative [facility] Comment on above: Performed By: #### U HCG, URDS, ADDONUAPLUS #### [facility] [address] [place] [address] Benzodiazepines Screen,Urine Negative Normal Negative [facility] Comment on above: Performed By: #### U HCG, URDS, ADDONUAPLUS #### [address] Cannabinoid Screen,Urine Positive High Negative [facility] Comment on above: Result Comment: Thes e are unconfirmed results and should not be used for legal purposes. Drug Cut-Off Concentration: AMPH 1000 ng/mL FALLON 200 ng/mL LEONARD 200 ng/mL COCM 300 ng/mL OP 300 ng/mL PCP 25 ng/mL THC 20 ng/mL PERFORMED BY: [place] [address] [address] RESEARCH ENGINEER MOHINI GOMEZ M.D. Performed By: #### U HCG, URDS, ADDONUAPLUS #### [address] Cocaine Screen,Urine Negative Normal Negative [facility] Comment on above: Performed By: #### U HCG, URDS, ADDONUAPLUS #### [address] Opiate Screen,Urine Negative Normal Negative [facility] Comment on above: Performed By: #### U HCG, URDS, ADDONUAPLUS #### [facility] [address] [place] [address] Phencyclidine Screen,Urine Negative Normal Negative [facility] Comment on above: Performed By: #### U HCG, URDS, ADDONUAPLUS #### [facility] [address] [place] [address] Ethyl Alcohol Profileon Ethanol [Mass/Vol] mg/dL Normal [facility] Comment on above: Performed By: #### C BC, CMP, ETOH #### [facility] [address] [place] [address] Percent Ethanol Not performed [facility] Comment on above: Result Comment: PERF ORMED BY: [place] [address]EARCH ENGINEER MOHINI GOMEZ M.D. Performed By: #### C BC, CMP, ETOH #### [facility] [address] [place] [address] HCG,Urineon 02-22-2021 Beta HCG ( test) Ql (U) Negative Normal [facility] Comment on above: Order Comment: Name Collection Type:: Clean-Voided Midstream Result Comment: PERF ORMED BY: [place] [address]EARCH ENGINEER MOHINI GOMEZ M.D. Performed By: #### U HCG, URDS, ADDONUAPLUS #### [address] Discharge Planning Noteon Consumer Lending Manager Authentication Interface Message Text Social Work Discharge Plan Patient's Contact Information: Address: [address] [place] [address] DISCHARGE PLAN: Home - Other's Disposition Location: as above Transportation to and/or from Appointments: Drives Self Support Person Support Person Aware of Discharge: Yes Support Person's Name: matthieu Number: [phone] Relationship to Patient: mom Prior to discharge, our [facility] pharmacy will deliver your medications to your bedside.: Yes Long Acting Injectables Long Acting Injectables (RUBY): No Discharge Home Health Care: No Psych Medicaid Follow-Up: No Community Follow-up : Yes Community Agency: [facility] Community Povider Follow-up Date: 12/14/20 Community Provider Follow-up Time: 0430 [facility] Follow-up: No Substance Abuse Follow-up Plan: Refused IM Letters Probate/Mental Health Board Notified: No No follow-ups on file. Pt aware of appointment. Pt called and scheduled in person intake. [place] Lew Oleary [facility],COW TRIMMER [phone] Normal [facility] Progress Noteson 11-10-2020 Consumer Lending Manager Authentication Interface Message Text Attestation signed by Enedelia Gallardo MD at 11/10/2020 8:33 PM .Teaching Physician Note: I saw and evaluated the patient. I personally obtained the nunn and critical portions of the history and physical exam. I reviewed the resident's documentation and discussed the patient with the resident. I agree with the resident's medical decision making as documented in the resident's note. Enedelia Gallardo MD 6B INPATIENT - PROGRESS NOTE Amina Méndez 25 year old female Room: [facility] Admit Date: 11/06/2020 Today's Date: 11/10/2020 Length of stay: 4 day(s) Reason for Admission/ED Presentation: Chief Complaint Patient presents with * Suicidal Ideations Pt tried to kill herself and slit wrists with box tender. Pt is pink slipped. SUBJECTIVE Pt seen [...] Ideations, Intent or Plan: denies ASSESSMENT Amina Méndez, 24 year old White female with past history significant for MDD presenting to ED after a suicide attempt cutting her wrists On assessment pt denies any depressive symptoms, suicidal ideation intent or plan. Pt's affect is brigh (more content not included)... Normal [facility] UM Noteon 11-10-2020 Consumer Lending Manager Authentication Interface Message Text 11/09/2020 Chief Complaint Patient presents with * Suicidal Ideations ? Pt tried to kill herself and slit wrists with box tender. Pt is pink slipped. ??? SUBJECTIVE Pt [...] with her mother, and plans to visit [place] to ride horses with her friend. Pt [...] with her Father, vacationing with family in [place], to ride horses, and eventually returning to [...] or Plan: denies ? ASSESSMENT ??? Amina Méndez, 24 year old???White???female ???with past history significant for MDD???presenting to ED after a suicide attempt cutting her wrists ??? On assessment pt reports improvement of depressive symptoms and denies any suicidal ideation intent or plan. Pt is still very tearful and (more content not included)... Normal [facility] Care Plan Noteon 11-09-2020 Consumer Lending Manager Authentication Interface Message Text Problem: Risk For Suicide: Goal: Ability to disclose and discuss suicidal ideas will improve and be maintained 11/09/20201749 by Anthony Mendes RN [...] with her Father, vacationing with family in [place], to ride horses, and eventually returning to [...] from injury during hospitalization 11/09/20201749 by Anthony Mendes RN Outcome: Progressing Note: Patient remains safe [...] healing without signs and symptoms of infection 11/09/2020 1750 by Anthony Mendes RN Outcome: Progressing Note: Self-inflicted lacerations to Patient's bilateral forearms were as (more content not included)... Normal [facility] Consumer Lending Manager Authentication Interface Message Text Problem: Risk For [...] with her Father, vacationing with family in [place], to ride horses, and eventually returning to work. Patient states that she may require [place] paperwork to take off from work, until [...] she will permit same, later. Normal [facility] Consumer Lending Manager Authentication Interface Message Text Problem: Routine Care: Goal: Patient care will be managed and maintained throughout hospital stay per unit specific routine care procedure Outcome: Progressing Note: Patient in bed sleeping and in no apparent distress with respirations even and unlabored. Slept restful throughout night. Q 15 min safety checks maintained. Normal [facility] Consultson 11-09-2020 Consumer Lending Manager Authentication Interface Message Text Wound Ostomy Continence [...] Types: Laceration Wound Description: ~18cm, self-inflicted laceration (box tender), closed with 20 sutures Present on Admission?: Present on Transfer to Unit / Floor Ongoing - Patient Being Discharged: Previously Removed / Not Present: Wound Bed Edema;Elkin;Moist 11/09/20 1500 Surrounding Tissue/Wound Edge Edema 11/09/20 1500 Drainage Scant;Serous 11/09/20 1500 Dressing Other (comment);Telfa (Bacitracin) 11/09/20 1500 Closure Sutures 11/09/20 1500 Wound Anterior;Left Forearm Laceration (Active) Orientation: Anterior;Left Wound Location: Forearm Wound Types: Laceration Wound Description: ~18cm self-inflicted laceration (box tender), closed with 14 sutures Present on Admission?: Present on Transfer to Unit / Floor Ongoing - Patient Being Discharged: Previously Removed / Not Present: Wound Bed Moist;Elkin;Slough 11/09/20 1500 Surrounding Tissue/Wound Edge Ecchymosis;Edema 11/09/20 1500 Drainage Scant;Serosanguineou s 11/09/20 1500 Dressing Telfa;Other (comment) (Bacitracin) 11/09/20 1500 Care Provided to Patient Included: Wounds cleansed with soap and water, bacitracin and Telfa applied. [facility] Nurse Recommendation: BUE Forearms-Wash the sites [...] MSN, RN, CWOCN Swati Lynn BSN, RN [facility] Nurse Normal [facility] Progress Noteson 11-09-2020 Consumer Lending Manager Authentication Interface Message Text [facility] Daily Notes Subjective: Pt participated in morning [...] on 6B. Phu Kebede Tracie Normal [facility] Consumer Lending Manager Authentication Interface Message Text [facility] [phone]. They are able to accept pt's insurance and will have availability for new patient intake. The Center would like pt to contact tomorrow with her information to arrange initial intake. SW will follow up with pt in the morning. SONAL Davidson,COW TRIMMER [phone] Normal [facility] Consumer Lending Manager Authentication Interface Message Text Wound Care Consult assessed lacerations to Patient's bilateral forearms. Tension along suture line, due to edema at the sight is causing wound edges to become less proximal between sutures. Awaiting new orders. Meanwhile, Patient encouraged to elevate arms whenever possible and Patient will be provided ice packs. Normal [facility] [employer] Consumer Lending Manager Authentication Interface Message Text Attestation signed by Enedelia Gallardo MD at 11/09/2020 1:45 PM .Teaching Physician Note: I saw and evaluated the patient. I personally obtained the nunn and critical portions of the history and physical exam. I reviewed the resident's documentation and discussed the patient with the resident. I agree with the resident's medical decision making as documented in the resident's note. Enedelia Gallardo MD 6B INPATIENT - PROGRESS NOTE Amina Méndez 25 year old female Room: B617/02 Admit Date: 11/06/2020 Today's Date: 11/09/2020 Length of stay: 3 day(s) Reason for Admission/ED Presentation: Chief Complaint Patient presents with * Suicidal Ideations Pt tried to kill herself and slit wrists with box tender. Pt is pink slipped. SUBJECTIVE Pt seen [...] with her mother, and plans to visit [place] to ride horses with her friend. Pt [...] with her Father, vacationing with family in [place], to ride horses, and eventually returning to [...] T (more content not included)... Normal [facility] Consumer Lending Manager Authentication Interface Message Text Patient declined her ordered Bacitracin/dressing change, preferring to allow her wounds to breathe a little. However, creamy yellow sough can be seen about the wound bed of the distal portion of the laceration to her (L) forearm. Patient did permit the application of a loosely dressed, dry, sterile dressing to keep the are clean. Normal [facility] Consumer Lending Manager Authentication Interface Message Text .Teaching Physician Note: I saw and evaluated the patient. I personally obtained the nunn and critical portions of the history and physical exam. I reviewed the resident's documentation and discussed the patient with the resident. I agree with the resident's medical decision making as documented in the resident's note. Enedelia Gallardo MD 25 yo female with a 6 month hx of prozac. 20 mg. Seriouis suicide attempt vertical bilateral wrist slashing Was depressed over the fact tthat boyfriend left her and made very derogatory statements.. On exam very tearful, irritable Does not necessarily understand the repercussions of her act. A/p MDD BRITTANY Increase prozac to 40 mg.Enedelia Gallardo MD Normal [facility] UM Noteon 11-09-2020 Consumer Lending Manager Authentication Interface Message Text To ED 11/06/2020 @ 0246 Admit to inpatient 11/06/2020 @ 1304 To ED: Chief Complaint Patient presents with * Suicidal Ideations ? Pt tried to kill herself and slit wrists with box tender. Pt is pink slipped. The history is provided by the Patient. Amina Méndez is a 24 year old female presenting to the ED for CAT2 trauma s/p suicide attempt. Earlier this evening, patient cut both of her forearms with a box tender in an attempt to kill herself. She [...] 7x5cm, gaping, actively bleeding from small arterial regulatory submissions associate RUE: large wound on volar aspect of [...] bleeding, sutures were placed in the Trauma [place] to tamponade the bleeding. X-rays without evidence [...] consult: IX. [facility]ORY[facility] Raised by biological parents. Highest EDUCATION: High school graduate. History of ABUSE or exposure to TRAUMATIC event / service: No.. Current RESIDENCY: lives alone. Current social SUPPORT: no one. LEGAL history: denied. FAMILY psychiatric AND suicide history: No. ? X. MENTAL STATUS EXAMINATION: Appearance AND attitude: psychomotor retardation. Mood: depressed. Affect: congruent (more content not included)... Normal [facility] Care Plan Noteon 2020 Consumer Lending Manager Authentication Interface Message Text Problem: Routine Care: [...] with medications and treatment plan. Normal [facility] Consumer Lending Manager Authentication Interface Message Text Problem: Risk For [...] this morning, laughing and joking with this advertising writer despite being on 6B for her birthday. [...] orders. Will continue to monitor. Normal [facility] Consumer Lending Manager Authentication Interface Message Text The patient was resting in bed during the night. Respirations were even and nonlabored. And the patient appeared to have slept the shift without disturbance. Patient remains on suicide precautions and 6 minute checks. Normal [facility] Progress Noteson 2020 Consumer Lending Manager Authentication Interface Message Text Patients father Abimael [...] might make an attempt again. Normal The [employer] Authentication Interface Message Text Attestation signed by Jonathan [...] MD 6B INPATIENT - PROGRESS NOTE Amina Méndez 25 year old female Room: B617/02 Admit Date: 11/06/2020 Today's Date: 2020 Length of stay: 2 day(s) Reason for Admission/ED Presentation: Chief Complaint Patient presents with * Suicidal Ideations Pt tried to kill herself and slit wrists with box tender. Pt is pink slipped. SUBJECTIVE Pt seen [...] this morning, laughing and joking with this advertising writer despite being on 6B for her birthday. [...] fair (more content not included)... Normal [facility] Care Plan Noteon 11-07-2020 Consumer Lending Manager Authentication Interface Message Text Problem: Risk For [...] Q6 minute checks for safety. Normal [facility] Consumer Lending Manager Authentication Interface Message Text Problem: Risk For [...] be dehisced. Dr. Moreno informed. Normal [facility] Consumer Lending Manager Authentication Interface Message Text Problem: Routine Care: [...] checks maintained for suicide precautions. Normal [facility] Progress Noteson 11-07-2020 Consumer Lending Manager Authentication Interface Message Text Attestation signed by Jonathan Licona MD at 11/07/2020 4:54 PM Teaching [...] MD 6B INPATIENT - PROGRESS NOTE Amina Méndez 24 year old female Room: B617/02 Admit Date: 11/06/2020 Today's Date: 11/07/2020 Length of stay: 1 day(s) Reason for Admission/ED Presentation: Chief Complaint Patient presents with * Suicidal Ideations Pt tried to kill herself and slit wrists with box tender. Pt is pink slipped. SUBJECTIVE Pt was [...] Glu BUN Cr Ca Mg PO4 11/06/20 025 143 3.9 110 21 16 111 7 [...] au (more content not included)... Normal [facility] BASIC METABOLIC PANELon 10-20 Anion gap [Moles/Vol] 16 mmol/L High 5-13 [facility] Comment on above: Performed By: #### C RP, HEPATIC, TSH HS, HCV, syphilis with confirmation, VITD25, VITB12, CH8, HDL, ANTI-HBS, CORE, ETOH #### [facility] [address] [place] [address], Calcium [Mass/Vol] 8.6 mg/dL Normal 8.4-10.4 [facility] Comment on above: Performed By: #### C RP, HEPATIC, TSH HS, HCV, syphilis with confirmation, VITD25, VITB12, CH8, HDL, ANTI-HBS, CORE, ETOH #### [facility] [address] [place] [address], Chloride [Moles/Vol] 110 mmol/L Normal 97-111 [facility] Comment on above: Performed By: #### C RP, HEPATIC, TSH HS, HCV, syphilis with confirmation, VITD25, VITB12, CH8, HDL, ANTI-HBS, CORE, ETOH #### [facility] [address] [place] [address], CO2 [Moles/Vol] 21 mmol/L Normal 21-30 [facility] Comment on above: Performed By: #### C RP, HEPATIC, TSH HS, HCV, syphilis with confirmation, VITD25, VITB12, CH8, HDL, ANTI-HBS, CORE, ETOH #### [facility] [address] [place] [address], Creatinine [Mass/Vol] 0.67 mg/dL Normal 0.50-1.10 [facility] Comment on above: Performed By: #### C RP, HEPATIC, TSH HS, HCV, syphilis with confirmation, VITD25, VITB12, CH8, HDL, ANTI-HBS, CORE, ETOH #### [facility] [address] [place] [address], ESTIMATED GFR (CKD-EPI) 125 mL/min/1.73sqm Normal >=60 [facility] Comment on above: Performed By: #### C RP, HEPATIC, TSH HS, HCV, syphilis with confirmation, VITD25, VITB12, CH8, HDL, ANTI-HBS, CORE, ETOH #### [facility] [address] [place] [address], Glucose [Mass/Vol] 111 mg/dL High 68-110 [facility] Comment on above: Performed By: #### C RP, HEPATIC, TSH HS, HCV, syphilis with confirmation, VITD25, VITB12, CH8, HDL, ANTI-HBS, CORE, ETOH #### [facility] [address] [place] [address], Potassium [Moles/Vol] 3.9 mmol/L Normal 3.3-5.3 [facility] Comment on above: Performed By: #### C RP, HEPATIC, TSH HS, HCV, syphilis with confirmation, VITD25, VITB12, CH8, HDL, ANTI-HBS, CORE, ETOH #### [facility] [address] [place] [address], Sodium [Moles/Vol] 143 mmol/L Normal 135-148 [facility] Comment on above: Performed By: #### C RP, HEPATIC, TSH HS, HCV, syphilis with confirmation, VITD25, VITB12, CH8, HDL, ANTI-HBS, CORE, ETOH #### [facility] [address] [place] [address], Urea nitrogen [Mass/Vol] 7 mg/dL Low 8- [facility] Comment on above: Performed By: #### C RP, HEPATIC, TSH HS, HCV, syphilis with confirmation, VITD25, VITB12, CH8, HDL, ANTI-HBS, CORE, ETOH #### [facility] PATHOLOGY LABORATORY [address] [place], [place], C-REACTIVE PROTEINon 021 CRP [Mass/Vol] mg/L Normal <0.8 The [facility] Comment on above: Performed By: #### C RP, HEPATIC, TSH HS, HCV, syphilis with confirmation, VITD25, VITB12, CH8, HDL, ANTI-HBS, CORE, ETOH ####[facility] PATHOLOGY [id number] [place], [place], CBC WITH DIFFERENTIALon 10-20 Basophils (Bld) [#/Vol] 0.11 10*3/uL Normal 0.00-0.20 The [facility] Comment on above: Performed By: #### L ACT #### [facility] PATHOLOGY LABORATORY [address] [place], [place], Basophils/100 WBC (Bld) 0.7 % Normal <=1.9 [facility] Comment on above: Performed By: #### L ACT #### S PATHOLOGY LABORATORY [address] [place], [place], Eosinophils (Bld) [#/Vol] 0.03 10*3/uL Normal 0.00-0.70 [facility] Comment on above: Performed By: #### L ACT #### S PATHOLOGY LABORATORY [address] [place], [place], Eosinophils/100 WBC (Bld) 0.2 % Normal 0.1-4.0 [facility] Comment on above: Performed By: #### L ACT #### [facility] PATHOLOGY LABORATORY [address] [place], [place], Erythrocyte distribution width (RBC) [Ratio] 14.3 % Normal 11.5-14.5 [facility] Comment on above: Performed By: #### L ACT #### [facility] PATHOLOGY LABORATORY [address] [place], [place], Hematocrit (Bld) [Volume fraction] 36.3 % Normal 36.0-46.0 [facility] Comment on above: Performed By: #### L ACT #### [facility] PATHOLOGY LABORATORY [address] [place], [place], Hemoglobin (Bld) [Mass/Vol] 11.9 g/dL Low 12.0-15.0 [facility] Comment on above: Performed By: #### L ACT #### [facility] PATHOLOGY LABORATORY [address] [place], [place], Lymphocytes (Bld) [#/Vol] 3.52 10*3/uL Normal 1.00-4.80 [facility] Comment on above: Performed By: #### L ACT #### S PATHOLOGY LABORATORY [address] [place], [place], Lymphocytes/100 WBC (Bld) 21.2 % Low 24.0-44.0 [facility] Comment on above: Performed By: #### L ACT #### S PATHOLOGY LABORATORY [address] [place], [place], MCH (RBC) [Entitic mass] 28.5 pg Normal 26.0-34.0 [facility] Comment on above: Performed By: #### L ACT #### [facility] PATHOLOGY LABORATORY [address] [place] [address], MCHC (RBC) [Mass/Vol] 32.7 g/dL Normal 32.0-35.9 The [facility] Comment on above: Performed By: #### L ACT #### [facility] PATHOLOGY LABORATORY [address] [place] [address], MCV (RBC) [Entitic vol] 87 fL Normal 80-100 The [facility] Comment on above: Performed By: #### L ACT #### [facility] PATHOLOGY LABORATORY [address] [place] [address], MONOCYTE DISTRIBUTION WIDTH 17 Normal <=20 The [facility] Comment on above: Performed By: #### L ACT #### [facility] PATHOLOGY LABORATORY [address] [place] [address], Monocytes (Bld) [#/Vol] 0.88 10*3/uL Normal 0.20-1.00 [facility] Comment on above: Performed By: #### L ACT #### [facility] PATHOLOGY LABORATORY [address] [place] [address], Monocytes/100 WBC (Bld) 5.3 % Normal 2.0-11.0 [facility] Comment on above: Performed By: #### L ACT #### [facility] PATHOLOGY LABORATORY [address] [place], [place], Neutrophils (Bld) [#/Vol] 12.06 10*3/uL High 1.50-8.00 [facility] Comment on above: Performed By: #### L ACT #### [facility] PATHOLOGY LABORATORY [address] [place], [place], Neutrophils/100 WBC (Bld) 72.7 % Normal 31.0-76.0 The [facility] Comment on above: Performed By: #### L ACT #### [facility] PATHOLOGY LABORATORY [address] [place] [address], Platelet mean volume (Bld) [Entitic vol] 7.8 fL Normal 7.5-11.2 [facility] Comment on above: Performed By: #### L ACT #### [facility] PATHOLOGY LABORATORY [address] [place], [place], Platelets (Bld) [#/Vol] 440 10*3/uL High 150-400 The [facility] Comment on above: Performed By: #### L ACT #### S PATHOLOGY LABORATORY [address] [place], [place], RBC (Bld) [#/Vol] 4.16 10*6/uL Normal 4.00-5.20 The [facility] Comment on above: Performed By: #### L ACT #### S PATHOLOGY LABORATORY [address] [place], [place], WBC (Bld) [#/Vol] 16.6 10*3/uL High 4.5-11.5 The [facility] Comment on above: Performed By: #### L ACT #### S PATHOLOGY LABORATORY [address] [place], [place], Care Plan Noteon 11-06-2020 Consumer Lending Manager Authentication Interface Message Text Problem: Routine Care: [...] [address] Normal The [facility] Consultson 11-06-2020 Consumer Lending Manager Authentication Interface Message Text PSYCHIATRY MENTAL HEALTH ASSESSMENT - ADULT PSYCHIATRY Appointment start time: 5:41 AM Duration of visit: 30 minutes. I. IDENTIFICATION: Amina Méndez is a 24 year old White female. [...] to kill herself and slit wrists with box tender. Pt is pink slipped. ??? Transcriber: not needed - patient preferred language is Citizen Of [place]. ??? The history is provided by the Patient. Amina Méndez is a 24 year old female presenting to the ED for CAT2 trauma s/p suicide attempt. Earlier this evening, patient cut both of her forearms with a box tender in an attempt to kill herself. She [...] boyfriend. She stated that she used a box tender and sliced her forearm because she was feeling depressed and suicidal. Patient stated she is having worsening mood, energy, and concentration for the past one week. She stated that when the relationship ended she decided to take the box tender to end her life. She also reported [...] 28.5 (more content not included)... Normal The [facility] ED Noteson 11-06-2020 Consumer Lending Manager Authentication Interface Message Text Sonal Chatman, pt's mother: [phone] Normal The [facility] Consumer Lending Manager Authentication Interface Message Text Dr wadsworth at bedside stitching up right arm lac Normal [facility] ED Provider Noteson 11-07-19 Consumer Lending Manager Authentication Interface Message Text IVON: 24F pmh depression p/w SA by deep forearm lacs. Scant venous bleeding and feeder arterial on exam. Cleaned and sewed. Medically clear. Covid negative. UTox pending. Admit to 6B. Normal The [facility] Consumer Lending Manager Authentication Interface Message Text EMERGENCY DEPARTMENT - VISIT NOTE HISTORY OF PRESENT ILLNESS ------ Chief Complaint Patient presents with * Suicidal Ideations Pt tried to kill herself and slit wrists with box tender. Pt is pink slipped. Transcriber: not needed - patient preferred language is Citizen Of [place]. The history is provided by the Patient. Amina Méndez is a 24 year old female presenting to the ED for CAT2 trauma s/p suicide attempt. Earlier this evening, patient cut both of her forearms with a box tender in an attempt to kill herself. She [...] 7x5cm, gaping, actively bleeding from small arterial regulatory submissions associate RUE: large wound on volar aspect of [...] was (more content not included)... Normal The [facility] ETHANOL, SERUMon 11-06-2020 Ethanol [Mass/Vol] 138 mg/dL High None Detected The [facility] Comment on above: Performed By: #### C RP, HEPATIC, TSH HS, HCV, syphilis with confirmation, VITD25, VITB12, CH8, HDL, ANTI-HBS, CORE, ETOH #### [facility] PATHOLOGY LABORATORY [address], [place], FULL LIPID PROFILEon 021 Cholesterol [Mass/Vol] 192 mg/dL High <181 [facility] Comment on above: Performed By: #### C RP, HEPATIC, TSH HS, HCV, syphilis with confirmation, VITD25, VITB12, CH8, HDL, ANTI-HBS, CORE, ETOH ####[facility] PATHOLOGY [id number] [place], [place], Cholesterol in LDL [Mass/Vol] 107 mg/dL Normal <111 The [facility] Comment on above: Performed By: #### C RP, HEPATIC, TSH HS, HCV, syphilis with confirmation, VITD25, VITB12, CH8, HDL, ANTI-HBS, CORE, ETOH ####[facility] PATHOLOGY [id number] [place], [place], Cholesterol.total/Ch olesterol in HDL [Mass ratio] 2.67 {ratio} Normal The [facility] Comment on above: Performed By: #### C RP, HEPATIC, TSH HS, HCV, syphilis with confirmation, VITD25, VITB12, CH8, HDL, ANTI-HBS, CORE, ETOH ####[facility] PATHOLOGY [id number] [place], [place], HDL CHOL 72 mg/dL Normal >54 The [facility] Comment on above: Performed By: #### C RP, HEPATIC, TSH HS, HCV, syphilis with confirmation, VITD25, VITB12, CH8, HDL, ANTI-HBS, CORE, ETOH ####[facility] PATHOLOGY [id number] [place], [place], LDL/HDL 1.49 Normal <3.57 The [facility] Comment on above: Performed By: #### C RP, HEPATIC, TSH HS, HCV, syphilis with confirmation, VITD25, VITB12, CH8, HDL, ANTI-HBS, CORE, ETOH ####S PATHOLOGY [id number] [place], [place], NON-HDL CHOLESTEROL 120 mg/dL Normal <130 The [facility] Comment on above: Performed By: #### C RP, HEPATIC, TSH HS, HCV, syphilis with confirmation, VITD25, VITB12, CH8, HDL, ANTI-HBS, CORE, ETOH ####S PATHOLOGY [id number] [place], [place], Triglyceride [Mass/Vol] 100 mg/dL Normal <151 The [facility] Comment on above: Performed By: #### C RP, HEPATIC, TSH HS, HCV, syphilis with confirmation, VITD25, VITB12, CH8, HDL, ANTI-HBS, CORE, ETOH ####S PATHOLOGY [id number] [place], [place], H AND Franc 11-06-2020 Consumer Lending Manager Authentication Interface Message Text (Incorporates notes from Fly Myers MD on 11/06/20) PATIENT ADMISSION MENTAL HEALTH ASSESSMENT - ADULT PSYCHIATRY IDENTIFICATION: Amina Méndez is a 24 year old year old White female she is single. she lives with her mother and works at [employer]. Patient seen alone. Transcriber needed? No HISTORY OF PRESENT ILLNESS: Patient with a history of HISTORY OF: depressive disorder. Brought by law enforcement. Admitted to inpatient psychiatry (6B) for suicide attempt after cutting her wrists Stressors / Circumstances: relationship problems. Per ED's note Chief Complaint Patient presents with * Suicidal Ideations ? Pt tried to kill herself and slit wrists with box tender. Pt is pink slipped. ??? Transcriber:???not needed - patient preferred language is Citizen Of [place]. ??? The history is provided by the???Patient.??? Amina Méndez???is a 24 year old???female???prese nting to the ED for CAT2 trauma s/p suicide attempt.?Samuel bernard this evening, patient cut both of her forearms with a box tender???in???an attempt to kill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 Facility:[facility] Start: 02-25-2021 End: 02-25-[address] BOBBY BRADFORD Facility:[facility] Start: 11-06-2020 End: 11-10-2020 Evaluation and management of inpatient IP PSYCHIATRIC ADULT CONSULT Facility:[facility] Start: 11-06-2020 ambulatory UNKNOWN PROVIDER Facili ty:[facility] Procedures Date Procedure Procedure Detail Performing Clinician Start: 02-05-2024 IGP,APTIMA HPV,AGE GDLN Luiz Flanagan DO Work Phone: Start: 02-05-2024 Cytp cerv/vag auto t hin layer prep mnl screen Luiz Flanagan DO Work Phone: Plan of Treatment Date Care Activity Detail Author Start: 02-11-2025 End: 02-11-2025 Patient encounter procedure 02/11/2025 8:30 AM EDT Office Visit [facility] [address] [place] [address] Luiz Flanagan DO [address] [place], [place] [id number] [facility] Start: 05-06-2024 End: 05-06-2024 Patient encounter procedure [facility] Comment on above: Arrived Start: 04-08-2024 End: 04-08-2024 Patient encounter procedure 04/08/2024 9:30 AM EST Office Visit [facility] [address] [place] [id number] Rachel Zaidi PA [address] [place], [place] [id number] [facility] Start: 03-11-2024 End: 03-11-2024 Patient encounter procedure [facility] Comment on above: Arrived Start: 02-05-2024 End: 02-05-2024 Patient encounter procedure 02/05/2024 1:30 PM EDT Office Visit [facility] [address] [place] [address] Luiz Flanagan DO [address] [place], [place] [id number] Arrived [facility] Comment on above: Arrived Cytology Cervical or vaginal smear or scraping study Pap Smear Pathology and Cytology Routine Well woman exam with routine gynecological exam Ordered: 02/05/2024 [facility] Work Phone: Comment on above: Ordered: 02/05/2024 Payers Date Payer Category [id number] 2024 Unknown [id number] 2018 Unknown [id number] 1997 Unknown [id number] 1997 Unknown [id number] 732 1997 Unknown [id number] 732 1997 Unknown [id number] 593 1997 Unknown [id number] 593 1997 Unknown [id number]. 1259 1997 Unknown [id number]. 1259 1997 Unknown [id number] [id number]. 1259 1997 Unknown [id number] [id number]. 1259 1959 Unknown [id number] 1959 Unknown [id number] Social History Date Type Detail Facility Tobacco smoking stat [facility] Tobacco smoking consumption unknown [facility] Start: 1997 Sex assigned at Not on file [facility] Gender identity Not on file [facility] Notes 11-06-2020 to 05-06-2024 DENG Jamil - 05/06/2024 8:50 AM DENG Lambert - 04/08/2024 9:30 AM Trixie Ellsworth LPN - 03/11/2024 8:40 AM Luis Ellsworth LPN - 02/05/2024 1:30 PM EDT Note Date & Type Note Facility 05-06-2024 History of Present illness Narrative Reason for Appointment: Patient ID: Amina Méndez is a 28 y.o. female who presents for Weight Management (Pt present today for Adipex #3) Patient presents today for a weight management consultation. Patient has been prescribed Adipex and she is here for her 3rd prescription. Today's Vitals: Estimated body mass index is 38.77 kg/m as calculated from the following: Height as of 04/08/24: 5' 5 . Weight as of 04/08/24: 233 lb. Previous Weight/BMI: Wt Readings from Last 3 Encounters: 04/08/24 233 lb 03/11/24 238 lb 1.9 oz 02/05/24 248 lb 12.8 oz BMI Readings from Last 3 Encounters: 04/08/24 38.77 kg/m Allergies as of 05/06/2024 (No Known Allergies) No past medical history on file. No past surgical history on file. Review of Systems: Review of Systems Constitutional: Negative. HENT: Negative. Eyes: Negative. Respiratory: Negative. Cardiovascular: Negative. Gastrointestinal: Negative. Genitourinary: Negative. Musculoskeletal: Negative. Skin: Negative. Neurological: Negative. All other systems reviewed and are negative. Hematological: Negative. Endocrine: Negative. Allergic/Immunologic: Negative. Objective Physical Exam Constitutional: Appearance: Normal appearance. She is normal weight. HENT: Head: Normocephalic. Cardiovascular: Rate and Rhythm: Normal rate. Pulses: Normal pulses. Pulmonary: Effort: Pulmonary effort is normal. Breath sounds: Normal breath sounds. Abdominal: Palpations: Abdomen is soft. Musculoskeletal: General: Normal range of motion. Neurological: General: No focal deficit present. Mental Status: She is alert and oriented to person, place, and time. Psychiatric: Mood and Affect: Mood normal. Behavior: Behavior normal. Thought Content: Thought content normal. Judgment: Judgment normal. Vitals and nursing note reviewed. Assessment/Plan No diagnosis found. Adipex: Patient presents today for 3rd Adipex prescription. Patient desires additional weigh loss and she is currently taking metformin along with working out to achieve further results. Weight and blood pressure has been captured and I have discussed/reiterated the importance of keeping a food journal, proper nutrition/diet, and exercise regimen. Patient verbalized understanding. Patient has lost more than 5% of her initial body weight Follow Up: Patient is to return to office for annual well women exam unless needed otherwise. Pt was given a 90 day supply of Adipex and to return in 3 months for a f/up on Adipex weight loss. Documented by: Kristal Toro MA on behalf of DENG Jamil documented in this encounter [facility] 04-08-2024 History of Present illness Narrative Reason for Appointment: Patient ID: Amina Méndez is a 28 y.o. female who presents for Weight Management (Adipex #2) Patient presents today for Weight Management Consult. MEDICATIONS Current Outpatient Medications Medication Instructions desvenlafaxine (PRISTIQ) 50 mg, Oral, Daily, Do not crush, chew, or split. metFORMIN XR (GLUCOPHAGE-XR) 500 mg, Oral, Daily with evening meal, Do not crush, chew, or split. phentermine (ADIPEX-P) 37.5 mg, Oral, Daily before breakfast phentermine (ADIPEX-P) 37.5 mg, Oral, Daily before breakfast ALLERGIES No Known Allergies PROBLEMS Active Ambulatory Problems Diagnosis Date Noted Anxiety and depression ([facility]) 02/05/2024 Resolved Ambulatory Problems Diagnosis Date Noted No Resolved Ambulatory Problems No Additional Past Medical History HISTORY PAST MEDICAL HISTORY SOCIAL HISTORY No past medical history on file. Social History Tobacco Use Smoking status: Not on file Smokeless tobacco: Not on file Substance Use Topics Alcohol use: Not on file Drug use: Not on file FAMILY HISTORY No family history on file. SURGICAL HISTORY History reviewed. No pertinent surgical history. REVIEW OF SYSTEMS Review of Systems: Review of Systems Constitutional: Negative. HENT: Negative. Eyes: Negative. Respiratory: Negative. Cardiovascular: Negative. Gastrointestinal: Negative. Genitourinary: Negative. Musculoskeletal: Negative. Skin: Negative. Neurological: Negative. All other systems reviewed and are negative. Hematological: Negative. Endocrine: Negative. Allergic/Immunologic: Negative. OBJECTIVE Objective: Physical Exam Constitutional: Appearance: Normal appearance. She is normal weight. HENT: Head: Normocephalic. Cardiovascular: Rate and Rhythm: Normal rate. Pulses: Normal pulses. Pulmonary: Effort: Pulmonary effort is normal. Breath sounds: Normal breath sounds. Abdominal: Palpations: Abdomen is soft. Musculoskeletal: General: Normal range of motion. Neurological: General: No focal deficit present. Mental Status: She is alert and oriented to person, place, and time. Psychiatric: Mood and Affect: Mood normal. Behavior: Behavior normal. Thought Content: Thought content normal. Judgment: Judgment normal. Vitals and nursing note reviewed. Vitals: Estimated body mass index is 38.77 kg/m as calculated from the following: Height as of this encounter: 5' 5 . Weight as of this encounter: 233 lb. BP: 122/72 No LMP recorded. ASSESSMENT & PLAN ICD-10-CM 1. Weight gain R63.5 2. Encounter for weight management Z76.89 phentermine (Adipex-P) 37.5 MG tablet Patient presents today for 2nd Adipex prescription. Patient desires additional weigh loss and she is currently taking metformin along with working out to achieve further results. The possibility of Ozempic for future use has been discussed. Weight and blood pressure has been captured and it has been discussed/reiterated the importance of keeping a food journal, proper nutrition/diet, and exercise regimen. Patient verbalized understanding. Patient has lost more than 5% of her initial body weight Follow Up: Patient is to return to the office in 1 month for further evaluation to assess patient progress. Weight and blood pressure will need to be obtained in order for patient to receive 4th Adipex prescription. Documented by DENG Jamil on behalf of: DENG Jamil documented in this encounter [facility] 03-11-2024 History of Present illness Narrative Reason for Appointment: Patient ID: Amina Méndez is a 28 y.o. female who presents for Weight Management Patient presents today for Weight Management Consult. MEDICATIONS Current Outpatient Medications Medication Instructions desvenlafaxine (PRISTIQ) 50 mg, Oral, Daily, Do not crush, chew, or split. metFORMIN XR (GLUCOPHAGE-XR) 500 mg, Oral, Daily with evening meal, Do not crush, chew, or split. phentermine (ADIPEX-P) 37.5 mg, Oral, Daily before breakfast ALLERGIES No Known Allergies PROBLEMS Active Ambulatory Problems Diagnosis Date Noted Anxiety and depression ([facility]) 02/05/2024 Resolved Ambulatory Problems Diagnosis Date Noted No Resolved Ambulatory Problems No Additional Past Medical History HISTORY PAST MEDICAL HISTORY SOCIAL HISTORY History reviewed. No pertinent past medical history. Social History Tobacco Use Smoking status: Not on file Smokeless tobacco: Not on file Substance Use Topics Alcohol use: Not on file Drug use: Not on file FAMILY HISTORY No family history on file. SURGICAL HISTORY History reviewed. No pertinent surgical history. REVIEW OF SYSTEMS Review of Systems: Review of Systems All other systems reviewed and are negative. OBJECTIVE Objective: Physical Exam Constitutional: Appearance: Normal appearance. She is well-developed. Cardiovascular: Rate and Rhythm: Normal rate and regular rhythm. Pulmonary: Effort: Pulmonary effort is normal. Breath sounds: Normal breath sounds. Abdominal: General: Bowel sounds are normal. There is no distension. Palpations: Abdomen is soft. Tenderness: There is no abdominal tenderness. There is no guarding or rebound. Musculoskeletal: General: No swelling. Normal range of motion. Right lower leg: No edema. Left lower leg: No edema. Neurological: Mental Status: She is alert and oriented to person, place, and time. Skin: General: Skin is warm and dry. Psychiatric: Mood and Affect: Mood normal. Behavior: Behavior normal. Vitals and nursing note reviewed. Exam conducted with a fire equipment operator present. Vitals: There is no height or weight on file to calculate BMI. BP: 118/78 No LMP recorded. ASSESSMENT & PLAN ICD-10-CM 1. Encounter for weight management Z76.89 phentermine (Adipex-P) 37.5 MG tablet Patient presents today for initial Adipex prescription. The importance of keeping a food journal, proper nutrition/diet, and exercise regimen while taking Adipex has been discussed. Patient verbalized understanding and signed consents to initiate (Adipex) medication therapy. Patient was given a printed prescription signed by provider to take to their local pharmacy. Patient voiced she is doing well on Metformin. Follow Up: Patient is to return to the office in 1 month for further evaluation to assess patient progress. Weight and blood pressure will need to be captured in order for patient to receive 2nd prescription. Documented by Mercedez Ellsworth LPN on behalf of: Luiz Flanagan DO documented in this encounter [facility] 02-05-2024 History of Present illness Narrative Reason for Appointment: Patient ID: Amina Méndez is a 28 y.o. female who presents for Well Women Visit Patient presents today for Annual Exam. MEDICATIONS No current outpatient medications ALLERGIES No Known Allergies PROBLEMS Active Ambulatory Problems Diagnosis Date Noted No Active Ambulatory Problems Resolved Ambulatory Problems Diagnosis Date Noted No Resolved Ambulatory Problems No Additional Past Medical History HISTORY PAST MEDICAL HISTORY SOCIAL HISTORY History reviewed. No pertinent past medical history. Social History Tobacco Use Smoking status: Not on file Smokeless tobacco: Not on file Substance Use Topics Alcohol use: Not on file Drug use: Not on file FAMILY HISTORY No family history on file. SURGICAL HISTORY History reviewed. No pertinent surgical history. REVIEW OF SYSTEMS Review of Systems: Review of Systems All other systems reviewed and are negative. OBJECTIVE Objective: Physical Exam Constitutional: Appearance: Normal appearance. She is well-developed. Genitourinary: Breasts: Breasts are soft. Right: Normal. Left: Normal. Cardiovascular: Rate and Rhythm: Normal rate and regular rhythm. Pulmonary: Effort: Pulmonary effort is normal. Breath sounds: Normal breath sounds. Abdominal: General: Bowel sounds are normal. There is no distension. Palpations: Abdomen is soft. Tenderness: There is no abdominal tenderness. There is no guarding or rebound. Musculoskeletal: General: No swelling. Normal range of motion. Right lower leg: No edema. Left lower leg: No edema. Neurological: Mental Status: She is alert and oriented to person, place, and time. Skin: General: Skin is warm and dry. Psychiatric: Mood and Affect: Mood normal. Behavior: Behavior normal. Vitals and nursing note reviewed. Exam conducted with a fire equipment operator present. Vitals: There is no height or weight on file to calculate BMI. BP: 120/74 No LMP recorded. ASSESSMENT & PLAN ICD-10-CM 1. Well woman exam with routine gynecological exam Z01.419 Pap Smear Annual Exam: Patient presents today for an annual exam. Patient states she is doing well and has no complaints. Pap was obtained without difficulty. Patient originally scheduled for pelvic pain and patient voiced that has gone away and she thinks it may have been constipation. Weight management: Patient to start Metformin 500mg daily and RTC in 1 month to increase Metformin 1000mg and start Adipex. Also, per patient request refilled Pristiq 50 mg as she has just relocated back to the area and was in need of refills. Follow Up: Patient is to return in 1 month for weight management & return in one year for annual unless needed otherwise. Documented by Mercedez Ellsworth LPN on behalf of: Luiz Flanagan DO documented in this encounter [facility] 11-10-2020 Note ADMISSION INFORMATIO N - INPATIENT PSYCHIATRY PATIENT NAME: Amina Méndez is a 25 year old White female DATE OF ADMISSION: 11/06/20 DATE OF DISCHARGE: 11/10/20 SERVICE: 6B ATTENDING NAME: Enedelia Laurent MD RESIDENT RESPONSIBLE FOR DISCHARGE SUMMARY: Odin Moreno MD DIAGNOSTIC IMPRESSION: Amina Méndez, 24 year old???White???female???with past history significant for [...] to kill herself and slit wrists with box tender. Pt is pink slipped. ??? Transcriber:???not needed - patient preferred language is Citizen Of [place]. ??? The history is provided by the???Patient.??? Amina Méndez???is a 24 year old???female???presenting to the ED for CAT2 trauma s/p suicide attempt.?Earlier this evening, patient cut both of her forearms with a box tender???in???an attempt to kill herself. ???She was taken [...] boyfriend. She stated that she used a box tender and sliced her forearm because she was feeling depressed and suicidal. Patient stated she is having worsening mood, energy, and concentration for the past one week. She stated that when the relationship ended she decided to take the box tender to end her life. She also reported she drank a good amount of whiskey last night. Patient currently has suicidal ideations with depressed mood. She currently denies auditory hallucinations, visual hallucinations, and paranoid ideations.? Per chart review: None ? On 6B: Ms. Méndez states she was diagnosed with depression in [...] went to the store and bought a box tender, bought liquor, drank it then went home [...] was admitted (more content not included)... [facility] 11-10-2020 Note Problem: Routine Car e: Goal: Patient care will be managed and maintained throughout hospital stay per unit specific routine care procedure Note: Pt appeared to have slept this shift without disturbance. Continue and maintain Q15 min checks for safety. [facility] 11-09-2020 Note Pharmacy Psychoeduca tion Group Ms. Méndez attended the pharmacy psychoeducation group today for 45 minutes. The group discussed adherence, barriers to adherence, and methods to overcome the barriers. Ms. Méndez did not participate voluntarily but did answer when called upon. Her answers were mostly 1 or 2 words and she did not make eye contact with me. She did not interact with the other group members. Ms. Méndez did complete the worksheet that was passed out for each group participant. Kimberlyn Armendariz, [facility], PharmD, BCPP Ext [phone] [facility] 11-06-2020 Note PROCEDURE NOTE: LACE RATION REPAIR [...] site. The patient tolerated the procedure well. Soon Vasquez, DO 11/06/2020 5:22 AM Resident PGY-2 Teaching [...] and Emergency General Surgery Department of Surgery [facility] Pager [phone] [facility] Evaluation note Diagnosis Encounter for weight management [facility] Diagnosis Weight gain Other symptoms concerning nutrition, metabolism, and development Encounter for weight management [facility] Diagnosis Well woman exam with routine gynecological exam Routine gynecological examination Encounter for weight management Anxiety and depression (CMS/HCC) documented [facility] Diagnosis Weight gain Other symptoms concerning nutrition, metabolism, and development Encounter for weight management documented in this encounter [facility] Summary Purpose Family History No Family History [...] section and content) DATE CREATED AUTHOR 08/16/2020 [facility] DATE CREATED AUTHOR AUTHOR'S ORGANIZ ATION 06/15/2021 [facility] DATE CREATED AUTHOR AUTHOR'S ORGANIZ ATION 06/28/2021 [facility] DATE CREATED AUTHOR AUTHOR'S ORGANIZ ATION 12/24/2021 [facility] DATE CREATED AUTHOR AUTHOR'S ORGANIZ ATION 01/26/2022 [facility] DATE CREATED AUTHOR AUTHOR'S ORGANIZ ATION 05/07/2024 [facility] EPIC Care Teams (unrecognized sec tion and content) [employer] Relationship Specialty Start Date End Date Bobby Bradford MD [address] [facility] [place] [address] PCP - General Family Medicine 02/05/24 [employer] Relationship Specialty Start Date End Date Bobby Bradford MD [address] [facility] [place] [address] PCP - General Family Medicine 02/05/24 [employer] Relationship Specialty Start Date End Date Bobby Bradford MD [address] [facility] [place] [address] PCP - General Family Medicine 02/05/24 [employer] Relationship Specialty Start Date End Date Bobby Bradford MD [address] [facility] [place] [address] PCP - General Family Medicine 02/05/24 [employer] Relationship Specialty Start Date End Date Bobby Bradford MD [address] [facility] [address] PCP - General Family Medicine 02/05/24 [employer] Relationship Specialty Start Date End Date Bobby Bradford MD [address] [facility] [place] [address] PCP - General Family Medicine 02/05/24 [employer] Relationship Specialty Start Date End Date Bobby Bradford MD [address] [facility] [place] [address] PCP - General Family Medicine 02/05/24 [employer] Relationship Specialty Start Date End Date Bobby Bradford MD [address] [place] [address] PCP - General Family Medicine 02/05/24 Reason for Visit (unrecogniz ed section and content) Reason Comments Weight Management Reason Comments Weight Management Adipex #2 Reason Comments Well Women Visit Reason Comments Weight Management Pt present today for Adipex #3 FOR RECORDS PERTAINING TO PATIENTS WHO ARE [...] BE BASED ON THE PRIMARY CLINICAL RECORDS. [employer] provides no warranty or guarantee of the accuracy or completeness of information in this document.
--- NOTE | 2024-06-28 15:47 | XR_ITS ---
[facility] [place] [id number] Patient Name: DELMI JOHNSON MRN: [id number] date: 1995 Sex: F Assigned Patient Location: [facility] Current Patient Location: Accession/Order Number: [id number] Exam Date: 06/28/2024 15:38 Report Date: 07/01/2024 08:20 At the request of: BOBBY DAWSON Procedure: XR lumbar spine min 4V EXAMINATION: XR lumbar spine min 4V HISTORY: Lumbar Radiculopathy, M54.16 COMPARISON: No relevant comparison available. FINDINGS: BONES: Normal. No significant spondylosis, scoliosis, fracture, or visible bony lesion. DISC SPACES: Normal. No significant disc height narrowing, subluxation, or endplate abnormality. PARASPINOUS: Negative. No paraspinous abnormality is seen. OTHER: Negative. XR/XR lumbar spine min 4V IMPRESSION: No acute abnormality Electronically authenticated by: NICK JOSEPH Date: 07/01/2024 08:20
== END 2024-06-28 15:26 | disposition home or self-care (01) ==
PROVIDERS: PCP Family Medicine; Visit Provider Family Medicine
DX: M54.16 Radiculopathy, lumbar region (principal)
CPT/HCPCS: 72110

== ENCOUNTER 2025-03-04 15:31 | Outpatient (REF) | payer BC, SELFPAY ==
--- OUTSIDE RECORDS SUMMARY | 2025-03-04 15:35 | XMS_ITS | CCD ---
Author Organization [facility] Care Team Providers Care Brake Machine Operator Name Role Phone CONSULT, IP PSYCHIATRIC ADULT Consulting Un available BOBBY BRADFORD Primary Care Unavailable ENEDELIA ARAGON Admitting UnavailENEDELIA Edwards Attending UnavailMATT Porter Referring Unavailable REQUEST, IP OPTICAL LABORATORY MANAGER SERVICE Consul nasima Unavailable PROVIDER, UNKNOWN [...] Unavailable Bobby Bradford MD Primary Care Provider [phone] LUIZ FLANAGAN Attending Unavailable LUIZ FLANAGAN Attending Unavailable RACHEL ZAIDI Attending Unavailable RACHEL [...] GDLNon AGE GDLN ACOG TESTING Note . [facility] Comment on above: TESTS RESULT FLAG UN ITS REF RANGE LAB Clinician Provided Cytology Information Source.............Cervix;Endocervix No. of containers..01 ThinPrep Vial Age Algo ACOG Suzy... -21 06 FLAG LEGEND: L-Low Normal,H-High Normal,LL-Alert Low,HH-Alert High <-Panic Low,>-Panic High,A-Abnormal,AA-Critical Abnormal Performed at: 01 =G [facility] [address] [place] [address] Tana Echevarria MD, IGP, RFX APTIMA HPV ASCU Note . [facility] Comment on above: TESTS RESULT FLAG UN ITS REF RANGE LAB DIAGNOSIS: 02 NEGATIVE FOR INTRAEPITHELIAL LESION OR MALIGNANCY. Specimen adequacy: 02 Satisfactory for evaluation. Endocervical and/or squamous metaplastic cells (endocervical component) are present. Performed by: 02 Brenton Vera Business Development Officer ([facility]) . 02 Note: Note 02 The Pap [...] High,A-Abnormal,AA-Critical Abnormal Performed at: 02 WB [facility] [address] [place] [address] Tana Echevarria MD, Performed at: =G - [facility] [address], [place] [id number] Soft Work Cigar Machine Operator: Tana Echevarria MD, Phone: [phone] Performed at: WB - [facility] [address] [place], [place] [id number] Soft Work Cigar Machine Operator: Tana Echevarria MD, Phone: [phone] [facility] Cervical or vaginal smear or scraping studyon 02-05-2024 [facility] CBC with Diffon 01-25-2022 Abs. Basophil 0.11 k/uL Normal 0.00-0.20 [facility] Comment on above: Performed By: #### C DP, CMPX #### [facility] [address] [place] [address] [place] [address] Soft Work Cigar Machine Operator: Earl Izquierdo MD Abs.Imm.Granulocyte 0.10 k/uL Normal 0.00-0.30 [facility] Comment on above: Performed By: #### C DP, CMPX #### [facility] [address] [place], [place] [address]83 Soft Work Cigar Machine Operator: Earl Izquierdo MD Abs.Neutrophil (Seg) 7.04 k/uL Normal 1.50-8.10 [facility] Comment on above: Performed By: #### C DP, CMPX #### [address] [place] [address] Soft Work Cigar Machine Operator: Earl Izquierdo MD Basophils/100 WBC (Bld) 1 % Normal 0-2 [facility] Comment on above: Performed By: #### C DP, CMPX #### [facility] [address] [place] [address] Soft Work Cigar Machine Operator: Earl Izquierdo MD Eosinophils (Bld) [#/Vol] 0.48 10*3/uL High 0.00-0.44 [facility] Comment on above: Performed By: #### C DP, CMPX #### [facility] [address] [place], [place] [address] Soft Work Cigar Machine Operator: Earl Izquierdo MD Eosinophils/100 WBC (Bld) 4 % Normal 1-4 [facility] Comment on above: Performed By: #### C DP, CMPX #### [address] [place], [place] [phone] Soft Work Cigar Machine Operator: Earl Izquierdo MD Erythrocyte distribution width (RBC) [Ratio] 16.3 % High 11.8-14.4 [facility] Comment on above: Performed By: #### C DP, CMPX #### [address] [place], [place] [id number] Soft Work Cigar Machine Operator: Earl Izquierdo MD Hematocrit (Bld) [Volume fraction] 41.0 % Normal 36.3-47.1 [facility] Comment on above: Performed By: #### C DP, CMPX #### [address] [place], [facility]83 Soft Work Cigar Machine Operator: Earl Izquierdo MD Hemoglobin (Bld) [Mass/Vol] 12.6 g/dL Normal 11.9-15.1 [facility] Comment on above: Performed By: #### C DP, CMPX #### [address] [place], [place] [id number] Soft Work Cigar Machine Operator: Earl Izquierdo MD Immature granulocytes/100 WBC (Bld) 1 % High 0 [facility] Comment on above: Performed By: #### C DP, CMPX #### [address] [place], [place] [address]83 Soft Work Cigar Machine Operator: Earl Izquierdo MD Lymphocytes (Bld) [#/Vol] 4.07 10*3/uL High 1.10-3.70 [facility] Comment on above: Performed By: #### C DP, CMPX #### [address] [place] [address] Soft Work Cigar Machine Operator: Earl Izquierdo MD Lymphocytes/100 WBC (Bld) 31 % Normal 24-43 [facility] Comment on above: Performed By: #### C DP, CMPX #### [facility] [address] [place] [address] Soft Work Cigar Machine Operator: Earl Izquierdo MD MCH (RBC) [Entitic mass] 27.9 pg Normal 25.2-33.5 [facility] Comment on above: Performed By: #### C DP, CMPX #### [facility] [address] [place] [address] Soft Work Cigar Machine Operator: Earl Izquierdo MD MCHC (RBC) [Mass/Vol] 30.7 g/dL Normal 28.4-34.8 [facility] Comment on above: Performed By: #### C DP, CMPX #### [address] [place] [address] Soft Work Cigar Machine Operator: Earl Izquierdo MD MCV (RBC) [Entitic vol] 90.9 fL Normal 82.6-102.9 [facility] Comment on above: Performed By: #### C DP, CMPX #### [address] [place] [address] Soft Work Cigar Machine Operator: Earl Izquierdo MD Monocytes (Bld) [#/Vol] 1.19 10*3/uL Normal 0.10-1.20 [facility] Comment on above: Performed By: #### C DP, CMPX #### [address] [place] [address] Soft Work Cigar Machine Operator: Earl Izquierdo MD Monocytes/100 WBC (Bld) 9 % Normal 3-12 [facility] Comment on above: Performed By: #### C DP, CMPX #### [facility] [address] [place] [address] Soft Work Cigar Machine Operator: Earl Izquierdo MD Neutrophil (Seg) 54 % Normal 36-65 [facility] Comment on above: Performed By: #### C DP, CMPX #### [facility] [address] [place], [place] 4638883 Soft Work Cigar Machine Operator: Earl Izquierdo MD NRBC Automated 0.0 per 100 WBC Normal 0.0 [facility] Comment on above: Performed By: #### C DP, CMPX #### [facility] [address] [place], [facility]83 Soft Work Cigar Machine Operator: Earl Izquierdo MD Platelet mean volume (Bld) [Entitic vol] 10.0 fL Normal 8.1-13.5 [facility] Comment on above: Performed By: #### C DP, CMPX #### [facility] [address] [place], [place] 4904383 Soft Work Cigar Machine Operator: Earl Izquierdo MD Platelets (Bld) [#/Vol] 383 10*3/uL Normal 138-453 [facility] Comment on above: Performed By: #### C DP, CMPX #### [address] [place], [place] 356[address]83 Soft Work Cigar Machine Operator: Earl Izquierdo MD RBC (Bld) [#/Vol] 4.51 10*6/uL Normal 3.95-5.11 [facility] Comment on above: Performed By: #### C DP, CMPX #### [address] [place], [place] [address] Soft Work Cigar Machine Operator: Earl Izquierdo MD WBC (Bld) [#/Vol] 13.0 10*3/uL High 3.5-11.3 [facility] Comment on above: Performed By: #### C DP, CMPX #### [facility] [address] [place] [address] Soft Work Cigar Machine Operator: Earl Izquierdo MD Comp Metabolic Pr/rfx MGon 0 01-25-2022 (cont.) Normal [facility] Comment on above: Result Comment: Aver age GFR for 20-29 years old: 116 mL/min/1.73sq m Chronic Kidney Disease: <60 mL/min/1.73sq m Kidney failure: <15 mL/min/1.73sq m eGFR calculated using average adult body mass. Additional eGFR calculator available at: http://www.[employer]/multiple_crcl_2012.htm Performed By: #### C DP, CMPX #### [facility] [address] [place], [place] [address]489[address] Soft Work Cigar Machine Operator: Earl Izquierdo MD Albumin [Mass/Vol] 3.7 g/dL Normal 3.5-5.2 [facility] Comment on above: Performed By: #### C DP, CMPX #### [facility] [address] [place] [address] [place] [place], [place] 0[address]83 Soft Work Cigar Machine Operator: Earl Izquierdo MD Albumin/Glob Ratio 1.6 Normal 1.0-2.5 [facility] Comment on above: Performed By: #### C DP, CMPX #### [facility] [address] [place], [place] 978[address]83 Soft Work Cigar Machine Operator: Earl Izquierdo MD Alkaline Phos 55 U/L Normal 35-104 [facility] Comment on above: Performed By: #### C DP, CMPX #### [facility] [address] [place] [address] [place] [address] Soft Work Cigar Machine Operator: Earl Izquierdo MD ALT [Catalytic activity/Vol] 11 U/L Normal 5-33 [facility] Comment on above: Performed By: #### C DP, CMPX #### [facility] [address] [place], [place] 68[address]83 Soft Work Cigar Machine Operator: Earl Izquierdo MD Anion gap [Moles/Vol] 8 mmol/L Low 9-17 [facility] Comment on above: Performed By: #### C DP, CMPX #### [facility] [address] [place], [place] 449[address]83 Soft Work Cigar Machine Operator: Earl Izquierdo MD AST [Catalytic activity/Vol] 11 U/L Normal <32 [facility] Comment on above: Performed By: #### C DP, CMPX #### [facility] [address] [place] [address] Soft Work Cigar Machine Operator: Earl Izquierdo MD Bilirubin [Mass/Vol] 0.2 mg/dL Low 0.3-1.2 [facility] Comment on above: Performed By: #### C DP, CMPX #### [facility] [address] [place] [address] Soft Work Cigar Machine Operator: Earl Izquierdo MD BUN/CRE Ratio 12 Normal 9-20 [facility] Comment on above: Performed By: #### C DP, CMPX #### [facility] [address] [place] [address] Soft Work Cigar Machine Operator: Earl Izquierdo MD Calcium [Mass/Vol] 8.6 mg/dL Normal 8.6-10.4 [facility] Comment on above: Performed By: #### C DP, CMPX #### [facility] [address] [place], [place] 5432783 Soft Work Cigar Machine Operator: Earl Izquierdo MD Chloride [Moles/Vol] 107 mmol/L Normal 98-107 [facility] Comment on above: Performed By: #### C DP, CMPX #### [facility] [address] [place], [place] 407[address]83 Soft Work Cigar Machine Operator: Earl Izquierdo MD CO2 [Moles/Vol] 26 mmol/L Normal 20-31 [facility] Comment on above: Performed By: #### C DP, CMPX #### [facility] [address] [place] [address] Soft Work Cigar Machine Operator: Earl Izquierdo MD Creatinine [Mass/Vol] 0.68 mg/dL Normal 0.50-0.90 [facility] Comment on above: Performed By: #### C DP, CMPX #### [facility] [address] [place], [place] [address]84[address]83 Soft Work Cigar Machine Operator: Earl Izquierdo MD GFR, Amer >60 Normal >60 [facility] Comment on above: Performed By: #### C DP, CMPX #### [facility] [address] [place], [place] 9497383 Soft Work Cigar Machine Operator: Earl Izquierdo MD GFR,non Amer >60 Normal >60 [facility] Comment on above: Performed By: #### C DP, CMPX #### [facility] [address] [place], [place] 320[address]83 Soft Work Cigar Machine Operator: Earl Izquierdo MD Glucose [Mass/Vol] 95 mg/dL Normal 70-99 [facility] Comment on above: Performed By: #### C DP, CMPX #### [facility] [address] [place], [place] 507[address]83 Soft Work Cigar Machine Operator: Earl Izquierdo MD Potassium [Moles/Vol] 4.0 mmol/L Normal 3.7-5.3 [facility] Comment on above: Performed By: #### C DP, CMPX #### [facility] [address] [place] [address] [place] [place], [place] 1089883 Soft Work Cigar Machine Operator: Earl Izquierdo MD Protein [Mass/Vol] 6.0 g/dL Low 6.4-8.3 [facility] Comment on above: Performed By: #### C DP, CMPX #### [facility] [address] [place], [place] 7666283 Soft Work Cigar Machine Operator: Earl Izquierdo MD Sodium [Moles/Vol] 141 mmol/L Normal 135-144 [facility] Comment on above: Performed By: #### C DP, CMPX #### [facility] [address] [place], [place] 8618283 Soft Work Cigar Machine Operator: Earl Izquierdo MD Staging: Normal [facility] Comment on above: Result Comment: Stag e 1: Some kidney damage normal GFR Stage 2: Mild kidney damage GFR 60-89 Stage 3: Moderate kidney damage GFR 30-59 Stage 4: Severe kidney damage GFR 15-29 Stage 5: Severe kidney damage GFR <15 ESRD - chronic treatment by dialysis or transplant Performed By: #### C DP, CMPX #### [facility] [address] [place] [address] [place] [place], [place] 9089183 Soft Work Cigar Machine Operator: Earl Izquierdo MD Urea nitrogen [Mass/Vol] 8 mg/dL Normal 6-20 [facility] Comment on above: Performed By: #### C DP, CMPX #### [address] [place], [facility]83 Soft Work Cigar Machine Operator: Earl Izquierdo MD Acetaminophenon 01-24-2022 Acetaminophen [Mass/Vol] ug/mL Low 10-30 [facility] Comment on above: Performed By: #### C DP, CMPX #### [facility] [address] [place] [address] Dr. [place], [facility]83 Soft Work Cigar Machine Operator: Earl Izquierdo MD CBC with Diffon 01-24-2022 Abs. Basophil 0.12 k/uL Normal 0.00-0.20 [facility] Comment on above: Performed By: #### C DP, CP #### [address] [place], [place] 9820483 Soft Work Cigar Machine Operator: Earl Izquierdo MD Abs.Imm.Granulocyte 0.05 k/uL Normal 0.00-0.30 [facility] Comment on above: Performed By: #### C DP, CP #### [facility] [address] [place] [address] [place]. [place], [place] 069[address]83 Soft Work Cigar Machine Operator: Earl Izquierdo MD Abs.Neutrophil (Seg) 7.91 k/uL Normal 1.50-8.10 [facility] Comment on above: Performed By: #### C DP, CP #### [address] [place], [place] 8749883 Soft Work Cigar Machine Operator: Earl Izquierdo MD Basophils/100 WBC (Bld) 1 % Normal 0-2 [facility] Comment on above: Performed By: #### C DP, CP #### [facility] [address] [place] [address] [place] [address] Soft Work Cigar Machine Operator: Earl Izquierdo MD Eosinophils (Bld) [#/Vol] 0.46 10*3/uL High 0.00-0.44 [facility] Comment on above: Performed By: #### C DP, CP #### [address] [place], [place] [address]77[address]83 Soft Work Cigar Machine Operator: Earl Izquierdo MD Eosinophils/100 WBC (Bld) 4 % Normal 1-4 [facility] Comment on above: Performed By: #### C DP, CP #### [address] [place], [place] 322[address]83 Soft Work Cigar Machine Operator: Earl Izquierdo MD Erythrocyte distribution width (RBC) [Ratio] 15.9 % High 11.8-14.4 [facility] Comment on above: Performed By: #### C DP, CP #### [address] [place] [address] Soft Work Cigar Machine Operator: Earl Izquierdo MD Hematocrit (Bld) [Volume fraction] 45.7 % Normal 36.3-47.1 [facility] Comment on above: Performed By: #### C DP, CP #### [address] [place] [address] Soft Work Cigar Machine Operator: Earl Izquierdo MD Hemoglobin (Bld) [Mass/Vol] 14.5 g/dL Normal 11.9-15.1 [facility] Comment on above: Performed By: #### C DP, CP #### [address] [place] [address] Soft Work Cigar Machine Operator: Earl Izquierdo MD Immature granulocytes/100 WBC (Bld) 0 % Normal 0 [facility] Comment on above: Performed By: #### C DP, CP #### [facility] [address] [place], [facility]83 Soft Work Cigar Machine Operator: Earl Izquierdo MD Lymphocytes (Bld) [#/Vol] 3.57 10*3/uL Normal 1.10-3.70 [facility] Comment on above: Performed By: #### C DP, CP #### [facility] [address] [place], [place] [address] Soft Work Cigar Machine Operator: Earl Izquierdo MD Lymphocytes/100 WBC (Bld) 27 % Normal 24-43 [facility] Comment on above: Performed By: #### C DP, CP #### [address] [place], [facility]83 Soft Work Cigar Machine Operator: Earl Izquierdo MD MCH (RBC) [Entitic mass] 28.0 pg Normal 25.2-33.5 [facility] Comment on above: Performed By: #### C DP, CP #### [address] [place], [facility]83 Soft Work Cigar Machine Operator: Earl Izquierdo MD MCHC (RBC) [Mass/Vol] 31.7 g/dL Normal 28.4-34.8 [facility] Comment on above: Performed By: #### C DP, CP #### [address] [place], [facility]83 Soft Work Cigar Machine Operator: Earl Izquierdo MD MCV (RBC) [Entitic vol] 88.2 fL Normal 82.6-102.9 [facility] Comment on above: Performed By: #### C DP, CP #### [address] [place] [address] Soft Work Cigar Machine Operator: Earl Izquierdo MD Monocytes (Bld) [#/Vol] 0.94 10*3/uL Normal 0.10-1.20 [facility] Comment on above: Performed By: #### C DP, CP #### [facility] [address] [place], [place] 7113683 Soft Work Cigar Machine Operator: Earl Izquierdo MD Monocytes/100 WBC (Bld) 7 % Normal 3-12 [facility] Comment on above: Performed By: #### C DP, CP #### [facility] [address] [place], [place] 096[address]83 Soft Work Cigar Machine Operator: Earl Izquierdo MD Neutrophil (Seg) 61 % Normal 36-65 [facility] Comment on above: Performed By: #### C DP, CP #### [facility] [address] [place], [place] 9877783 Soft Work Cigar Machine Operator: Earl Izquierdo MD NRBC Automated 0.0 per 100 WBC Normal 0.0 [facility] Comment on above: Performed By: #### C DP, CP #### [address] [place], [facility]83 Soft Work Cigar Machine Operator: Earl Izquierdo MD Platelet mean volume (Bld) [Entitic vol] 9.6 fL Normal 8.1-13.5 [facility] Comment on above: Performed By: #### C DP, CP #### [address] [place], [place] 179[address] Soft Work Cigar Machine Operator: Earl Izquierdo MD Platelets (Bld) [#/Vol] 445 10*3/uL Normal 138-453 [facility] Comment on above: Performed By: #### C DP, CP #### [facility] [address] [place] [address] [place] [address] Soft Work Cigar Machine Operator: Earl Izquierdo MD RBC (Bld) [#/Vol] 5.18 10*6/uL High 3.95-5.11 [facility] Comment on above: Performed By: #### C DP, CP #### [address] [place], [place] 2908483 Soft Work Cigar Machine Operator: Earl Izquierdo MD WBC (Bld) [#/Vol] 13.1 10*3/uL High 3.5-11.3 [facility] Comment on above: Performed By: #### C ALLAN, CP #### [facility] [address] [place], [place] 8445483 Soft Work Cigar Machine Operator: Earl Izquierdo MD Comp Metabolic Profon 2021 (cont.) Normal [facility] Comment on above: Result Comment: Aver age GFR for 20-29 years old: 116 mL/min/1.73sq m Chronic Kidney Disease: <60 mL/min/1.73sq m Kidney failure: <15 mL/min/1.73sq m eGFR calculated using average adult body mass. Additional eGFR calculator available at: http://www.[employer]/multiple_crcl_2011.htm Performed By: #### C ALLAN, CP #### [facility] [address] [place] [address] [place] [place], [place] 477[address]83 Soft Work Cigar Machine Operator: Earl Izquierdo MD Albumin [Mass/Vol] 4.9 g/dL Normal 3.5-5.2 [facility] Comment on above: Performed By: #### C ALLAN, CP #### [facility] [address] [place] [address] [place] [place], [place] 5264583 Soft Work Cigar Machine Operator: Earl Izquierdo MD Albumin/Glob Ratio 1.8 Normal 1.0-2.5 [facility] Comment on above: Performed By: #### C ALLAN, CP #### [facility] [address] [place], [place] 1653983 Soft Work Cigar Machine Operator: Earl Izquierdo MD Alkaline Phos 67 U/L Normal 35-104 [facility] Comment on above: Performed By: #### C ALLAN, CP #### [facility] [address] [place] [address] Soft Work Cigar Machine Operator: Earl Izquierdo MD ALT [Catalytic activity/Vol] 14 U/L Normal 5-33 [facility] Comment on above: Performed By: #### C DP, CP #### [facility] [address] [place], [place] 5178183 Soft Work Cigar Machine Operator: Earl Izquierdo MD Anion gap [Moles/Vol] 11 mmol/L Normal 9-17 [facility] Comment on above: Performed By: #### C DP, CP #### [facility] [address] [place], [place] 6548683 Soft Work Cigar Machine Operator: Earl Izquierdo MD AST [Catalytic activity/Vol] 18 U/L Normal <32 [facility] Comment on above: Performed By: #### C DP, CP #### [facility] [address] [place], [place] 925[address]83 Soft Work Cigar Machine Operator: Earl Izquierdo MD Bilirubin [Mass/Vol] 0.2 mg/dL Low 0.3-1.2 [facility] Comment on above: Performed By: #### C DP, CP #### [facility] [address] [place], [place] 6726383 Soft Work Cigar Machine Operator: Earl Izquierdo MD BUN/CRE Ratio 7 Low 9-20 [facility] Comment on above: Performed By: #### C DP, CP #### [facility] [address] [place], [place] 520[address]83 Soft Work Cigar Machine Operator: Earl Izquierdo MD Calcium [Mass/Vol] 9.5 mg/dL Normal 8.6-10.4 [facility] Comment on above: Performed By: #### C DP, CP #### [facility] [address] [place], [place] 4554183 Soft Work Cigar Machine Operator: Earl Izquierdo MD Chloride [Moles/Vol] 106 mmol/L Normal 98-107 [facility] Comment on above: Performed By: #### C DP, CP #### [facility] [address] [place], [place] 0338783 Soft Work Cigar Machine Operator: Earl Izquierdo MD CO2 [Moles/Vol] 25 mmol/L Normal 20-31 [facility] Comment on above: Performed By: #### C DP, CP #### [facility] [address] [place] [address] Soft Work Cigar Machine Operator: Earl Izquierdo MD Creatinine [Mass/Vol] 0.74 mg/dL Normal 0.50-0.90 [facility] Comment on above: Performed By: #### C DP, CP #### [facility] [address] [place], [place] 7657083 Soft Work Cigar Machine Operator: Earl Izquierdo MD GFR, Amer >60 Normal >60 [facility] Comment on above: Performed By: #### C DP, CP #### [facility] [address] [place], [place] 1598483 Soft Work Cigar Machine Operator: Earl Izquierdo MD GFR,non Amer >60 Normal >60 [facility] Comment on above: Performed By: #### C DP, CP #### [facility] [address] [place], [place] 0593683 Soft Work Cigar Machine Operator: Earl Izquierdo MD Glucose [Mass/Vol] 95 mg/dL Normal 70-99 [facility] Comment on above: Performed By: #### C DP, CP #### [facility] [address] [place], [place] 086[address]83 Soft Work Cigar Machine Operator: Earl Izquierdo MD Potassium [Moles/Vol] 3.6 mmol/L Low 3.7-5.3 [facility] Comment on above: Performed By: #### C DP, CP #### [facility] [address] [place], [place] 8833883 Soft Work Cigar Machine Operator: Earl Izquierdo MD Protein [Mass/Vol] 7.7 g/dL Normal 6.4-8.3 [facility] Comment on above: Performed By: #### C DP, CP #### [facility] [address] [place] [address] [place] [place], [place] [phone] Soft Work Cigar Machine Operator: Earl Izquierdo MD Sodium [Moles/Vol] 142 mmol/L Normal 135-144 [facility] Comment on above: Performed By: #### C DP, CP #### [address] [place], [facility]83 Soft Work Cigar Machine Operator: Earl Izquierdo MD Staging: Normal [facility] Comment on above: Result Comment: Stag e 1: Some kidney damage normal GFR Stage 2: Mild kidney damage GFR 60-89 Stage 3: Moderate kidney damage GFR 30-59 Stage 4: Severe kidney damage GFR 15-29 Stage 5: Severe kidney damage GFR <15 ESRD - chronic treatment by dialysis or transplant Performed By: #### C DP, CP #### [address] Schneider, [facility]83 Soft Work Cigar Machine Operator: Earl Izquierdo MD Urea nitrogen [Mass/Vol] 5 mg/dL Low 6-20 [facility] Comment on above: Performed By: #### C DP, CP #### [address] [place], [facility]83 Soft Work Cigar Machine Operator: Earl Izquierdo MD Drug Scr, Abuse, Uron 2021 Amphetamine(s),Ur Negative Normal NEG [facility] Comment on above: Performed By: #### U HCG, UA, ARCENIO #### [address] Schneider, [facility]83 Soft Work Cigar Machine Operator: Earl Izquierdo MD Barbiturate(s),Ur Negative Normal NEG [facility] Comment on above: Performed By: #### U HCG, UA, ARCENIO #### [address] [place], [facility]83 Soft Work Cigar Machine Operator: Earl Izquierdo MD Benzodiazepine(s) Negative Normal NEG [facility] Comment on above: Performed By: #### U HCG, UA, ARCENIO #### [facility] [address] [place] [address] Dr. Schneider, [place] [id number] Soft Work Cigar Machine Operator: Earl Izquierdo MD Buprenorphrine, Ur Negative Normal [facility] Comment on above: Performed By: #### U HCG, UA, ARCENIO #### [facility] [address] [place], [place] [id number] Soft Work Cigar Machine Operator: Earl Izquierdo MD Cannabinoid(s),Ur Positive Abnormal NEG [facility] Comment on above: Performed By: #### U HCG, UA, ARCENIO #### [facility] [address] [place] [address] [place] [address] Soft Work Cigar Machine Operator: Earl Izquierdo MD Cocaine Metabolite Negative Normal [facility] Comment on above: Performed By: #### U HCG, UA, ARCENIO #### [address] Schneider, [place] [phone] Soft Work Cigar Machine Operator: Earl Izquierdo MD Methadone Ql (U) Negative Normal [facility] Comment on above: Performed By: #### U HCG, UA, ARCENIO #### [address] [place], [place] [phone] Soft Work Cigar Machine Operator: Earl Izquierdo MD Methamphetamine, Ur Negative Normal [facility] Comment on above: Performed By: #### U HCG, UA, ARCENIO #### [facility] [address] [place] [address] Dr. Schneider, [place] [phone] Soft Work Cigar Machine Operator: Earl Izquierdo MD Opiate(s), Ur Negative Normal [facility] Comment on above: Performed By: #### U HCG, UA, ARCENIO #### [facility] [address] [place] [address] Dr. [place], [place] [id number] Soft Work Cigar Machine Operator: Earl Izquierdo MD Oxycodone, Urine Negative Normal [facility] Comment on above: Performed By: #### U HCG, UA, ARCENIO #### [facility] [address] [place] [address] Dr. Schneider, [place] [phone] Soft Work Cigar Machine Operator: Earl Izquierdo MD Phencyclidine, Ur Negative Normal NEG [facility] Comment on above: Performed By: #### U HCG, UA, ARCENIO #### [facility] [address] [place], [place] [phone] Soft Work Cigar Machine Operator: Earl Izquierdo MD Propoxyphene,Urine Negative Normal NEG [facility] Comment on above: Performed By: #### U HCG, UA, ARCENIO #### [facility] [address] [place], [place] [id number] Soft Work Cigar Machine Operator: Earl Izquierdo MD Tricyclic antidepressants Screen Ql (U) Negative Normal NEG [facility] Comment on above: Result Comment: Drug screen results are to be used for medical purposes only. All positive results are unconfirmed. Testing for employment or legal uses should be sent to a reference laboratory for confirmation. Performed By: #### U HCG, UA, ARCENIO #### [facility] [address] [place] [address] [place] [address] Soft Work Cigar Machine Operator: Earl Izquierdo MD Ethanol Alcoholon 01-24-2022 Ethanol [Mass/Vol] 158 mg/dL High <10 [facility] Comment on above: Performed By: #### A LCB #### [facility] [address] [place] [address] [place] [address] Soft Work Cigar Machine Operator: Earl Izquierdo MD Ethanol percent 0.158 % High <0.010 [facility] Comment on above: Performed By: #### A LCB #### [facility] [address] [place] [address] [place] [address] Soft Work Cigar Machine Operator: Earl Izquierdo MD HCG, ,Urineon 01-24 Beta HCG ( test) Ql (U) Negative Normal NEG [facility] Comment on above: Result Comment: Spec imens with hCG levels near the threshold of the test (25 mIU/mL) may give a negative or indeterminate result. In such cases, another test should be performed with a new specimen in 48-72 hours. If early is suspected clinically in this setting, correlation with quantitative serum b-hCG level is suggested. [facility] has confirmed the use of plasma for this test. This has not been cleared or approved by the [place]. Food and Drug Administration. The FDA has determined that such clearance is not necessary. Performed By: #### U HCG, UA, ARCENIO #### [facility] [address] [place] [address] Soft Work Cigar Machine Operator: Earl Izquierdo MD [id number] 01-24-2022 SARS-CoV-2 (COVID-19) RNA ALEA+probe Ql (Unsp spec) Not detected Normal NOTDET [facility] Comment on above: Result Comment: Rapid [...] management decisions. Fact sheet for Healthcare Providers: https://www.fda.gov/media/387544/download Fact sheet for Patients: https://www.fda.gov/media/470924/download Methodology: Isothermal Nucleic Acid Amplification Performed By: #### C OVRB #### [facility] [address] [place] [address] Soft Work Cigar Machine Operator: Earl Izquierdo MD Salicylateon 01-24-2022 Salicylate <1 Low 3-10 [facility] Comment on above: Performed By: #### S ALI #### [facility] [address] [place] [address] Soft Work Cigar Machine Operator: Earl Izquierdo MD Urinalysis, Routineon 2021 Bilirubin, SemiQt,Ur Negative Normal NEG [facility] Comment on above: Performed By: #### U HCG, UA, ARCENIO #### [facility] [address] [place], [place] [phone] Soft Work Cigar Machine Operator: Earl Izquierdo MD Blood, Urine Negative Normal NEG [facility] Comment on above: Performed By: #### U HCG, UA, ARCENIO #### [facility] [address] [place], [place] [phone] Soft Work Cigar Machine Operator: Earl Izquierdo MD Clarity (U) Clear Normal CLEAR [facility] Comment on above: Performed By: #### U HCG, UA, ARCENIO #### [facility] [address] [place], [place] [id number] Soft Work Cigar Machine Operator: Earl Izquierdo MD Color (U) Yellow Normal YEL [facility] Comment on above: Performed By: #### U HCG, UA, ARCENIO #### [facility] [address] [place] [address] Dr. [place], [place] [phone] Soft Work Cigar Machine Operator: Earl Izquierdo MD Glucose Ql (U) Negative Normal NEG [facility] Comment on above: Performed By: #### U HCG, UA, ARCENIO #### [address] [place], [place] [phone] Soft Work Cigar Machine Operator: Earl Izquierdo MD Ketones Ql (U) Negative Normal NEG [facility] Comment on above: Performed By: #### U HCG, UA, ARCENIO #### [facility] [address] [place], [place] [phone] Soft Work Cigar Machine Operator: Earl Izquierdo MD Leukocyte esterase Test strip Ql (U) Negative Normal NEG [facility] Comment on above: Performed By: #### U HCG, UA, ARCENIO #### [facility] [address] [place], [place] [phone] Soft Work Cigar Machine Operator: Earl Izquierdo MD Nitrite,Ur Negative Normal NEG [facility] Comment on above: Performed By: #### U HCG, UA, ARCENIO #### [facility] [address] [place] [address] Dr. [place], [place] [phone] Soft Work Cigar Machine Operator: Earl Izquierdo MD PH,Ur 6.5 Normal 5.0-9.0 [facility] Comment on above: Performed By: #### U HCG, UA, ARCENIO #### [facility] [address] [place] [address] [place] [address] Soft Work Cigar Machine Operator: Earl Izquierdo MD Protein Ql (U) Negative Normal NEG [facility] Comment on above: Performed By: #### U HCG, UA, ARCENIO #### [address] [place], [place] 9397083 Soft Work Cigar Machine Operator: Earl Izquierdo MD Spec. [place],Ur 1.015 Normal 1.010-1.020 [facility] Comment on above: Performed By: #### U HCG, UA, ARCENIO #### [address] [place], [facility]83 Soft Work Cigar Machine Operator: Earl Izquierdo MD Urobilinogen,Ur Normal Normal NORM [facility] Comment on above: Performed By: #### U HCG, UA, ARCENIO #### [facility] [address] [place] [address] Dr. [place], [place] [address] Soft Work Cigar Machine Operator: Earl Izquierdo MD CHLAMYDIA/GONOCOCCUS ALEA ( AB/URINE/PAPon 12-24-2021 Chlamydia trachomatis, ALEA Negative Normal Negative [facility] Comment on above: Performed By: #### C T/NGNA #### [facility] [address] [place] [address] Dr. Britany Martin Neisseria gonorrhoeae, ALEA Negative Normal Negative [facility] Comment on above: Performed By: #### C T/NGNA #### [facility] [address] [place] [address] Dr. Britany Martin PAP ACOG PANEL 2: 21 to 29on 12-24-2021 . . Normal [facility] Comment on above: Performed By: #### [id number] #### [facility] [address] [place] [address] Dr. Britany Martin Age Gdln ACOG Testing 21-29 [facility] Comment on above: Performed By: #### 4 [id number] #### [facility] [address] [place] [address] Dr. Britany Martin DIAGNOSIS: Comment [facility] Comment on above: Result Comment: NEGA TIVE FOR INTRAEPITHELIAL LESION OR MALIGNANCY. Performed By: #### 4 [id number] #### [facility] [address] [place] [address] Dr. Britany Martin Methodology: Comment [facility] Comment on above: Result Comment: This liquid based ThinPrep(R) pap test was screened with the use of an image guided system. Performed By: #### 4 [id number] #### [facility] [address] [place] [address] Dr. Britany Martin Note: Comment [facility] Comment on above: Result Comment: The Pap smear is a screening test designed to aid in the detection of premalignant and malignant conditions of the uterine cervix. It is not a diagnostic procedure and should not be used as the sole means of detecting cervical cancer. Both false-positive and false-negative reports do occur. . Performed By: #### 4 [id number] #### [facility] [address] [place] [address] Dr. Britany Martin Performed by: Comment Normal [facility] Comment on above: Result Comment: Afsaneh Wilhelm, Business Development Officer (ASCP) Performed By: #### 4 [id number] #### [facility] [address] [place] [address] Dr. Britany Martin Reflex Criteria: Comment [facility] Comment on above: Result Comment: The HPV DNA reflex criteria were not met with this specimen result therefore, no HPV testing was performed. . Performed By: #### 4 [id number] #### [facility] [address] [place] [address] Dr. Britany Martin Specimen adequacy: Comment Normal [facility] Comment on above: Result Comment: Sati sfactory for evaluation. Endocervical and/or squamous metaplastic cells (endocervical component) are present. Performed By: #### 4 [id number] #### [facility] [address] [place] [address] Dr. Britany Martin VAGINITIS/VAGINOSIS DNA PROB Clement 12-23-2021 Corina species Negative Normal Negative [facility] Comment on above: Performed By: #### V AGINT #### [facility] [address] [address] [address] Britany Martin Gardnerella vaginalis Negative Normal Negative [facility] Comment on above: Performed By: #### V AGINT #### [facility] [address] [place] [address] Dr. Britany Martin Trichomonas vaginalis Negative Normal Negative [facility] Comment on above: Performed By: #### V AGINT #### [facility] [address] [place] [address] Dr. Britany Martin Covid-19 PCR (CVDTBH)on SARS-CoV-2 (COVID-19) RNA ALEA+probe Ql (Unsp spec) Detected Critically abnormal NOT DETECTED [facility] Comment on above: Result Comment: This test is not yet approved or cleared by the [place] FDA. When there are no FDA-approved or cleared tests available, and other criteria are met, FDA can make tests available under an emergency access mechanism called an Emergency Use Authorization (EUA). The EUA for this test is supported by the Mitochondrial Disorders Counselor of Health and Human Service's (HHS's) declaration [...] used). Performed By: #### C VDTBH #### [facility] [address] [place] [address] Dr. Britany Martin Complete Blood Count Auto Di ffon 02-22-2021 Basophils (Bld) [#/Vol] 0.1 10*3/uL Normal 0.0-0.2 [facility] Comment on above: Result Comment: PERF ORMED BY: [place] [id number] PATHOLOGIST ASSURANCE SOURCING MANAGER MOHINI GOMEZ M.D. Performed By: #### C BC, CMP, ETOH #### [place] [address] [place] Basophils/100 WBC (Bld) 0.9 % Normal . [facility] Comment on above: Performed By: #### C BC, CMP, ETOH #### [address] Eosinophils (Bld) [#/Vol] 0.2 10*3/uL Normal 0.0-0.45 [facility] Comment on above: Performed By: #### C BC, CMP, ETOH #### [place] [address] [place] Eosinophils/100 WBC (Bld) 2.0 % Normal . [facility] Comment on above: Performed By: #### C BC, CMP, ETOH #### [address] Erythrocyte distribution width (RBC) [Ratio] 21.1 % High 11.9-15.3 [facility] Comment on above: Performed By: #### C BC, CMP, ETOH #### [place] [address] [place] Hematocrit (Bld) [Volume fraction] 32.6 % Low 34.0-46.4 [facility] Comment on above: Performed By: #### C BC, CMP, ETOH #### [place] [address] [place] Hemoglobin (Bld) [Mass/Vol] 10.3 g/dL Low 11.8-15.4 [facility] Comment on above: Performed By: #### C BC, CMP, ETOH #### [address] [place] [address] [place] Lymphocytes (Bld) [#/Vol] 2.9 10*3/uL Normal 1.00-4.8 [facility] Comment on above: Performed By: #### C BC, CMP, ETOH #### [facility] [address] [place] [address] [place] Lymphocytes/100 WBC (Bld) 25.2 % Normal . [facility] Comment on above: Performed By: #### C BC, CMP, ETOH #### [facility] [address] [place] [address] [place] MCH (RBC) [Entitic mass] 22.8 pg Low 24.7-34.3 [facility] Comment on above: Performed By: #### C BC, CMP, ETOH #### [facility] [address] [place] [address] [place] MCV (RBC) [Entitic vol] 71.9 fL Low 80-100 [facility] Comment on above: Performed By: #### C BC, CMP, ETOH #### [address] Mean Corpuscular HGB Conc 31.8 g/dL Low 32.0-35.0 [facility] Comment on above: Performed By: #### C BC, CMP, ETOH #### [facility] [address] [place] [address] [place] Monocytes (Bld) [#/Vol] 0.9 10*3/uL High 0.0-0.8 [facility] Comment on above: Performed By: #### C BC, CMP, ETOH #### [place] [address] [place] Monocytes/100 WBC (Bld) 7.8 % Normal . [facility] Comment on above: Performed By: #### C BC, CMP, ETOH #### [place] [address] [place] Neutrophils (Bld) [#/Vol] 7.3 10*3/uL Normal 1.8-7.7 [facility] Comment on above: Performed By: #### C BC, CMP, ETOH #### [facility] [address] [place] [address] [place] Neutrophils/100 WBC (Bld) 64.1 % Normal . [facility] Comment on above: Performed By: #### C BC, CMP, ETOH #### [facility] [address] Nucleated RBC/100 WBC (Bld) [Ratio] 0.0 % Normal 0-0.5 [facility] Comment on above: Performed By: #### C BC, CMP, ETOH #### [facility] [address] Platelet mean volume (Bld) [Entitic vol] 7.4 fL Normal 6.3-10.7 [facility] Comment on above: Performed By: #### C BC, CMP, ETOH #### [facility] [address] Platelets (Bld) [#/Vol] 494 10*3/uL High 150-450 [facility] Comment on above: Performed By: #### C BC, CMP, ETOH #### [place] [address] [place] RBC (Bld) [#/Vol] 4.53 10*6/uL Normal 3.60-5.00 [facility] Comment on above: Performed By: #### C BC, CMP, ETOH #### [facility] [address] [place] [address] [place] WBC (Bld) [#/Vol] 11.4 10*3/uL High 4.5-11.0 [facility] Comment on above: Performed By: #### C BC, CMP, ETOH #### [address] Comprehensive Metabolic Pane venus 02-22-2021 Albumin [Mass/Vol] 4.0 g/dL Normal 3.2-5.5 [facility] Comment on above: Performed By: #### C BC, CMP, ETOH #### [place] [address] [place] Albumin/Globulin [Mass ratio] 1.4 {ratio} Normal [facility] Comment on above: Performed By: #### C BC, CMP, ETOH #### [facility] [address] [place] [id number] [place] ALP [Catalytic activity/Vol] 61 U/L Normal 32-92 [facility] Comment on above: Performed By: #### C BC, CMP, ETOH #### [facility] [address] [place] [id number] [place] ALT [Catalytic activity/Vol] 20 U/L Normal 10-60 [facility] Comment on above: Performed By: #### C BC, CMP, ETOH #### [facility] [address] AST [Catalytic activity/Vol] 21 U/L Normal 10-42 [facility] Comment on above: Performed By: #### C BC, CMP, ETOH #### [facility] [address] Bilirubin [Mass/Vol] 0.4 mg/dL Normal 0.3-1.2 [facility] Comment on above: Performed By: #### C BC, CMP, ETOH #### [facility] [address] [place] [address] [place] Calcium [Mass/Vol] 9.4 mg/dL Normal 8.2-10.2 [facility] Comment on above: Performed By: #### C BC, CMP, ETOH #### [facility] [address] [place] [address] [place] Chloride [Moles/Vol] 102 mmol/L Normal 95-114 [facility] Comment on above: Performed By: #### C BC, CMP, ETOH #### [facility] [address] [place] [id number] [place] CO2 [Moles/Vol] 24.8 mmol/L Normal 22.0-30.0 [facility] Comment on above: Performed By: #### C BC, CMP, ETOH #### [facility] [address] [place] [id number] [place] Creatinine [Mass/Vol] 0.65 mg/dL Normal 0.44-1.03 [facility] Comment on above: Performed By: #### C BC, CMP, ETOH #### [address] Creatinine Clr Calc Pharmacy 177.86 [facility] Comment on above: Result Comment: PERF ORMED BY: [place] [id number] PATHOLOGIST ASSURANCE SOURCING MANAGER MOHINI GOMEZ M.D. Performed By: #### C BC, CMP, ETOH #### [address] Estimated GFR ( Verna > 60 [facility] Comment on above: Result Comment: GFR estimated reference range: According to KDOQI guidelines, <60 ml/min/1.73m2 is sufficient to diagnose a patient with chronic kidney disease. Performed By: #### C BC, CMP, ETOH #### [address] Estimated GFR (Non- Am > 60 [facility] Comment on above: Performed By: #### C BC, CMP, ETOH #### [address] Globulin (S) [Mass/Vol] 2.8 g/dL Normal [facility] Comment on above: Performed By: #### C BC, CMP, ETOH #### [address] Glucose [Mass/Vol] 89 mg/dL Normal 70-100 [facility] Comment on above: Result Comment: [place] Glucose Reference Range is dependent on time and content of last meal. Glucose of more than 200 mg/dL in a nonstressed, ambulatory subject supports the diagnosis of Diabetes Mellitus. ADA recommended reference range Performed By: #### C BC, CMP, ETOH #### [address] Potassium [Moles/Vol] 4.1 mmol/L Normal 3.5-5.1 [facility] Comment on above: Performed By: #### C BC, CMP, ETOH #### [place] [address] [place] Protein [Mass/Vol] 6.8 g/dL Normal 6.1-7.9 [facility] Comment on above: Performed By: #### C BC, CMP, ETOH #### [facility] [address] Sodium [Moles/Vol] 137 mmol/L Normal 136-146 [facility] Comment on above: Performed By: #### C BC, CMP, ETOH #### [facility] [address] Urea nitrogen [Mass/Vol] 8 mg/dL Low - [facility] Comment on above: Performed By: #### C BC, CMP, ETOH #### [facility] [address] [place] [address] [place] Dipstick and Microscopicon 1 Appearance (U) Clear Normal Clear [facility] Comment on above: Order Comment: Name Collection Type:: Clean-Voided Midstream Performed By: #### U HCG, URDS, ADDONUAPLUS #### [facility] [address] [place] [address] Bacteria,Urine None Seen Normal None Seen [facility] Comment on above: Order Comment: Name Collection Type:: Clean-Voided Midstream Performed By: #### U HCG, URDS, ADDONUAPLUS #### [facility] [address] [place] [address] Bilirubin,Urine Negative Normal Negative [facility] Comment on above: Order Comment: Name Collection Type:: Clean-Voided Midstream Performed By: #### U HCG, URDS, ADDONUAPLUS #### [facility] [address] [place] [address] [place] Color (U) Yellow Normal Yellow [facility] Comment on above: Order Comment: Name Collection Type:: Clean-Voided Midstream Performed By: #### U HCG, URDS, ADDONUAPLUS #### [facility] [address] [place] [address] [place] Glucose Ql (U) Normal Normal Normal [facility] Comment on above: Order Comment: Name Collection Type:: Clean-Voided Midstream Performed By: #### U HCG, URDS, ADDONUAPLUS #### [facility] [address] [place] [address] Hyaline Casts,Urine 0-8 Normal 0-8 [facility] Comment on above: Order Comment: Name Collection Type:: Clean-Voided Midstream Performed By: #### U HCG, URDS, ADDONUAPLUS #### [facility] [address] [place] [address] Ketones Ql (U) Negative Normal Negative [facility] Comment on above: Order Comment: Name Collection Type:: Clean-Voided Midstream Performed By: #### U HCG, URDS, ADDONUAPLUS #### [address] Leukocyte esterase Test strip Ql (U) Negative Normal Negative [facility] Comment on above: Order Comment: Name Collection Type:: Clean-Voided Midstream Performed By: #### U HCG, URDS, ADDONUAPLUS #### [address] Nitrite,Urine Negative Normal Negative [facility] Comment on above: Order Comment: Name Collection Type:: Clean-Voided Midstream Performed By: #### U HCG, URDS, ADDONUAPLUS #### [address] Occult Blood,Urine 1+ High Negative [facility] [facility] Comment on above: Order Comment: Name Collection Type:: Clean-Voided Midstream Performed By: #### U HCG, URDS, ADDONUAPLUS #### [facility] [address] [place] [address] pH (U) 7.0 [pH] Normal 5.0-9.0 [facility] Comment on above: Order Comment: Name Collection Type:: Clean-Voided Midstream Performed By: #### U HCG, URDS, ADDONUAPLUS #### [facility] [address] [place] [address] Protein,Urine Negative Normal Negative [facility] Comment on above: Order Comment: Name Collection Type:: Clean-Voided Midstream Performed By: #### U HCG, URDS, ADDONUAPLUS #### [facility] [address] [place] [address] RBC LM.HPF (Urine sed) [#/Area] 0 /[HPF] Normal 0-4 [facility] Comment on above: Order Comment: Name Collection Type:: Clean-Voided Midstream Performed By: #### U HCG, URDS, ADDONUAPLUS #### [address] Specificy [place],Urine 1.009 Normal 1.001-1.030 [facility] Comment on above: Order Comment: Name Collection Type:: Clean-Voided Midstream Performed By: #### U HCG, URDS, ADDONUAPLUS #### [address] Squamous Epithelial Cell,Urine 1-2 Normal 0-2 [facility] Comment on above: Order Comment: Name Collection Type:: Clean-Voided Midstream Performed By: #### U HCG, URDS, ADDONUAPLUS #### [address] Urobilinogen,Urine Normal Normal Normal [facility] Comment on above: Order Comment: Name Collection Type:: Clean-Voided Midstream Performed By: #### U HCG, URDS, ADDONUAPLUS #### [address] WBC,Urine 5-9 High 0-4 [facility] Comment on above: Order Comment: Name Collection Type:: Clean-Voided Midstream Performed By: #### U HCG, URDS, ADDONUAPLUS #### [place] [address] [place] Drug Screen,Urineon 02-23-20 Amphetamine Screen,Urine Negative Normal Negative [facility] Comment on above: Performed By: #### U HCG, URDS, ADDONUAPLUS #### [address] Barbiturate Screen,Urine Negative Normal Negative [facility] Comment on above: Performed By: #### U HCG, URDS, ADDONUAPLUS #### [facility] [address] [place] [address] Benzodiazepines Screen,Urine Negative Normal Negative [facility] Comment on above: Performed By: #### U HCG, URDS, ADDONUAPLUS #### [address] Cannabinoid Screen,Urine Positive High Negative [facility] Comment on above: Result Comment: Thes e are unconfirmed results and should not be used for legal purposes. Drug Cut-Off Concentration: AMPH 1000 ng/mL FALLON 200 ng/mL LEONARD 200 ng/mL COCM 300 ng/mL OP 300 ng/mL PCP 25 ng/mL THC 20 ng/mL PERFORMED BY: [place] [id number] PATHOLOGIST ASSURANCE SOURCING MANAGER MOHINI GOMEZ M.D. Performed By: #### U HCG, URDS, ADDONUAPLUS #### [address] Cocaine Screen,Urine Negative Normal Negative [facility] Comment on above: Performed By: #### U HCG, URDS, ADDONUAPLUS #### [address] Opiate Screen,Urine Negative Normal Negative [facility] Comment on above: Performed By: #### U HCG, URDS, ADDONUAPLUS #### [facility] [address] [place] [address] Phencyclidine Screen,Urine Negative Normal Negative [facility] Comment on above: Performed By: #### U HCG, URDS, ADDONUAPLUS #### [facility] [address] [place] [address] Ethyl Alcohol Profileon Ethanol [Mass/Vol] mg/dL Normal [facility] Comment on above: Performed By: #### C BC, CMP, ETOH #### [facility] [address] [place] [address] Percent Ethanol Not performed [facility] Comment on above: Result Comment: PERF ORMED BY: [place] [id number] PATHOLOGIST ASSURANCE SOURCING MANAGER MOHINI GOMEZ M.D. Performed By: #### C BC, CMP, ETOH #### [facility] [address] [place] [address] HCG,Urineon 02-22-2021 Beta HCG ( test) Ql (U) Negative Normal [facility] Comment on above: Order Comment: Name Collection Type:: Clean-Voided Midstream Result Comment: PERF ORMED BY: [place] [id number] PATHOLOGIST ASSURANCE SOURCING MANAGER MOHINI GOMEZ M.D. Performed By: #### U HCG, URDS, ADDONUAPLUS #### [address] Discharge Planning Noteon [employer] Authentication Interface Message Text Social Work Discharge Plan Patient's Contact Information: Address: [address] [place] [address] DISCHARGE PLAN: Home - Other's Disposition Location: as above Transportation to and/or from Appointments: Drives Self Support Person Support Person Aware of Discharge: Yes Support Person's Name: matthieu Number: [phone] Relationship to Patient: mom Prior to discharge, our [facility] pharmacy will deliver your medications to your bedside.: Yes Long Acting Injectables Long Acting Injectables (RUBY): No Discharge Home Health Care: No Psych Medicaid Follow-Up: No Community Follow-up : Yes Community Agency: [facility] Community Povider Follow-up Date: 12/14/20 Community Provider Follow-up Time: 0430 [facility] Follow-up: No Substance Abuse Follow-up Plan: Refused IM Letters Probate/Mental Health Board Notified: No No follow-ups on file. Pt aware of appointment. Pt called and scheduled in person intake. Mom [place]. Lew Oleary [facility],CUSTOMER SERVICE REPRESENTATIVE TEACHER [phone] Normal [facility] Progress Noteson 11-10-2020 Brick Tender Authentication Interface Message Text Attestation signed by [...] Amina Méndez 25 year old female [facility] Admit Date: 11/06/2020 Today's Date: 11/10/2020 Length of stay: 4 day(s) Reason for Admission/ED Presentation: Chief Complaint Patient presents with * Suicidal Ideations Pt tried to kill herself and slit wrists with press box custodian. Pt is pink slipped. SUBJECTIVE Pt seen [...] brigh (more content not included)... Normal [facility] UM Noteon 11-10-2020 Brick Tender Authentication Interface Message Text 11/09/2020 Chief Complaint Patient presents with * Suicidal Ideations ? Pt tried to kill herself and slit wrists with press box custodian. Pt is pink slipped. ??? SUBJECTIVE Pt [...] with her mother, and plans to visit [place] to ride horses with her friend. Pt [...] with her Father, vacationing with family in [place], to ride horses, and eventually returning to [...] and (more content not included)... Normal The [facility] Care Plan Noteon 11-09-2020 Brick Tender Authentication Interface Message Text Problem: Risk For [...] with her Father, vacationing with family in [place], to ride horses, and eventually returning to [...] as (more content not included)... Normal [facility] Brick Tender Authentication Interface Message Text Problem: Risk For [...] with her Father, vacationing with family in [place], to ride horses, and eventually returning to [...] she will permit same, later. Normal [facility] Brick Tender Authentication Interface Message Text Problem: Routine Care: Goal: Patient care will be managed and maintained throughout hospital stay per unit specific routine care procedure Outcome: Progressing Note: Patient in bed sleeping and in no apparent distress with respirations even and unlabored. Slept restful throughout night. Q 15 min safety checks maintained. Normal [facility] Consultson 11-09-2020 Brick Tender Authentication Interface Message Text Wound Ostomy Continence [...] Types: Laceration Wound Description: ~18cm, self-inflicted laceration (press box custodian), closed with 20 sutures Present on Admission?: Present on Transfer to Unit / Floor Ongoing - Patient Being Discharged: Previously Removed / Not Present: Wound Bed Edema;[place];Moist 11/09/20 1500 Surrounding Tissue/Wound Edge Edema 11/09/20 1500 Drainage Scant;Serous 11/09/20 1500 Dressing Other (comment);Telfa (Bacitracin) 11/09/20 1500 Closure Sutures 11/09/20 1500 Wound Anterior;Left Forearm Laceration (Active) Orientation: Anterior;Left Wound Location: Forearm Wound Types: Laceration Wound Description: ~18cm self-inflicted laceration (press box custodian), closed with 14 sutures Present on Admission?: Present on Transfer to Unit / Floor Ongoing - Patient Being Discharged: Previously Removed / Not Present: Wound Bed Moist;[place];Slough 11/09/20 1500 Surrounding Tissue/Wound Edge Ecchymosis;Edema 11/09/20 1500 Drainage Scant;Serosanguineou s 11/09/20 1500 Dressing Telfa;Other (comment) (Bacitracin) 11/09/20 1500 Care Provided to Patient Included: Wounds cleansed with soap and water, bacitracin and Telfa applied. [facility] Nurse Recommendation: BUE Forearms-Wash the sites with [...] MSN, RN, CWOCN Swati Lynn BSN, RN [facility] Nurse Normal [facility] Progress Noteson 11-09-2020 Brick Tender Authentication Interface Message Text [facility] Daily Notes Subjective: Pt participated in morning [...] on 6B. Phu Kebede Tracie Normal [facility] Brick Tender Authentication Interface Message Text [facility] [phone]. They are able to accept pt's insurance and will have availability for new patient intake. The Center would like pt to contact tomorrow with her information to arrange initial intake. SW will follow up with pt in the morning. SONAL Davidson,CUSTOMER SERVICE REPRESENTATIVE TEACHER [phone] Normal [facility] Brick Tender Authentication Interface Message Text Wound Care Consult assessed lacerations to Patient's bilateral forearms. Tension along suture line, due to edema at the sight is causing wound edges to become less proximal between sutures. Awaiting new orders. Meanwhile, Patient encouraged to elevate arms whenever possible and Patient will be provided ice packs. Normal The [facility] Brick Tender Authentication Interface Message Text Attestation signed by [...] to kill herself and slit wrists with press box custodian. Pt is pink slipped. SUBJECTIVE Pt seen [...] with her mother, and plans to visit [place] to ride horses with her friend. Pt [...] with her Father, vacationing with family in [place], to ride horses, and eventually returning to [...] T (more content not included)... Normal [facility] Brick Tender Authentication Interface Message Text Patient declined her ordered Bacitracin/dressing change, preferring to allow her wounds to breathe a little. However, creamy yellow sough can be seen about the wound bed of the distal portion of the laceration to her (L) forearm. Patient did permit the application of a loosely dressed, dry, sterile dressing to keep the are clean. Normal [facility] Brick Tender Authentication Interface Message Text .Teaching Physician Note: [...] to 40 mg.Enedelia Gallardo MD Normal [facility] UM Noteon 11-09-2020 Brick Tender Authentication Interface Message Text To ED 11/06/2020 @ 0246 Admit to inpatient 11/06/2020 @ 1304 To ED: Chief Complaint Patient presents with * Suicidal Ideations ? Pt tried to kill herself and slit wrists with press box custodian. Pt is pink slipped. The history is provided by the Patient. Amina Méndez is a 24 year old female presenting to the ED for CAT2 trauma s/p suicide attempt. Earlier this evening, patient cut both of her forearms with a press box custodian in an attempt to kill herself. She [...] 7x5cm, gaping, actively bleeding from small arterial physician office assistant RUE: large wound on volar aspect of [...] bleeding, sutures were placed in the Trauma [place] to tamponade the bleeding. X-rays without evidence [...] consult: IX. [facility] AND SOCIAL HISTORY[facility] Raised by biological parents. Highest EDUCATION: High school graduate. History of ABUSE or exposure to TRAUMATIC event / service: No.. Current RESIDENCY: lives alone. Current social SUPPORT: no one. LEGAL history: denied. FAMILY psychiatric AND suicide history: No. ? X. MENTAL STATUS EXAMINATION: Appearance AND attitude: psychomotor retardation. Mood: depressed. Affect: congruent (more content not included)... Normal [facility] Care Plan Noteon 2020 Brick Tender Authentication Interface Message Text Problem: Routine Care: [...] with medications and treatment plan. Normal [facility] Brick Tender Authentication Interface Message Text Problem: Risk For [...] this morning, laughing and joking with this medical underwriter despite being on 6B for her birthday. [...] orders. Will continue to monitor. Normal [facility] Brick Tender Authentication Interface Message Text The patient was resting in bed during the night. Respirations were even and nonlabored. And the patient appeared to have slept the shift without disturbance. Patient remains on suicide precautions and 6 minute checks. Normal [facility] Progress Noteson 2020 Brick Tender Authentication Interface Message Text Patients father Abimael [...] might make an attempt again. Normal The [facility] Authentication Interface Message Text Attestation signed by [...] to kill herself and slit wrists with press box custodian. Pt is pink slipped. SUBJECTIVE Pt seen [...] this morning, laughing and joking with this medical underwriter despite being on 6B for her birthday. [...] fair (more content not included)... Normal [facility] Care Plan Noteon 11-07-2020 Brick Tender Authentication Interface Message Text Problem: Risk For [...] Q6 minute checks for safety. Normal [facility] Brick Tender Authentication Interface Message Text Problem: Risk For [...] be dehisced. Dr. Moreno informed. Normal [facility] Brick Tender Authentication Interface Message Text Problem: Routine Care: [...] checks maintained for suicide precautions. Normal [facility] Progress Noteson 11-07-2020 Brick Tender Authentication Interface Message Text Attestation signed by [...] to kill herself and slit wrists with press box custodian. Pt is pink slipped. SUBJECTIVE Pt was [...] au (more content not included)... Normal [facility] BASIC METABOLIC PANELon 10-20 Anion gap [Moles/Vol] 16 mmol/L High 5-13 [facility] Comment on above: Performed By: #### C RP, HEPATIC, TSH HS, HCV, syphilis with confirmation, VITD25, VITB12, CH8, HDL, ANTI-HBS, CORE, ETOH #### [facility] [address] [place] [address], Calcium [Mass/Vol] 8.6 mg/dL Normal 8.4-10.4 [facility] Comment on above: Performed By: #### C RP, HEPATIC, TSH HS, HCV, syphilis with confirmation, VITD25, VITB12, CH8, HDL, ANTI-HBS, CORE, ETOH #### [facility] [address] [place] [address], Chloride [Moles/Vol] 110 mmol/L Normal 97-111 [facility] Comment on above: Performed By: #### C RP, HEPATIC, TSH HS, HCV, syphilis with confirmation, VITD25, VITB12, CH8, HDL, ANTI-HBS, CORE, ETOH #### [facility] [address] [place] [address], CO2 [Moles/Vol] 21 mmol/L Normal 21-30 [facility] Comment on above: Performed By: #### C RP, HEPATIC, TSH HS, HCV, syphilis with confirmation, VITD25, VITB12, CH8, HDL, ANTI-HBS, CORE, ETOH #### [facility] [address] [place] [address], Creatinine [Mass/Vol] 0.67 mg/dL Normal 0.50-1.10 [facility] Comment on above: Performed By: #### C RP, HEPATIC, TSH HS, HCV, syphilis with confirmation, VITD25, VITB12, CH8, HDL, ANTI-HBS, CORE, ETOH #### [facility] [address] [place] [address], ESTIMATED GFR (CKD-EPI) 125 mL/min/1.73sqm Normal >=60 [facility] Comment on above: Performed By: #### C RP, HEPATIC, TSH HS, HCV, syphilis with confirmation, VITD25, VITB12, CH8, HDL, ANTI-HBS, CORE, ETOH #### [facility] [address] [place] [address], Glucose [Mass/Vol] 111 mg/dL High 68-110 [facility] Comment on above: Performed By: #### C RP, HEPATIC, TSH HS, HCV, syphilis with confirmation, VITD25, VITB12, CH8, HDL, ANTI-HBS, CORE, ETOH #### [facility] [address] [place] [address], Potassium [Moles/Vol] 3.9 mmol/L Normal 3.3-5.3 [facility] Comment on above: Performed By: #### C RP, HEPATIC, TSH HS, HCV, syphilis with confirmation, VITD25, VITB12, CH8, HDL, ANTI-HBS, CORE, ETOH #### [facility] [address] [place] [address], Sodium [Moles/Vol] 143 mmol/L Normal 135-148 [facility] Comment on above: Performed By: #### C RP, HEPATIC, TSH HS, HCV, syphilis with confirmation, VITD25, VITB12, CH8, HDL, ANTI-HBS, CORE, ETOH #### [facility] [address] [place] [address], Urea nitrogen [Mass/Vol] 7 mg/dL Low 8- The [facility] Comment on above: Performed By: #### C RP, HEPATIC, TSH HS, HCV, syphilis with confirmation, VITD25, VITB12, CH8, HDL, ANTI-HBS, CORE, ETOH #### [facility] [address], [place], C-REACTIVE PROTEINon 021 CRP [Mass/Vol] mg/L Normal <0.8 The [facility] Comment on above: Performed By: #### C RP, HEPATIC, TSH HS, HCV, syphilis with confirmation, VITD25, VITB12, CH8, HDL, ANTI-HBS, CORE, ETOH ####[facility] [id number] [place], [place], CBC WITH DIFFERENTIALon 10-20 Basophils (Bld) [#/Vol] 0.11 10*3/uL Normal 0.00-0.20 The [facility] Comment on above: Performed By: #### L ACT #### [facility] [address], [place], Basophils/100 WBC (Bld) 0.7 % Normal <=1.9 [facility] Comment on above: Performed By: #### L ACT #### [facility] [address], [place], Eosinophils (Bld) [#/Vol] 0.03 10*3/uL Normal 0.00-0.70 [facility] Comment on above: Performed By: #### L ACT #### [facility] [address], [place], Eosinophils/100 WBC (Bld) 0.2 % Normal 0.1-4.0 [facility] Comment on above: Performed By: #### L ACT #### [facility] [address], [place], Erythrocyte distribution width (RBC) [Ratio] 14.3 % Normal 11.5-14.5 [facility] Comment on above: Performed By: #### L ACT #### [facility] [address], [place], Hematocrit (Bld) [Volume fraction] 36.3 % Normal 36.0-46.0 [facility] Comment on above: Performed By: #### L ACT #### [facility] [address], [place], Hemoglobin (Bld) [Mass/Vol] 11.9 g/dL Low 12.0-15.0 [facility] Comment on above: Performed By: #### L ACT #### [facility] [address], [place], Lymphocytes (Bld) [#/Vol] 3.52 10*3/uL Normal 1.00-4.80 [facility] Comment on above: Performed By: #### L ACT #### [facility] [address], [place], Lymphocytes/100 WBC (Bld) 21.2 % Low 24.0-44.0 [facility] Comment on above: Performed By: #### L ACT #### [facility] [address], [place], MCH (RBC) [Entitic mass] 28.5 pg Normal 26.0-34.0 [facility] Comment on above: Performed By: #### L ACT #### [facility] [address] [place] [address], MCHC (RBC) [Mass/Vol] 32.7 g/dL Normal 32.0-35.9 The [facility] Comment on above: Performed By: #### L ACT #### [facility] [address] [place] [address], MCV (RBC) [Entitic vol] 87 fL Normal 80-100 The [facility] Comment on above: Performed By: #### L ACT #### [facility] [address] [place] [address], MONOCYTE DISTRIBUTION WIDTH 17 Normal <=20 The [facility] Comment on above: Performed By: #### L ACT #### [facility] [address] [place] [address], Monocytes (Bld) [#/Vol] 0.88 10*3/uL Normal 0.20-1.00 [facility] Comment on above: Performed By: #### L ACT #### [facility] [address] [place] [address], Monocytes/100 WBC (Bld) 5.3 % Normal 2.0-11.0 [facility] Comment on above: Performed By: #### L ACT #### [facility] [address], [place], Neutrophils (Bld) [#/Vol] 12.06 10*3/uL High 1.50-8.00 [facility] Comment on above: Performed By: #### L ACT #### [facility] [address], [place], Neutrophils/100 WBC (Bld) 72.7 % Normal 31.0-76.0 The [facility] Comment on above: Performed By: #### L ACT #### [facility] [address] [place] [address], Platelet mean volume (Bld) [Entitic vol] 7.8 fL Normal 7.5-11.2 [facility] Comment on above: Performed By: #### L ACT #### [facility] [address], [place], Platelets (Bld) [#/Vol] 440 10*3/uL High 150-400 [facility] Comment on above: Performed By: #### L ACT #### [facility] [address], [place], RBC (Bld) [#/Vol] 4.16 10*6/uL Normal 4.00-5.20 [facility] Comment on above: Performed By: #### L ACT #### [facility] [address], [place], WBC (Bld) [#/Vol] 16.6 10*3/uL High 4.5-11.5 [facility] Comment on above: Performed By: #### L ACT #### [facility] [address], [place], Care Plan Noteon 11-06-2020 Brick Tender Authentication Interface Message Text Problem: Routine Care: [...] [address] Normal [facility] Consultson 11-06-2020 Brick Tender Authentication Interface Message Text PSYCHIATRY MENTAL HEALTH [...] to kill herself and slit wrists with press box custodian. Pt is pink slipped. ??? Security Site Supervisor: not needed - patient preferred language is [place]. ??? The history is provided by the Patient. Amina Méndez is a 24 year old female presenting to the ED for CAT2 trauma s/p suicide attempt. Earlier this evening, patient cut both of her forearms with a press box custodian in an attempt to kill herself. She [...] boyfriend. She stated that she used a press box custodian and sliced her forearm because she was feeling depressed and suicidal. Patient stated she is having worsening mood, energy, and concentration for the past one week. She stated that when the relationship ended she decided to take the press box custodian to end her life. She also reported [...] 28.5 (more content not included)... Normal [facility] ED Noteson 11-06-2020 Brick Tender Authentication Interface Message Text Sonal Chatman, pt's mother: [phone] Normal [facility] Brick Tender Authentication Interface Message Text Dr wadsworth at bedside stitching up right arm lac Normal [facility] ED Provider Noteson 11-07-19 Brick Tender Authentication Interface Message Text IVON: 24F pmh depression p/w SA by deep forearm lacs. Scant venous bleeding and feeder arterial on exam. Cleaned and sewed. Medically clear. Covid negative. UTox pending. Admit to 6B. Normal The [facility] Brick Tender Authentication Interface Message Text EMERGENCY DEPARTMENT - VISIT NOTE HISTORY OF PRESENT ILLNESS ------ Chief Complaint Patient presents with * Suicidal Ideations Pt tried to kill herself and slit wrists with press box custodian. Pt is pink slipped. Security Site Supervisor: not needed - patient preferred language is Puerto Rican. The history is provided by the Patient. Amina Méndez is a 24 year old female presenting to the ED for CAT2 trauma s/p suicide attempt. Earlier this evening, patient cut both of her forearms with a press box custodian in an attempt to kill herself. She [...] 7x5cm, gaping, actively bleeding from small arterial physician office assistant RUE: large wound on volar aspect of [...] was (more content not included)... Normal [facility] ETHANOL, SERUMon 11-06-2020 Ethanol [Mass/Vol] 138 mg/dL High None Detected The [facility] Comment on above: Performed By: #### C RP, HEPATIC, TSH HS, HCV, syphilis with confirmation, VITD25, VITB12, CH8, HDL, ANTI-HBS, CORE, ETOH #### [facility] PATHOLOGY LABORATORY [address], [place], FULL LIPID PROFILEon 021 Cholesterol [Mass/Vol] 192 mg/dL High <181 The [facility] Comment on above: Performed By: #### C RP, HEPATIC, TSH HS, HCV, syphilis with confirmation, VITD25, VITB12, CH8, HDL, ANTI-HBS, CORE, ETOH ####[facility] PATHOLOGY [id number] [place], [place], Cholesterol in LDL [Mass/Vol] 107 mg/dL Normal <111 The [facility] Comment on above: Performed By: #### C RP, HEPATIC, TSH HS, HCV, syphilis with confirmation, VITD25, VITB12, CH8, HDL, ANTI-HBS, CORE, ETOH ####[facility] PATHOLOGY [id number] [place], [place], Cholesterol.total/Ch olesterol in HDL [Mass ratio] 2.67 {ratio} Normal The [facility] Comment on above: Performed By: #### C RP, HEPATIC, TSH HS, HCV, syphilis with confirmation, VITD25, VITB12, CH8, HDL, ANTI-HBS, CORE, ETOH ####[facility] PATHOLOGY [id number] [place], [place], HDL CHOL 72 mg/dL Normal >54 The [facility] Comment on above: Performed By: #### C RP, HEPATIC, TSH HS, HCV, syphilis with confirmation, VITD25, VITB12, CH8, HDL, ANTI-HBS, CORE, ETOH ####[facility] PATHOLOGY [id number] [place], LDL/HDL 1.49 Normal <3.57 The [facility] Comment on above: Performed By: #### C RP, HEPATIC, TSH HS, HCV, syphilis with confirmation, VITD25, VITB12, CH8, HDL, ANTI-HBS, CORE, ETOH ####S PATHOLOGY [id number] [place], NON-HDL CHOLESTEROL 120 mg/dL Normal <130 The [facility] Comment on above: Performed By: #### C RP, HEPATIC, TSH HS, HCV, syphilis with confirmation, VITD25, VITB12, CH8, HDL, ANTI-HBS, CORE, ETOH ####S PATHOLOGY [id number] [place], [place], Triglyceride [Mass/Vol] 100 mg/dL Normal <151 The [facility] Comment on above: Performed By: #### C RP, HEPATIC, TSH HS, HCV, syphilis with confirmation, VITD25, VITB12, CH8, HDL, ANTI-HBS, CORE, ETOH ####S PATHOLOGY [id number] [place], [place], H AND Franc 11-06-2020 Brick Tender Authentication Interface Message Text (Incorporates notes from Fly Myers MD on 11/06/20) PATIENT ADMISSION MENTAL HEALTH ASSESSMENT - ADULT PSYCHIATRY IDENTIFICATION: Amina Méndez is a 24 year old year old White female she is single. she lives with her mother and works at [employer]. Patient seen alone. Security Site Supervisor needed? No HISTORY OF PRESENT ILLNESS: Patient with a history of HISTORY OF: depressive disorder. Brought by law enforcement. Admitted to inpatient psychiatry (6B) for suicide attempt after cutting her wrists Stressors / Circumstances: relationship problems. Per ED's note Chief Complaint Patient presents with * Suicidal Ideations ? Pt tried to kill herself and slit wrists with press box custodian. Pt is pink slipped. ??? Security Site Supervisor:???not needed - patient preferred language is [place] Rican. ??? The history is provided by the???Patient.??? Amina Méndez???is a 24 year old???female???prese nting to the ED for CAT2 trauma s/p suicide attempt.?Samuel bernard this evening, patient cut both of her forearms with a press box custodian???in???an attempt to kill herself. ???She was taken [...] boyfriend. She stated that she used a press box custodian and sliced her forearm because she was feeling depressed and suicidal. Patient stated she is having worsening mood, energy, and concentration for the past one week. She stated that when the relationship ended she decided to take the press box custodian to end her life. She also reported [...] went to the store and bought a press box custodian, bought liquor, drank it then went home [...] use. FAMILY AND SOCIAL HISTORY: Born in: [place]. Raised by biological parents. Highest (more content not included)... Normal [facility] Brick Tender Authentication Interface Message Text TRAUMA SURGERY H AND P Amina Méndez [id number] BASIC INJURY INFORMATION: Level of activation: Category 2 Trauma Mode of transport: Advance life support Mechanism of injury: Other: Bilateral intentional lacerations Complicating features: Not applicable Protective measures: Not applicable HISTORY OF PRESENT INJURY: Amina Méndez is a 24 year old female brought in by ACLS transport squad following self inflicted lacerations to the volar aspects of her forearms. Pt transferred to [facility] due to concern for arterial injury. Patient reports feeling suicidal and decided to cut herself. Patient reports using a press box custodian. Patient endorses pain to that extremity. Patient [...] inte (more content not included)... Normal [facility] HEPATIC FUNCTION PANELon Albumin [Mass/Vol] 3.9 g/dL Normal 3.4-5.1 The [facility] Comment on above: Performed By: #### C RP, HEPATIC, TSH HS, HCV, syphilis with confirmation, VITD25, VITB12, CH8, HDL, ANTI-HBS, CORE, ETOH ####[facility] PATHOLOGY [id number] [place] [address], ALK 62 IU/L Normal 50-190 The [facility] Comment on above: Performed By: #### C RP, HEPATIC, TSH HS, HCV, syphilis with confirmation, VITD25, VITB12, CH8, HDL, ANTI-HBS, CORE, ETOH ####[facility] PATHOLOGY [id number] [place] [address], ALT [Catalytic activity/Vol] 17 U/L Normal 7-40 The [facility] Comment on above: Performed By: #### C RP, HEPATIC, TSH HS, HCV, syphilis with confirmation, VITD25, VITB12, CH8, HDL, ANTI-HBS, CORE, ETOH ####[facility] PATHOLOGY [id number] [place], AST [Catalytic activity/Vol] 23 U/L Normal 7-40 The [facility] Comment on above: Performed By: #### C RP, HEPATIC, TSH HS, HCV, syphilis with confirmation, VITD25, VITB12, CH8, HDL, ANTI-HBS, CORE, ETOH ####[facility] PATHOLOGY [id number] [place], Bilirubin [Mass/Vol] 0.3 mg/dL Normal 0.1-1.5 The [facility] Comment on above: Performed By: #### C RP, HEPATIC, TSH HS, HCV, syphilis with confirmation, VITD25, VITB12, CH8, HDL, ANTI-HBS, CORE, ETOH ####[facility] PATHOLOGY [id number] [place] [address], Bilirubin.direct [Mass/Vol] 0.10 mg/dL Normal 0.10-0.30 The [facility] Comment on above: Performed By: #### C RP, HEPATIC, TSH HS, HCV, syphilis with confirmation, VITD25, VITB12, CH8, HDL, ANTI-HBS, CORE, ETOH ####[facility] PATHOLOGY [id number] [place] [address], Protein [Mass/Vol] 6.6 g/dL Normal 6.2-8.3 The [facility] Comment on above: Performed By: #### C RP, HEPATIC, TSH HS, HCV, syphilis with confirmation, VITD25, VITB12, CH8, HDL, ANTI-HBS, CORE, ETOH ####[facility] PATHOLOGY [id number] [place] [address], HEPATITIS B CORE ANTIBODYon 11-06-2020 CORE Non-Reactive Normal Nonreactive The [facility] Comment on above: Performed By: #### C RP, HEPATIC, TSH HS, HCV, syphilis with confirmation, VITD25, VITB12, CH8, HDL, ANTI-HBS, CORE, ETOH ####[facility] PATHOLOGY [id number] [place] [address], HEPATITIS B SURFACE ANTIBODY on 11-06-2020 ANTI-HBS < 3.1 Normal The [facility] Comment on above: Order Comment: Nonre active: Samples < 7.5 mIU/mLReactive: Samples >/= 10.0 mIU/mLThe accepted criteria for immunity to HBV is anti-HBs activity >/= 10 mIU/mL, as defined by the WHO International Reference Preparation. Performed By: #### C RP, HEPATIC, TSH HS, HCV, syphilis with confirmation, VITD25, VITB12, CH8, HDL, ANTI-HBS, CORE, ETOH ####[facility] PATHOLOGY [id number] [place] [address], HEPATITIS C ANTIBODYon 11-06 HCV Non-Reactive Normal Nonreactive The [facility] Comment on above: Performed By: #### C RP, HEPATIC, TSH HS, HCV, syphilis with confirmation, VITD25, VITB12, CH8, HDL, ANTI-HBS, CORE, ETOH ####[facility] PATHOLOGY [id number] [place], [place], HIV1 HIV2 AGAB SCRNon 2020 HIV AG-AB SCREEN Non-Reactive Normal Non-Reactive The [facility] Comment on above: Order Comment: HIV I nformation: ???[place] Rev. code 3701.243(E):This information has been disclosed [...] test. Performed By: #### L ACT #### [facility] PATHOLOGY LABORATORY [address], [place], LACTIC ACIDon 11-06-2020 CR LACT 2.8 mmol/L High 0.5-2.0 [facility] Comment on above: Performed By: #### L ACT #### [facility] PATHOLOGY LABORATORY [address], [place], NOVEL CORONAVIRUS (COVID-19) on 11-06-2020 SARS-CoV-2 (COVID-19) RNA ALEA+probe Ql (Unsp spec) Not detected Normal Not Detected [facility] Comment on above: Order Comment: This test is intended for use only under Emergency Use Authorization (EUA). This test was developed, and its performance characteristics determined by [facility] which is certified under CLIA as qualified to perform high complexity clinical laboratory testing. Result Comment: This assay was performed using [employer] RTPCR technology. Performed By: #### C OVID19 #### S PATHOLOGY LABORATORY [address], [place], PARTIAL THROMBOPLASTIN TIMEo n 11-06-2020 aPTT Coag (Bld) [Time] 27 s Normal 25-37 The [facility] Comment on above: Performed By: #### P T, APTT #### S PATHOLOGY LABORATORY [address], [place], PROTHROMBIN TIME AND INRon 0 11-06-2020 INR Coag (PPP) [Relative time] 1.10 {INR} Normal 0.90-1.10 [facility] Comment on above: Performed By: #### P T, APTT #### [facility] PATHOLOGY LABORATORY [address], [place], PT Coag (PPP) [Time] 12.4 s Normal 9.7-12.9 The [facility] Comment on above: Performed By: #### P T, APTT #### [facility] PATHOLOGY LABORATORY [address], [place], Progress Noteson 11-06-2020 Brick Tender Authentication Interface Message Text Copy of pt father insurance card in chart per instructions Normal The [facility] Brick Tender Authentication Interface Message Text RECREATION THERAPY ONGOING [...] School Graduate. 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 Educate Patient On These Available Resources: D and K interprises, Care Link and RAMONITA groups. People of Interest/Support: Mother. Father. Brother. Half-Sister. My mom's boy friend . My dad's . She identified no one else for this question. Continue to assess. Specific Areas Of Focus And Education: Expressive/Creative- yes Social Skill Development-yes Recreational/Active- yes Leisure Time Development-yes Relaxation-yes Community Mental Health Activities/Resources -yes Short Term Goals: I get to go home . Shelter Goals: Not asked. 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 Income: Wages Payor: SP/UNINSURED / Plan: PENDING FINANCIAL PROGRAM EVALUATION / Product Type: Other History: No History of Abuse: Prefers not to answer Legal History: No PATIENT TREATMENT PREFERENCES: none Orthodoxy: Non Christian Family History: no Child Safety Concerns: No TENTATIVE DISCHARGE PLAN: Home - Someone else READMISSION RISK SCORE SHOULD BE: Remain Unchanged REASON READMISSION SCORE NEEDS ADJUSTED: none Social Work Treatment Plan LIVING SITUATION: Home - Someone else Verified Able to Return: Yes Cutter Inspector: Contact Name: Matthieu Relationship: mom ) HOME HEALTH CARE PRIOR TO ADMISSION: No Transportation to and/or from Appointments: Drives Self Current Providers: Other (comment) (none) Blood Collector Already Have a Blood Collector: No Support Person Do You Have a Support Person: Yes Support Person Name: SEe above LINC Referral Appropriate for LINC Referral: No Patient Goals PATIENT GOALS RELATED TO DISCHARGE: d/c HOW WILL PATIENT MEET THEIR GOALS: meds Strengths: Income;Housing Limitations: Other (comment) (limited insight) Customs Brokerage Manager Impression: Pt seen in room. Pt with [...] was unaware of any MH agencies in [place] where she will be living. Pt recently moving out of ' apt to her mom's house. SW contacted [facility]. They reported not taking new clients. SW left message with [facility] [phone] SW spoke with [facility] they are do not have psych services. SW spoke with Jennifer they do not have psych services. SW Spoke with [place] MH board [phone]. They provided following resources: [facility] [phone] accepting new pts [facility] [phone] [facility] [phone]-left [facility] [phone] Walk In Hours MWF -9:30-11 and T, TH 2:30-3:30 Bring ID, proof of residency, insurance card, proof of income Assessment fee of $111 [facility] [address] [phone] unable to leave no answer. SW will await to hear back from above facilities and schedule f/u. Pt may need to be seen at [facility] with telehealth appt as unable to get pt linked closer to home. ROJAS Salmeron [phone] Normal The [facility] Brick Tender Authentication Interface Message Text CAT 2: Suicide attempt Pt is a 24 year old female presenting to the ED following a suicide attempt. Pt cut both wrist/forearm with a press box custodian. Pt presenting to the ED with lacs to bilateral forearms. Pt's mother is her emergency contact and is aware of pt's transfer to the ED. Mother Matthieu Chatman [phone] Plan: psych Teagan Lindsay REHAB AIDE, CUSTOMER SERVICE REPRESENTATIVE TEACHER ED Customs Brokerage Manager Pager: [phone] X [phone] Normal The [facility] SYPHILIS WITH CONFIRMATIONon 11-06-2020 SYPHILIS TOTAL (IGG/IGM) Non-Reactive Normal Non-Reactive The [facility] Comment on above: Order Comment: [...] VITD25, VITB12, CH8, HDL, ANTI-HBS, CORE, ETOH ####[facility] PATHOLOGY [id number] [place], [place], TPPA Normal [facility] Comment on above: Order Comment: [...] VITD25, VITB12, CH8, HDL, ANTI-HBS, CORE, ETOH ####[facility] PATHOLOGY [id number] [place], [place], TOXICOLOGY SCREEN, UNCONFIRM EDon 11-06-2020 AMPH Negative Normal Negative The [facility] Comment on above: Order Comment: [...] toxicology consultation please call the laboratory at [phone]. Performed By: #### T OX SC #### S PATHOLOGY LABORATORY [address] [place] [address], BARBIT Negative Normal Negative The [facility] Comment on above: Order Comment: This [...] toxicology consultation please call the laboratory at [phone]. Performed By: #### T OX SC #### S PATHOLOGY LABORATORY [address] [place] [address], BENZO Negative Normal Negative [facility] Comment on above: Order Comment: This [...] toxicology consultation please call the laboratory at [phone]. Performed By: #### T OX SC #### S PATHOLOGY LABORATORY [address] [place] [address], COCAINE CL Negative Normal Negative The [facility] Comment on above: Order Comment: This [...] toxicology consultation please call the laboratory at [phone]. Performed By: #### T OX SC #### S PATHOLOGY LABORATORY [address] [place] [address], Ethanol [Mass/Vol] Positive Abnormal Cutoff: 1 0 mg/dL [facility] Comment on above: Order Comment: This [...] toxicology consultation please call the laboratory at [phone]. Performed By: #### T OX SC #### S PATHOLOGY LABORATORY [address] [place] [address], FENTANYL Positive Abnormal Negative [facility] Comment on above: Order Comment: This [...] toxicology consultation please call the laboratory at [phone]. Performed By: #### T OX SC #### S PATHOLOGY LABORATORY [address] [place] [address], HYDROCODONE (PM) Negative Normal Negative [facility] Comment on above: Order Comment: This [...] toxicology consultation please call the laboratory at [phone]. Performed By: #### T OX SC #### [facility] PATH[facility] [address] [place] [address], Methadone Ql (U) Negative Normal Negative The [facility] Comment on above: Order Comment: This [...] toxicology consultation please call the laboratory at [phone]. Performed By: #### T OX SC #### [facility] [address] [place] [address], NORBUPRENORPHINE Negative Normal Cutoff: 10 ng/mL [facility] Comment on above: Order Comment: This [...] toxicology consultation please call the laboratory at [phone]. Performed By: #### T OX SC #### S PATHOLOGY LABORATORY [address] [place] [address], OPIATE Negative Normal Negative The [facility] Comment on above: Order Comment: This [...] toxicology consultation please call the laboratory at [phone]. Performed By: #### T OX SC #### S PATHOLOGY LABORATORY [address] [place] [address], OXYCODONE Negative Normal Cutoff: 100 The [facility] Comment on above: Order Comment: This [...] toxicology consultation please call the laboratory at [phone]. Result Comment: Oxyc odone and metabolites of Oxycodone (Oxymorphone, Noroxycodone, and Noroxymorphone) are measured/detected in this assay method. Performed By: #### T OX SC #### S PATHOLOGY LABORATORY [address] [place] [address], PHENCYCL Negative Normal Negative The [facility] Comment on above: Order Comment: This [...] toxicology consultation please call the laboratory at [phone]. Performed By: #### T OX ND #### S PATHOLOGY LABORATORY [address], [place], THC CL Positive Abnormal Negative [facility] Comment on above: Order Comment: This [...] toxicology consultation please call the laboratory at [phone]. Performed By: #### T OX ND #### S PATHOLOGY LABORATORY [address], [place], TSHon 11-06-2020 TSH 1.855 uIU/mL Normal 0.450-5.330 The [facility] Comment on above: Result Comment: Refe sravani range for women as applicable: First Trimester: 0. 050 to 3.700 uIU/mL Second Trimester: 0. 310 to 4.350 uIU/mL Third Trimester: 0. 410 to 5.180 uIU/mL Performed By: #### C RP, HEPATIC, TSH HS, HCV, syphilis with confirmation, VITD25, VITB12, CH8, HDL, ANTI-HBS, CORE, ETOH ####S PATHOLOGY [id number] [place], [place], TYPE AND SCREENon 11-06-2020 ABO and Rh group Nom (Bld) Blood group A Rh(D) positive Normal The [facility] Comment on above: Performed By: #### T S #### [facility] PATHOLOGY LABORATORY [address], [place], ABO and Rh group Nom (Bld) No Previous Results Normal [facility] Comment on above: Performed By: #### T S #### [facility] PATHOLOGY LABORATORY [address], [place], ABSC INT Negative Normal [facility] Comment on above: Performed By: #### T S #### [facility] PATHOLOGY LABORATORY [address], [place], VITAMIN B12 (CYANOCOBALAMIN) on 11-06-2020 Cobalamin (Vitamin B12) [Mass/Vol] 227 pg/mL Low >300 [facility] Comment on above: Order Comment: <152 pg/mL - [id number] - 300 pg/mL- Insufficient>300 pg/mL - Sufficient Performed By: #### C RP, HEPATIC, TSH HS, HCV, syphilis with confirmation, VITD25, VITB12, CH8, HDL, ANTI-HBS, CORE, ETOH ####[facility] PATHOLOGY [id number] [place], [place], VITAMIN D, 25-HYDROXYon 10-20 VITD25 29.5 ng/mL Low 30.0-100.0 [facility] Comment on above: Performed By: #### C RP, HEPATIC, TSH HS, HCV, syphilis with confirmation, VITD25, VITB12, CH8, HDL, ANTI-HBS, CORE, ETOH ####[facility] PATHOLOGY [id number] [place], [place], XR FOREARM LEFTon 11-06-2020 XR FOREARM [...] and agree with the findings. Normal The [facility] XR FOREARM RIGHTon 1 XR FOREARM [...] and agree with the findings. Normal The [facility] PROGRESSon 08-14-2020 PROGRESS HNO ID: [id number] Author: Earl (Phd) Cristi Service: ? Author Type: Psychologist Type: Progress Notes Filed: 08/14/2020 8:09 PM Note Text: [facility] BEHAVIORAL HEALTH EVALUATION DATE OF SERVICE: August 14, 2020 TIME OF SERVICE: 3:07 COST CENTER: [facility] CPT CODE: [id number] Virtual PSYCH DIAGNOSTIC EVAL 60794 Brief Emotional/Behavioral Assessment with scoring/documentatio n BILLING CODE: ENDO PSYL MELISSA Cristi SESSION #: 1 Due to the [facility] and [facility] and the need for ongoing mental health services, the following visit was completed virtually or by phone to reduce the risk of COVID-19 exposure. If this was the first visit not conducted [id number], consent to virtual visits was provided verbally and information was provided via Bi[employer] if available. If Beemt was not available, a copy of the [...] keerthi Snacking at night Pop Tart, chips, Coating Machine Helper cakes Dine out on weekends -- Pizza, [...] She is currently prescribed Prozac by her hand candle dipper. Ms. Méndez has never been an inpatient for a psychiatric reason. The patient has attempted suicide on the following occasions: at age 21 after being fired from job and losing boyfriend, and arguing with dad. Pt tried to stick knife in stomach during argument. No other attempts. Pt reported she went to nursing home because she was aggressive with her father during this incident. Pt had to take women's batter class for [address] Rolando Ba (hand candle dipper) at [facility] prescribes Prozac. Pt had therapy at age [...] brother. Get along but he lives in [place]. MARITAL FAMILY/SIGNIFICANT RELATIONSHIPS Ms. Méndez has never been . The patient has no children. The patient currently lives with boyfriend of 2 years. The patient's significant other is supportive of her decision for surgery. Best friend moved to [place] last year. EDUCATION/EMPLOYMENT The patient has completed 12 years of education (high school). 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 She has partially made [...] have been partially effective. The patient notes anglican practice is: Non-practicing . The patient's cultural [...] to complete the psychological evaluation: *documentation from hand candle dipper regarding mental health management *F psychology follow up appointment in 6-8 weeks *nicotine screening after one month of abstinence from smoking (For assistance with smoking cessation, call [facility] at [phone] or [place] Tobacco Quit Line at [phone]) *[facility] attendance GROUP (To schedule with [facility] Best Start group call [phone]) *Complete Substance Risk Reduction Group (To schedule, call [phone]). Earl Colin, PhD, RD, LD, [facility], Psychologist BEHAVIORAL HEALTH BARIATRIC EVALUATION SUMMARY PATIENT NAME: Amina Méndez 1. Consent: Good 2. Expectations:Good 3. Social support :Fair/Good 4. Mental Health :Fair 5. Chemical/Alcohol Abuse/Dependence: Fair 6. Eating Behaviors:Fair 7. Adherence : Good 8. Coping/Stressors:Evangelist r 9. Overall Psychological Impression: Fair Normal [facility] Vital Signs Date Time Vital Sign Value Performing Clinician Livire peralta 05-06-2024 09:05-0500 Body mass index (BMI) [Ratio] 38.11 kg/m2 Rachel VILCHIS Work Phone: [facility] 05-06-2024 09:05-0500 Body weight 103.87 kg Rachel VILCHIS Work Phone: [facility] 05-06-2024 09:05-0500 Diastolic blood pressure 72 mm[Hg] Rachel VILCHIS Work Phone: [facility] 05-06-2024 09:05-0500 Systolic blood pressure 118 mm[Hg] Rachel VILCHIS Work Phone: [facility] 04-08-2024 10:06-0500 Body height 165.1 cm Rachel VILCHIS Work Phone: [facility] 04-08-2024 10:06-0500 Body mass index (BMI) [Ratio] 38.77 kg/m2 Rachel VILCHIS Work Phone: [facility] 04-08-2024 10:06-0500 Body weight 105.69 kg Rachel VILCHIS Work Phone: [facility] 04-08-2024 10:06-0500 Diastolic blood pressure 72 mm[Hg] Rachel VILCHIS Work Phone: [facility] 04-08-2024 10:06-0500 Systolic blood pressure 122 mm[Hg] Rachel VILCHIS Work Phone: [facility] 03-11-2024 08:51-0400 Body weight 108.01 kg Luiz Panchito DO Work Phone: [facility] 03-11-2024 08:51-0400 Diastolic blood pressure 78 mm[Hg] Luiz Panchito DO Work Phone: [facility] 03-11-2024 08:51-0400 Systolic blood pressure 118 mm[Hg] Luiz Panchito DO Work Phone: [facility] 02-05-2024 13:29-0400 Body weight 112.86 kg Luiz Panchito DO Work Phone: [facility] 02-05-2024 13:29-0400 Diastolic blood pressure 74 mm[Hg] Luiz Panchito DO Work Phone: [facility] 02-05-2024 13:29-0400 Systolic blood pressure 120 mm[Hg] Luiz Panchito DO Work Phone: [facility] Encounters Encounter Date Encounter Type Care Provider Facility Start: 05-06-2024 End: 05-06-2024 Bamboo flowsheet Rachel VILCHIS Work Phone: [facility] Start: 05-06-2024 End: 05-06-2024 Bamboo flowsheet Rachel VILCHIS Work Phone: [facility] Start: 05-06-2024 End: 05-06-2024 Office outpatient visit 15 minutes Rachel VILCHIS Work Phone: [facility] Comment on above: Weight gain; Encounter for weight management Start: 05-06-2024 End: 05-06-2024 ambulatory RACHEL ZAIDI Not Available Start: 04-08-2024 End: 04-08-2024 Bamboo flowsheet Rachel Zaidi PA Work Phone: [facility] Start: 04-08-2024 End: 04-08-2024 Bamboo flowsheet Rachel VILCHIS Work Phone: [facility] Start: 04-08-2024 End: 04-08-2024 ambulatory RACHEL ZAIDI Not Available Start: 04-08-2024 End: 04-08-2024 Office outpatient visit 15 minutes Rachel VILCHIS Work Phone: [facility] Comment on above: Weight gain; Encounter for weight management Start: 03-11-2024 End: 03-11-2024 Bamboo flowsheet Luiz Panchito DO Work Phone: [facility] Start: 03-11-2024 End: 03-11-2024 Bamboo flowsheet Luiz Panchito DO Work Phone: [facility] Start: 03-11-2024 End: 03-11-2024 Office outpatient visit 15 minutes Luiz Panchito DO Work Phone: [facility] Comment on above: Encounter for weight management Start: 03-11-2024 End: 03-11-2024 ambulatory LUIZ PANCHITO Not Available Start: 02-05-2024 End: 02-05-2024 Bamboo flowsheet Luiz Panchito DO Work Phone: [facility] Start: 02-05-2024 End: 02-09-2024 Bamboo flowsheet Luiz Panchito DO Work Phone: [facility] Start: 02-05-2024 End: 02-09-2024 Clinisync Result Encounter Luiz Panchito DO Work Phone: [facility] External Department Unsolicited Start: 02-05-2024 End: 02-05-2024 Patient encounter procedure Luiz Panchito DO Work Phone: [facility] Work Phone: Start: 02-05-2024 End: 02-05-2024 Periodic preventive med est patient 18-39 yrs Luiz Flanagan DO Work Phone: [facility] Comment on above: Well woman exam with routine gynecological exam; Encounter for weight management; Anxiety and depression ([facility]) Start: 02-05-2024 End: 02-05-2024 ambulatory LUIZ FLANAGAN Not Available Start: 01-24-2022 End: 01-25-2022 ambulatory BOBBY BRADFORD [facility] Start: 12-21-2021 End: 12-21-[address] ROLANDO BA Facility:[facility] Start: 02-25-2021 End: 02-25-[address] BOBBY BRADFORD Facility:[facility] Start: 11-06-2020 End: 11-10-2020 Evaluation and management of inpatient IP PSYCHIATRIC ADULT CONSULT Facility:[facility] Start: 11-06-2020 ambulatory UNKNOWN PROVIDER Facili ty:[facility] Procedures Date Procedure Procedure Detail Performing Clinician Start: 02-05-2024 IGP,APTIMA HPV,AGE GDLN Luiz Flanagan DO Work Phone: Start: 02-05-2024 Cytp cerv/vag auto t hin layer prep mnl screen Luiz Flanagan DO Work Phone: Plan of Treatment Date Care Activity Detail Author Start: 02-11-2025 End: 02-11-2025 Patient encounter procedure 02/11/2025 8:30 AM EDT Office Visit [facility] [address] [place] [address] Luiz Flanagan DO [address] [place], [place] [id number] [facility] Start: 05-06-2024 End: 05-06-2024 Patient encounter procedure [facility] Comment on above: Arrived Start: 04-08-2024 End: 04-08-2024 Patient encounter procedure 04/08/2024 9:30 AM EST Office Visit [facility] [address] [place] [id number] Rachel Zaidi PA [address] [place], [place] [id number] [facility] Start: 03-11-2024 End: 03-11-2024 Patient encounter procedure [facility] Comment on above: Arrived Start: 02-05-2024 End: 02-05-2024 Patient encounter procedure 02/05/2024 1:30 PM EDT Office Visit [facility] [address] [place] [address] Luiz Flanagan DO [address] [place], [place] [id number] Arrived [facility] Comment on above: Arrived Cytology Cervical or vaginal smear or scraping study Pap Smear Pathology and Cytology Routine Well woman exam with routine gynecological exam Ordered: 02/05/2024 [facility] Work Phone: Comment on above: Ordered: 02/05/2024 Payers Date [id number] 2024 Unknown [id number] 2018 Unknown [id number] 1997 Unknown [id number] 1997 Unknown [id number]. 732 1997 Unknown [id number]. 732 1997 Unknown [id number] [id number]. 593 1997 Unknown [id number] [id number]. 593 1997 Unknown [id number] [id number]. 1259 1997 Unknown [id number] [id number]. 1259 1997 Unknown [id number] [id number]. 1259 1997 Unknown [id number] [id number]. 1259 1959 Unknown [id number] 1959 Unknown [id number] Social History Date Type Detail Facility Tobacco smoking stat [facility] Tobacco smoking consumption unknown [facility] Start: 1997 Sex assigned at Not on file [facility] identity [facility] 11-06-2020 to 05-06-2024 DENG [...] of DENG Jamil documented in this encounter [facility] 04-08-2024 History of Present illness Narrative Reason [...] Problems Diagnosis Date Noted Anxiety and depression ([facility]) 02/05/2024 Resolved Ambulatory Problems Diagnosis Date [...] of: DENG Jamil documented in this encounter [facility] 03-11-2024 History of Present illness Narrative Reason [...] Problems Diagnosis Date Noted Anxiety and depression ([facility]) 02/05/2024 Resolved Ambulatory Problems Diagnosis Date [...] nursing note reviewed. Exam conducted with a pin drafter present. Vitals: There is no height or [...] Luiz Flanagan DO documented in this encounter [facility] 02-05-2024 History of Present illness Narrative Reason [...] nursing note reviewed. Exam conducted with a pin drafter present. Vitals: There is no height or [...] Luiz Flanagan DO documented in this encounter [facility] 11-10-2020 Note ADMISSION INFORMATIO N - INPATIENT [...] to kill herself and slit wrists with press box custodian. Pt is pink slipped. ??? Security Site Supervisor:???not needed - patient preferred language is [place]ican. ??? The history is provided by the???Patient.??? Amina Méndez???is a 24 year old???female???presenting to the ED for CAT2 trauma s/p suicide attempt.?Earlier this evening, patient cut both of her forearms with a press box custodian???in???an attempt to kill herself. ???She was taken [...] boyfriend. She stated that she used a press box custodian and sliced her forearm because she was feeling depressed and suicidal. Patient stated she is having worsening mood, energy, and concentration for the past one week. She stated that when the relationship ended she decided to take the press box custodian to end her life. She also reported [...] went to the store and bought a press box custodian, bought liquor, drank it then went home [...] was admitted (more content not included)... [facility] 11-10-2020 Note Problem: Routine Car e: Goal: Patient care will be managed and maintained throughout hospital stay per unit specific routine care procedure Note: Pt appeared to have slept this shift without disturbance. Continue and maintain Q15 min checks for safety. [facility] 11-09-2020 Note Pharmacy Psychoeduca tion Group [...] out for each group participant. Kimberlyn Armendariz, [facility], PharmD, BCPP Ext [phone] [facility] 11-06-2020 Note PROCEDURE NOTE: LACE RATION [...] and Emergency General Surgery Department of Surgery [facility] Pager [phone] [facility] Evaluation note Diagnosis Encounter for weight [...] section and content) DATE CREATED AUTHOR 08/16/2020 [facility] DATE CREATED AUTHOR AUTHOR'S ORGANIZ ATION 06/15/2021 [facility] DATE CREATED AUTHOR AUTHOR'S ORGANIZ ATION 06/28/2021 [facility] DATE CREATED AUTHOR AUTHOR'S ORGANIZ ATION 12/24/2021 [facility] DATE CREATED AUTHOR AUTHOR'S ORGANIZ ATION 01/26/2022 [facility] DATE CREATED AUTHOR AUTHOR'S ORGANIZ ATION 05/07/2024 [facility] d[facility] Specialists [employer] Care Teams (unrecognized sec tion and content) Brake Machine Operator Relationship Specialty Start Date End Date Bobby Bradford MD [address] [place] [address] PCP - General Family Medicine 02/05/24 Brake Machine Operator Relationship Specialty Start Date End Date Bobby Bradford MD [address] [place] [facility] [place] [address] PCP - General Family Medicine 02/05/24 Brake Machine Operator Relationship Specialty Start Date End Date Bobby Bradford MD [address] [place] [facility] [place] [address] PCP - General Family Medicine 02/05/24 Brake Machine Operator Relationship Specialty Start Date End Date Bobby Bradford MD [address] [place] [facility] [place] [address] PCP - General Family Medicine 02/05/24 Brake Machine Operator Relationship Specialty Start Date End Date Bobby Bradford MD [address] [place] [facility] [place] [address] PCP - General Family Medicine 02/05/24 Brake Machine Operator Relationship Specialty Start Date End Date Bobby Bradford MD [address] [place] [facility] [place] [address] PCP - General Family Medicine 02/05/24 Brake Machine Operator Relationship Specialty Start Date End Date Bobby Bradford MD [address] [place] [facility] [place] [address] PCP - General Family Medicine 02/05/24 Brake Machine Operator Relationship Specialty Start Date End Date Bobby Bradford MD [address] [place] [address] PCP - General Family Medicine 02/05/24 Reason [...] BE BASED ON THE PRIMARY CLINICAL RECORDS. [email or web address] provides no warranty or guarantee of the accuracy or completeness of information in this document.
[2025-03-07 15:13] LABS: Age Gdln ACOG Testing Note (.); IGP, rfx Aptima HPV ASCU Note (.)
== END 2025-03-04 15:32 | disposition home or self-care (01) ==
LOC: LAB 15:31
PROVIDERS: PCP Family Medicine; Visit Provider Physician Assistant
DX: Z01.419 Encounter for gynecological examination (general) (routine) without abnormal findings (principal)
CPT/HCPCS: 88175